=== PATIENT | female | born 1970 | race Caucasian/White ===

== ENCOUNTER 2023-09-01 09:56 | Outpatient (AMB) | payer OTHER, SELFPAY ==
--- NOTE | 2023-09-01 10:08 | MHC.PC.OV ---
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 She needs refills on Escitalopram 20 1 daily, and Famotidine 40 mg, for 90 day refills. Patient would like referrals to gynecology, colonoscopy, mammogram, neurology for MS dx. 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 ?? Prior PCP:?Terence BULLOCK at [facility] in [place], [place] Last office visit/CPE:?June 2022 Acute issue(s):? Concern for sleep apnea, ?? PMHx: MS diagnosed [address] Tolliver [place], [place]. , Anxiety,?GERD/Gastritis. SurgHx:? Cervical C6-7 discectomy 2010. Tubal Ligation FHx:? Mom: HyperParathyroid. Dad: Brain Aneurysm. GM: Osteoporosis. SocHx: Quit cigs 2007. EtOH: very seldom. No drugs PFSH Medical History (Updated 09/01/23 @ 11:09 by Soren Mast) Multiple sclerosis Surgical History (Updated 09/01/23 @ 11:01 by Soren Mast) H/O tubal ligation Hx of discectomy H/O spinal fusion Family History (Updated 09/01/23 @ 10:23 by Ida Garcia CMA) Daughter Mental health disorder Social History (Updated 09/01/23 @ 10:28 by Ida Garcia CMA) Household Members: None Both parents involved: No Caregiver staying overnight: No Housing: House Are you a primary medical care administrator to a significant other at home: No Do you presently have visiting nurse or other home services: No 75 years or older and lives alone: No Alcohol intake: current Alcohol intake frequency: holidays/special occasions only Alcohol type: wine Patient Tobacco Use Status: Former Tobacco user e-Cigarette/Vaping Use: Never Used service: Yes Current occupational status: employed 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 1. Little interest or pleasure in doing things: not at all 2. Feeling down, depressed, or hopeless: not at all 3. Trouble falling or staying asleep, or sleeping too much: not at all 4. Feeling tired or having little energy: not at all 5. Poor appetite or overeating: not at all 6. Feeling bad about yourself - or that you are a failure or have let yourself or your family down: not at all 7. Trouble concentrating on things, such as reading the newspaper or watching television: not at all 8. Moving or speaking so slowly that other people could have noticed. Or the opposite - being so fidgety or restless that you have been moving around a lot more than usual: not at all 9. Thoughts that you would be better off or of hurting yourself in some way: not at all Total score: 0 Depression Screening Interpretation: Negative Depression Screening Done: Yes Source: Developed by Drs. Kike Fontaine, Kerline Merlos, Marino Haines and colleagues, with an educational everardo from [employer]. Thrive Questionnaire Date Thrive assessed: 09/01/23 I am a: Patient What is your living situation today?: I have a steady place to live Within the past 12 months, did the food you bought not last and you didn't have the money to get more?: Never true Within the past 12 months, did you worry whether your food would run out before you got money to buy more?: Never true Do you have trouble paying for medicines?: No Do you have trouble getting transportation to medical appointments?: No Do you have trouble paying your heating and electricity bill?: No Do you have trouble taking care of your child, family member or friend?: No Do you have trouble with day-to-day activities such as bathing, preparing meals, shopping, managing finances, etc.?: No Are you currently unemployed and looking for a job?: No Are you interested in more education?: No THRIVE Score: 0 AUDIT C Alcohol Use Questionnaire (AUDIT-C) 1. How often do you have a drink containing alcohol?: Monthly or less 2. How many drinks containing alcohol do you have on a typical day when you are drinking?: 1 or 2 3. How often do you have six or more drinks on one occasion?: Never Total Score: 1 DOUG-7 AMB Questionnaire DOUG-7 Date DOUG - 7 assessed: 09/01/23 Feeling nervous, anxious, or on edge: 0 = Not at all Not being able to stop or control worryin = Not at all Worrying too much about different things: 0 = Not at all Trouble relaxin = Not at all Being so restless that it is hard to sit still: 0 = Not at all Becoming easily annoyed or irritable: 0 = Not at all Feeling afraid as if something awful might happen: 0 = Not at all Total DOUG-7 score (0-4 normal; 5-9 mild; 10-14 moderate; 15-21 severe): 0 Source: Developed by Drs. Kike Fontaine, Kerline Merlos, Marino Haines and colleagues, with an educational everardo from [employer]. DOUG-7 Assessment Billing DOUG-7 Assessment Tool: DOUG-7 Assessment 19032 Review of Systems Const Denies chills, Denies fatigue, Denies fever(s), Denies headache(s) and Denies weakness ENT Denies dizziness and Denies headache(s) Card Denies chest pain, Denies lightheadedness, Denies dyspnea and Denies other (Palpitations) Resp Denies cough, Denies dyspnea, Denies wheezing and Denies other ( shortness of breath) Musc Denies numbness and Denies tingling Neuro Denies dizziness, Denies headache(s), Denies numbness, Denies tingling, Denies paresthesias and Denies weakness Psych Denies anxiety and Denies depression Endo Denies fatigue Aller/Immun Denies wheezing Physical exam (Primary Care) Vital Signs: Last Vital Signs Pulse 69 09/01/23 10:09 BP 110/62 09/01/23 10:09 Pulse Ox 97 09/01/23 10:09 Oxygen Delivery Method Room Air 09/01/23 10:09 BMI result Body Mass Index 35.4 Tobacco/Smoking Status: Tobacco use Status Tobacco use date assessed 09/01/23 09/01/23 10:33 Patient Tobacco Use Status Former Tobacco user 09/01/23 10:33 e-Cigarette/Vaping Use Never Used 09/01/23 10:33 PHQ-9: PHQ-9 Score PHQ-9: Total score 0 09/01/23 10:38 Depression Screening Interpretation: Negative Thrive Assessment: Date of Thrive Assessment Date Thrive assessed 09/01/23 09/01/23 10:33 Const General: no acute distress and well developed Nutritional Appearance: well nourished Orientation/consciousness: patient oriented x3 HENMT Head: Yes normocephalic and Yes atraumatic Eyes General: appearance normal, both eyes and all related structures Pupils: Equal, round and reactive pupils present EOM: EOMs intact bilaterally Resp Effort & Inspection: normal respiratory effort Auscultation: clear to auscultation bilaterally Cardio Rate: regular rate Rhythm: regular rhythm Heart sounds: S1 normal heart sound present, S2 normal heart sound present, no gallops, no murmurs and no rubs Neuro General: patient oriented x3 and gait normal Cranial nerves: Yes Equal, round and reactive pupils present Psych Affect: normal affect Assessment and Plan Assessment & Plan (1) Multiple sclerosis: Code(s): G35 - Multiple sclerosis Plan: Patient?notes?diagnosis?of?multiple?sclerosis?and?will?have?her?neurologist's?notes?forwarded Referred?to?neurology?at?patient?request?as?she?has?moved?from?[place] (2) Depression with anxiety: Code(s): F41.8 - Other specified anxiety disorders Plan: Stable?on?escitalopram?but?patient?would?like?a?referral?to?a?therapist Refer?to?nurse?navigator?to?connect?her?with?a?therapist (3) Sleep apnea: Code(s): G47.30 - Sleep apnea, unspecified Plan: Witnessed?apneic?events?by??while?sleeping Referred?to?Sleep?Medicine (4) GERD (gastroesophageal reflux disease): Code(s): K21.9 - Gastro-esophageal reflux disease without esophagitis Plan: Continue?famotidine Referred?to?Gastroenterology (5) Screening for cervical cancer: Code(s): Z12.4 - Encounter for screening for malignant neoplasm of cervix Plan: 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?to?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?[facility] [place]?at?patient?request (6) Breast cancer screening by mammogram: Code(s): Z12.31 - Encounter for screening mammogram for malignant neoplasm of breast Plan: Mammogram?ordered (7) Screening for colon cancer: Code(s): Z12.11 - Encounter for screening for malignant neoplasm of colon Plan: As?above,?patient?is?referred?to?Gastroenterology (8) Hx of discectomy: Code(s): Z98.890 - Other specified postprocedural states Plan: Currently?stable?but?does?get?some?discomfort Encouraged?her?to?perform?exercises?learned?at?physical?therapy If?worsening?will?refer?her?to?physical?therapy?again (9) Obesity: Code(s): E66.9 - Obesity, unspecified Plan: Referred?to?nutrition?at?patient?request Orders: Orders Comprehensive [place]. Panel Fast Today Z00.00 - Encounter for general adult medical examination without abnormal findings Lipid Panel Today Z00.00 - Encounter for general adult medical examination without abnormal findings UA and rflx microscopic Today Z00.00 - Encounter for general adult medical examination without abnormal findings Vitamin D 25-OH Total Today E55.9 - Vitamin D deficiency, unspecified MM tomosynthesis screening BI Today Z12.31 - Encounter for screening mammogram for malignant neoplasm of breast Complete Blood Count Auto Diff Today Z00.00 - Encounter for general adult medical examination without abnormal findings Microalbumin, Random (w Creat) Today I10 - Essential (primary) hypertension TSH reflex Free T4 Today Z00.00 - Encounter for general adult medical examination without abnormal findings Vitamin B12 and Folate Today E53.8 - Deficiency of other specified B group vitamins Referrals Neurology Referral G35 - Multiple sclerosis Web Search Evaluator Nutrition Referral E66.9 - Obesity, unspecified SSIS ARCHITECT Referral Z12.4 - Encounter for screening for malignant neoplasm of cervix Sleep Medicine Referral G47.30 - Sleep apnea, unspecified Gastroenterology Referral K21.9 - Gastro-esophageal reflux disease without esophagitis, Z12.11 - Encounter for screening for malignant neoplasm of colon Nurse Navigator Referral F41.8 - Other specified anxiety disorders Medications: New escitalopram oxalate 20 mg PO DAILY 90 days 90 tabs 3RF famotidine 40 mg PO DAILY 90 days 90 tabs 3RF Coding Level of Care Code New Pt Level 3 (87689) Diagnoses Multiple sclerosis G35 Depression with anxiety F41.8 Sleep apnea G47.30 GERD (gastroesophageal reflux disease) K21.9 Screening for cervical cancer Z12.4 Breast cancer screening by mammogram Z12.31 Screening for colon cancer Z12.11 Hx of discectomy Z98.890 Obesity E66.9 Additional Codes DOUG-7 Assessment Billing - DOUG-7 Assessment Tool: DOUG-7 Assessment 37297 ([id number])
[2023-09-01 10:09] VITALS: BP 110/62; PULSE 69; O2SAT 97; BMI 35.4
== END 2023-09-01 11:07 | disposition home or self-care (01) ==
PROVIDERS: PCP Family Medicine; Visit Provider Family Medicine
DX: G35 Multiple sclerosis (principal); F41.8 Other specified anxiety disorders; G47.30 Sleep apnea, unspecified; Z68.35 Body mass index [BMI] 35.0-35.9, adult; E66.9 Obesity, unspecified; K21.9 Gastro-esophageal reflux disease without esophagitis; Z12.31 Encounter for screening mammogram for malignant neoplasm of breast; Z12.11 Encounter for screening for malignant neoplasm of colon; Z98.890 Other specified postprocedural states
CPT/HCPCS: 99203

== ENCOUNTER 2023-09-30 13:15 | Outpatient (AMB) | payer OTHER, SELFPAY ==
--- NOTE | 2023-09-30 13:17 | A.OFFVIS_ITS ---
VS Expanded 09/30/23 13:24 09/30/23 13:37 Height 5 ft 7 in 5 ft 7 in Weight 228 lb 6.382 oz 228 lb BMI 35.8 35.7 Intake Visit Reasons: OBESITY/LVM Allergies No Known Allergies Allergy (Verified 09/01/23 10:14) Nutrition Presentation Details: Pt presents for MNT for obesity. The Pt was referred by Dr. Chela Castaneda Pt reports having lack of meal planning BS Monitoring Most Recent Diabetes Results: No Data to Display SSJ-Gcfrpih-Zp.Jeor Equation Height: 5 ft 7 in Weight: 228 lb Resting Metabolic Rate: 1679.94 Calculated Activity Level: Mild Activity Calories Needed to Maintain Weight: 2309.92 Diagnosis Nutrition problem #1: food nutri know defi As related to (etiology) #1: diagnosis As evidenced by (sign/symptom) #1: knowledge deficit of diet PFSH Medical History (Updated 09/01/23 @ 11:09 by Soren Mast) Multiple sclerosis Surgical History (Updated 09/01/23 @ 11:01 by Soren Mast) H/O tubal ligation Hx of discectomy H/O spinal fusion Family History (Updated 09/01/23 @ 10:23 by Ida Garcia CMA) Daughter Mental health disorder Social History (Updated 09/01/23 @ 10:28 by Ida Garcia CMA) Household Members: None Both parents involved: No Caregiver staying overnight: No Housing: House Are you a primary health care consultant to a significant other at home: No Do you presently have visiting nurse or other home services: No 75 years or older and lives alone: No Alcohol intake: current Alcohol intake frequency: holidays/special occasions only Alcohol type: wine Patient Tobacco Use Status: Former Tobacco user e-Cigarette/Vaping Use: Never Used service: Yes Current occupational status: employed 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 [employer] Cognitive needs: No Hearing needs: Yes (wears hearing aids for tinnitis) Vision needs: Yes (Patient wears glasses.) Assessment & Plan Assessment & Plan (1) Obesity: Code(s): E66.9 - Obesity, unspecified Category: Medical Plan Wt: 108 Kg ( 09/28 ) Est kcal needs as per MSJ: 2300 (40% carb, 30% protein/fat) Est fluid needs as per 25-30 ml/d: 3200 Est prot per day as per 1 g/kg bw: 108 Recommend fiber intake : 8-10 g per day and gradually increase to 25-28 g per day for women and 35-38 g for men or as tolerated Recommend sodium intake per day : less than 2000 mg Educated patient on: ( R = reviewed V = verbalizes understanding N/R = needs review N/A = not applicable * Food sources of carbohydrate, adequate serving sizes and its role in various health conditions: R * Differences between complex carbohydrates a simple carbohydrates, role of fiber in diet: R * Lean protein sources of foods: R * Differences between types of fats and role in diet (mono on saturated fat fatty acids, saturated fatty acids, trans fats): R V N/R * Food sources of sodium in salt and healthy modifications for heart health in kidney health: R V R/V * Vitamins and minerals: R V N/R * Healthy plate method concept: R * Physical activity: Benefits a precaution: R V N/R Patient Instructions: Have 3 meals a day working on reducing carbs to< 75 g per meal HAve 2-3 snacks per day consisting of, 0-20 g of carbs HAve water with meals Coding Level of Care Code Nutr Indiv Intake (16961) Diagnoses Obesity E66.9 Time Spent (min) 30
[2023-09-30 13:24] VITALS: BMI 35.8
[2023-09-30 13:37] VITALS: BMI 35.7
== END 2023-09-30 14:01 | disposition home or self-care (01) ==
PROVIDERS: PCP Family Medicine; Visit Provider Dietitian, Registered
DX: E66.9 Obesity, unspecified (principal)

== ENCOUNTER → 2023-09-30 13:15 | Outpatient (BNVA) | payer OTHER, SELFPAY | PROVIDERS: PCP Family Medicine; Visit Provider Dietitian, Registered | DX: E66.9 Obesity, unspecified (principal); Z68.35 Body mass index [BMI] 35.0-35.9, adult; Z71.3 Dietary counseling and surveillance | CPT/HCPCS: 97802 ==

== ENCOUNTER 2023-12-14 15:41 | Outpatient (REF) | payer OTHER, SELFPAY ==
--- NOTE | ~2023-12-14 | MM_ITS ---
EXAMINATION: MM SCREENING DIGITAL BREAST TOMOSYNTHESIS, BILATERAL CLINICAL INFORMATION: Screening. Asymptomatic. COMPARISON: Mammography: Comparison is made with available priors TECHNIQUE: Digital breast mammography with tomosynthesis is performed in both the craniocaudal and mediolateral oblique views along with computer-aided detection (CAD). FINDINGS: There are scattered areas of fibroglandular density (ACR BI-RADS breast composition Category b). There are no significant masses, abnormal calcifications, or other abnormalities. MM/MM tomosynthesis screening BI IMPRESSION: No mammographic evidence of malignancy. ASSESSMENT: BI-RADS BI-RADS 1 - Negative RECOMMENDATION: Routine annual mammography screening. 1 year F/U This examination should not preclude the clinical evaluation of a suspicious palpable abnormality. This patient's information was entered into a reminder system with a target due date for their next mammogram. Electronically signed by: Pati Del Rio DO 12/28/2023 12:18 PM EDT
== END 2023-12-14 15:42 | disposition home or self-care (01) ==
LOC: HO.MAMMO 15:41
PROVIDERS: PCP Family Medicine; Visit Provider Family Medicine
DX: Z12.31 Encounter for screening mammogram for malignant neoplasm of breast (principal)
CPT/HCPCS: 77063; 77067

== ENCOUNTER → 2023-12-14 15:45 | Outpatient (BNV) | payer OTHER, SELFPAY | PROVIDERS: PCP Family Medicine; Visit Provider Internal Medicine | DX: Z12.31 Encounter for screening mammogram for malignant neoplasm of breast (principal) | CPT/HCPCS: 77063; 77067 ==

== ENCOUNTER 2023-12-28 08:25 | Outpatient (REF) | payer OTHER, SELFPAY ==
[2023-12-30 17:53] LABS: HPV mRNA E6/E7 Not Detected (Not Detected)
== END 2023-12-28 08:26 | disposition home or self-care (01) ==
LOC: HO.LNP 08:25
PROVIDERS: PCP Family Medicine; Visit Provider Advanced Practice Midwife
DX: Z01.419 Encounter for gynecological examination (general) (routine) without abnormal findings (principal); R23.2 Flushing; N95.2 Postmenopausal atrophic vaginitis
CPT/HCPCS: 87624; 88175

== ENCOUNTER 2023-12-28 08:25 | Outpatient (AMB) | payer OTHER, SELFPAY ==
[2023-12-28 08:32] VITALS: BP 120/76; BMI 35.5
--- NOTE | 2023-12-28 08:32 | A.OFFVIS_ITS ---
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 She is doing well with concerns: severe hot flashes, LMP age 52 >12months, and dysparenia. Attempting to eat a healthy diet with calcium and vitamin D and stays active with exercise-walking. STI testing offered; she declines. Last pap smear; approx. 5 years ago. Last mammogram; pending read. Colonoscopy consult appt. is booked. Denies any family history of breast or colon cancer. Paternal great aunt- ovarian cancer. [facility] Medical History (Updated 12/28/23 @ 08:54 by Brittni Stovall CNM) Depression with anxiety GERD (gastroesophageal reflux disease) Multiple sclerosis Surgical History H/O tubal ligation Hx of discectomy H/O spinal fusion Family History Daughter Mental health disorder Social History Household Members: None Both parents involved: No Caregiver staying overnight: No Housing: House Are you a primary career orientation teacher to a significant other at home: No Do you presently have visiting nurse or other home services: No 75 years or older and lives alone: No Alcohol intake: current Alcohol intake frequency: holidays/special occasions only Alcohol type: wine Patient Tobacco Use Status: Former Tobacco user e-Cigarette/Vaping Use: Never Used service: Yes Current occupational status: employed 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 [employer] Cognitive needs: No Hearing needs: Yes (wears hearing aids for tinnitis) Vision needs: Yes (Patient wears glasses.) Female Reproductive History Menstrual Menopause type: natural Total pregnancies: 2 Full term: 1 Number of Living Children: 1 Review of Systems Const All systems reviewed & are unremarkable except as noted in HPI and below Reports as per HPI Eyes Reports no additional complaints ENT Reports no additional complaints Card Reports no additional complaints Resp Reports no additional complaints GI Reports as per HPI and Reports no additional complaints Reports as per HPI Musc Reports no additional complaints Skin/Breast Reports as per HPI Neuro Reports no additional complaints Psych Reports no additional complaints Endo Reports no additional complaints Froylan/Lymph Reports no additional complaints Aller/Immun Reports no additional complaints Physical Exam Vital Signs: Last Vital Signs BP 120/76 12/28/23 08:32 BMI result Body Mass Index 35.5 Const General: cooperative, healthy appearing, no acute distress, well developed and alert Orientation/consciousness: patient oriented x3 HEENT Head: Yes normal to inspection Eyes General: appearance normal, both eyes and all related structures Neck Neck: Yes normal visual inspection Thyroid: Thyroid normal Chest Chest palpation & inspection: normal inspection of the chest and other (no puckering, dimpling, peau de orange, retraction, discharge, masses) Breast/axilla inspection: normal inspection of the breasts Breast/axilla palpation: normal palpation of the breasts Resp Effort & Inspection: normal respiratory effort GI Inspection: Yes normal to inspection Palpation (GI): Soft to palpation Rectal Exam - Female: deferred General: Yes bladder normal to palpation External Female Exam: normal external appearance and normal appearance of the urethra Speculum Exam - Vagina: normal appearance of the vagina, normal palpation, normal vaginal discharge and vagina atrophic Speculum Exam - Cervix: normal appearance of the cervix, normal palpation and Other cervical findings present (Bled slightly with Pap) Bimanual exam- vagina & uterus: normal bimanual exam, normal palpation, uterine size normal, bladder normal to palpation, normal palpation and non-tender Bimanual Exam- Adnexa, other: no masses Skin General skin exam: no rashes or lesions noted Rashes: no rashes Neuro General: patient oriented x3 Cognition (Neuro): normal cognition Extrem General: Yes normal to inspection Psych Attitude: cooperative Thought process: Normal thought process present Assessment & Plan Assessment & Plan (1) Encounter for well woman exam with routine gynecological exam: Code(s): Z01.419 - Encounter for gynecological examination (general) (routine) without abnormal findings Category: Medical (2) Hot flashes: Code(s): R23.2 - Flushing (3) Vaginal atrophy: Code(s): N95.2 - Postmenopausal atrophic vaginitis Plan Discussed: Current recommendations for pap smears per ASCCP guidelines. Breast awareness, periodic self breast exams and yearly mammogram. Maintain a healthy lifestyle, well balanced diet including Calcium 1,200 mg and Vitamin D 600 IU daily, and routine exercise. Mediterranean diet information and calcium handout provided. Menopause.org information, HRT benefits and risk. Including systemic topical use. Follow up after review of literature to decide which route she would like to explore. Replens, vaginal lubricants use reviewed. Contact the office with any postmenopausal bleeding. Patient verbalizes understanding and agrees to the plan of care. She was given opportunity to ask questions and all questions were answered to the best of my ability. 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 This note is constructed using voice recognition software. While every effort has been made to ensure accuracy, crab catcher errors may have been included. Orders: Orders PAP + HPV E6/E7 rfx 18/45 Today Z01.419 - Encounter for gynecological examination (general) (routine) without abnormal findings Coding Level of Care Code New Pt Prev Care 40-64y(37233) Diagnoses Encounter for well woman exam with routine gynecological exam Z01.419 Hot flashes R23.2 Vaginal atrophy N95.2
== END 2023-12-28 09:28 | disposition home or self-care (01) ==
PROVIDERS: PCP Family Medicine; Visit Provider Advanced Practice Midwife
DX: Z01.419 Encounter for gynecological examination (general) (routine) without abnormal findings (principal); R23.2 Flushing; N95.2 Postmenopausal atrophic vaginitis
CPT/HCPCS: 99386

== ENCOUNTER 2024-03-29 07:56 | Outpatient (AMB) | payer OTHER, SELFPAY ==
--- OUTSIDE RECORDS SUMMARY | 2024-03-29 07:59 | XMS_ITS | Continuity of Care Document ---
Author Name [facility] Organization 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 Unavailable Unavailable Problems Combined list of problems from Department of Defense and Veterans Affairs facilities. It does not include entries that were removed or entered in error. Problem Status Onset Date Problem Type Date of Resolution Comments Source Gastro-esophageal reflux disease without esophagitis Active 12/22/2017 Condition DoD Demyelinating disease of central nervous system, unspecified Active 12/18/2016 Condition DoD Adjustment disorder with mixed anxiety and depressed mood Active 12/18/2016 Condition DoD Low back pain Active Condition [facility] Strain of muscle, fascia and tendon of other parts of biceps, right arm Active Condition [facility] depression with anxiety Active Condition [facility] anxiety Active Condition DoD visit for: screening exam Inactive Condition DoD atypical chest pain Inactive Condition D oD Administrative Evaluation Services Inactive Condition DoD visit for: examination Inactive Condition [facility] visit for: administrative purpose Inactive Condition [facility] Patient Counseling: Inactive Condition D oD visit for: services physical Inactive Condition DoD Need For Vaccination Against Influenza Inactive Condition DoD Need For Vaccination Hepatitis A And Hepatitis B Inactive Condition DoD Need For Vaccination Yellow Fever Inactive Condition DoD Need For Vaccination Typhoid Inactive Condition DoD visit for: screening exam for malignant neoplasm cervix Inactive Condition DoD routine gynecological exam with cervical pap smear Inactive Condition DoD Medications Combined list of outpatient medications from Department of Defense and Veterans Affairs facilities.Medications provided include 1) outpatient medications from the last 15 months, and 2) patient-reported medications. Medication Details Route Status Patient Instructions Prescription Expires Prescription Number Last Dispense Date Ordering Provider Order Date Order Qty Source COMIRNATY [id number] (COVID vac 2022- (12 yr and up) XBB.1.5 (raxtozinam clement)/PF), 30 MCG/0.3, VIAL, INTRAMUSC, PFIZER US PHARM, .3 ml VIAL Active [id number] 2023 0.3 Pharmac y Data Transac tion Service Facilit y ESCITALOPRA M OXALATE (escitalopr am oxalate), 20 MG, TABLET, ORAL, [employer] 90 ea. BOTTLE Active [id number] 4 2023 90 Pharmac y Data Transac tion Service Facilit y ESCITALOPRA M OXALATE (escitalopr am oxalate), 20 MG, TABLET, ORAL, [employer] [facility], 100 ea. BOTTLE Active [id number] 4 2023 90 Pharmac y Data Transac tion Service Facilit y ESCITALOPRA M OXALATE (escitalopr am oxalate), 20 MG, TABLET, ORAL, [employer], 100 ea. BOTTLE Cancele d [id number] : 2023 0 Pharmac y Data Transac tion Service Facilit y FAMOTIDINE (FAMOTIDINE ), 40MG, TABLET, ORAL, [employer]AX PHARMACE[employer], 100 ea. BOTTLE Active [id number] 4 2023 90 Pharmac y Data Transac tion Service Facilit y FAMOTIDINE (FAMOTIDINE ), 40MG, TABLET, ORAL, [employer] PHARM[employer], 100 ea. BOTTLE Cancele d [id number] : 2023 0 Pharmac y Data Transac tion Service Facilit y OSELTAMIVIR PHOSPHATE (oseltamivi r phosphate), 75 MG, CAPSULE, ORAL, AMNEAL PHARMACE, 10 ea. BLIST PACK Active [id number] 3 2023 10 Pharmac y Data Transac tion Service Facilit y SHINGRIX (varicella- zoster virus glycoprotei n E,rec/AS01B adjuvant/PF ), 50 MCG/0.5, KIT, INTRAMUSC, GLAXOSMITHK LINE, 1 ea. KIT Active [id number] 4 2023 1 Pharmac y Data Transac tion Service Facilit y Allergies, Adverse Reactions, Alerts Combined list of allergies from Department of Defense and Veterans Affairs facilities. It does not include entries that were removed or entered in error. Substance Category Reaction Severity Reaction type Status Date Reported Comments Source No Known Allergies Drug allergy (disorder) active 3 [facility] Immunizations Combined list of available immunizations from the Department of Defense and Veterans Affairs facilities. Immunization Series Date Given Administered By Site Reaction Lot Number CVX Code Drug Leather Cleaner Status Comments Source zoster recombinant 2023 () Not Given zoster recombina nt DoD COVID-19, mRNA, LNP-S, PF, 30 mcg/0.3 mL dose 2020 NZEOGU, [employer] [facility] (PFR) Not Given COVID-19, mRNA, LNP-S, PF, 30 mcg/0.3 mL dose DoD influenza, injectable, quadrivalent, preservative free 2020 NZEOGU, () Not Given influenza , injectabl e, quadrival ent, preservat sadiq free DoD SARS-COV-2 (COVID-19) vaccine, mRNA, spike protein, LNP, preservative free, 30 mcg/0.3mL dose [address] HERNÁNDEZ [id number] [employer] (PFR) complet ed SARS-COV- 2 (COVID-19 ) vaccine, mRNA, spike protein, LNP, preservat sadiq free, 30 mcg/0.3mL dose DoD SARS-COV-2 (COVID-19) vaccine, mRNA, spike protein, LNP, preservative free, 30 mcg/0.3mL dose 1 2020 TAMARA SPARKS [id number] 208 [employer] (PFR) complet ed SARS-COV- 2 (COVID-19 ) vaccine, mRNA, spike protein, LNP, preservat sadiq free, 30 mcg/0.3mL dose DoD influenza, injectable, quadrivalent, preservative free 2019 NZEOGU, () Not Given influenza , injectabl e, quadrival ent, preservat sadiq free DoD measles, mumps, rubella, and varicella virus vaccine 1 2017 ROCIO HUITRON [id number] 94 Merck (MSD) complet ed measles, mumps, rubella, and varicella virus vaccine DoD tetanus toxoid, reduced diphtheria toxoid, and acellular pertu is vaccine, adsorbed 1 2017 ROCIO HUITRON [id number] [place], [place] [address] (SKB) complet ed tetanus toxoid, reduced diphtheri a toxoid, and acellular pertussis vaccine, adsorbed DoD pneumococcal conjugate vaccine, 13 valent 1 2017 ROCIO HUITRON [id number] Other (OTH) complet ed pneumococ rubina conjugate vaccine, 13 valent DoD Influenza, injectable, quadrivalent, preservative free 1 2017 ROCIO HUITRON N [id number] 150 SmithKline (SKB) complet ed Influenza , injectabl e, quadrival ent, preservat sadiq free DoD Influenza, seasonal, injectable, preservative free 7 2014 Unknown, Provider [id number] [employer]. (CS) complet ed Influenza , seasonal, injectabl e, preservat sadiq free DoD measles, mumps and rubella virus vaccine 1 2014 [id number] Merck (MSD) complet ed measles, mumps and rubella virus vaccine DoD typhoid Vi capsular polysaccharid e vaccine 1 2014 [id number] 101 Sanofi Pasteur (PMC) complet ed typhoid Vi capsular polysacch aride vaccine DoD Influenza, seasonal, injectable 1 2013 141 Transcribed (TRS) complet ed Influenza , seasonal, injectabl e DoD hepatitis B vaccine, adult dosage 3 2012 [id number] 43 [employer] (SKB) complet ed hepatitis B vaccine, adult dosage DoD Influenza, injectable, Madin [place] Canine Kidney, preservative free 1 2012 [id number] 153 Novartis DeYapa. (NOV) complet ed Influenza , injectabl e, Madin [place] Canine Kidney, preservat sadiq free DoD influenza virus vaccine, whole virus 1 2012 DANAY VARGHESE [id number] 16 Sanofi Pasteur (PMC) complet ed influenza virus vaccine, whole virus DoD yellow fever vaccine 1 2012 DANAY VARGHESE [id number] Sanofi Pasteur (PMC) complet ed yellow fever vaccine DoD typhoid vaccine, unspecified formulation 1 2012 91 Transcribed (TRS) complet ed typhoid vaccine, unspecifi ed formulati on DoD typhoid Vi capsular polysaccharid e vaccine 1 2012 DANAY VARGHESE [id number] 101 Sanofi Pasteur (PMC) complet ed typhoid Vi capsular polysacch aride vaccine DoD hepatitis A and hepatitis B vaccine 1 2012 DANAY VARGHESE [id number] 104 [employer] (SKB) complet ed hepatitis A and hepatitis B vaccine DoD seasonal influenza, intradermal, preservative free 0 2012 [id number] [id number] 144 Sanofi Pasteur ([facility]) complet ed seasonal influenza , intraderm al, preservat sadiq free DoD influenza nasal, unspecified formulation 1 2012 151 Transcribed (TRS) complet ed influenza nasal, unspecifi ed formulati on DoD influenza virus vaccine, split virus (incl. purified surface antigen)-reti red CODE 0 2009 [id number] 15 [employer]. ([facility]) complet ed influenza virus vaccine, split virus (incl. purified surface antigen)- retired CODE DoD hepatitis A and hepatitis B vaccine 1 2009 [id number] 104 [employer] (SKB) complet ed hepatitis A and hepatitis B vaccine DoD tuberculin skin test; purified protein derivative solution, intradermal 1 2006 Unknown, Provider [id number] 96 Sanofi Pasteur ([facility]) complet ed tuberculi n skin test; purified protein derivativ e solution, intraderm al DoD tetanus and diphtheria toxoids, adsorbed, preservative free, for adult use (2 Lf of tetanus toxoid and 2 Lf of diphtheria toxoid) 1 2006 [id number] 09 Sanofi Pasteur ([facility]) complet ed tetanus and diphtheri a toxoids, adsorbed, preservat sadiq free, for adult use (2 Lf of tetanus toxoid and 2 Lf of diphtheri a toxoid) DoD poliovirus vaccine, inactivated 1 2006 [id number] 10 Sanofi Pasteur ([facility]) complet ed polioviru s vaccine, inactivat ed DoD influenza virus vaccine, split virus (incl. purified surface antigen)-reti red CODE 1 2006 [id number] 15 [employer] ([facility]) complet ed influenza virus vaccine, split virus (incl. purified surface antigen)- retired CODE DoD tetanus toxoid, reduced diphtheria toxoid, and acellular pertu is vaccine, adsorbed 1 2006 115 Transcribed (TRS) complet ed tetanus toxoid, reduced diphtheri a toxoid, and acellular pertussis vaccine, adsorbed DoD measles, mumps and rubella virus vaccine 1 2006 03 Transcribed (TRS) complet ed measles, mumps and rubella virus vaccine DoD human immunodeficie ncy virus vaccine 0 1998 UNKNOWN 61 Unknown (UNK) comple t ed human immunodef iciency virus vaccine DoD influenza virus vaccine, split virus (incl. purified surface antigen)-reti red CODE 0 [id number] 15 Mariza (WAL) complet ed influenza virus vaccine, split virus (incl. purified surface antigen)- retired CODE DoD typhoid vaccine, parenteral, other than acetone-kille d, dried 0 1997 [id number] 41 Sanofi Pasteur (PMC) complet ed typhoid vaccine, parentera l, other than acetone-k illed, dried DoD hepatitis A vaccine, adult dosage 2 1997 [id number] 52 Other (OTH) complet ed hepatitis A vaccine, adult dosage DoD hepatitis A vaccine, adult dosage 1 1997 UNKNOWN 52 Unknown (UNK) comple t ed hepatitis A vaccine, adult dosage DoD tetanus and diphtheria toxoids, adsorbed, preservative free, for adult use (2 Lf of tetanus toxoid and 2 Lf of diphtheria toxoid) 0 1994 UNKNOWN 09 Unknown (UNK) comple t ed tetanus and diphtheri a toxoids, adsorbed, preservat sadiq free, for adult use (2 Lf of tetanus toxoid and 2 Lf of diphtheri a toxoid) DoD Encounters Combined list of: 1) Encounters from Department of Veterans Affairs facilities going back up to thelast 18 months. 2) Encounters from the Department of Defense facilities going back up to 280 months. Location Location Details Encounter Type Encounter Number Reason For Visit Attending Provider ADM Date DC Date Status Disposition Source [facility] [place] [facility]) OUTPATIENT [id number] ANNUAL PAP [id number] MABEL BECERRA 07/02 Released w/o Limitations [facility](M[facility] [place] T[facility]) [facility](Immuniz ation [place]) OUTPATIENT [id number] Notes Entered by: HECTOR SAM 05 Jul 2012 0710 ------- ------- ------- ------- -- DANAY Serrato 07/05 Released w/o Limitations [facility](Imm unizati on [place]) [facility](Immuniz ation [place]) OUTPATIENT [id number] Notes Entered by: TIRSO CASTELAN P 08 Jul 2012 1317 ------- ------- ------- ------- -- Review VIRGIE CASTELAN 07/08 Released w/o Limitations [facility](Imm unizati [facility] [place]) [facility] [place]) OUTPATIENT [id number] VALENTÍN Avila 07/15 Released w/o Limitations [facility](Dep loyment Health [place]) [facility] [place] [facility]) TELE CONSULT [id number] Notes Entered by: Adiel GARRIDO 17 Jul 2012 1737 ------- ------- ------- ------- -- T-CON - Lab Result STERLING STROUD 07/17 [facility]([place] [facility]) [facility] [place] [facility]) TELE CONSULT [id number] Notes Entered by: Farooq MC 25 Jul 2012 1118 ------- ------- ------- ------- -- Mail out/pap [facility]25 [facility] [place] [facility]) [facility] [place] [facility]) TELE CONSULT [id number] Notes Entered by: PATRICIA ANDERS 01 Jan 2013 1718 ------- ------- ------- ------- -- labs? PATRICIA POWERS 01/01 [facility] [place] [facility]) [facility] [place] [facility]) OUTPATIENT [id number] [facility] [place] [facility] MABEL Nunez 01/03 Released w/o Limitations [facility](MHP [place] T[facility]) [facility](Emergen cy Medicine [facility]) OUTPATIENT [id number] TAYLA ANGELA 05/02 Released w/o Limitations [facility](Julia rgency Medicin e [facility]) [facility](Cardiol ogy [facility]) TELE CONSULT [id number] Notes Entered by: ENRIQUE LEUNG 05 May 2013 0856 ------- ------- ------- ------- -- DARCY instruc VEL Bowman 05/05 [facility](Car diology [facility]) [facility](Cardiol ogy [facility]) OUTPATIENT [id number] ECHO STRESS ANDREA AGUILAR 05/08 Released w/o Limitations [facility](Car diology [facility]) [facility] [place] T[facility]) OUTPATIENT [id number] F/U CARDIOL OGY TEST MABEL BECERRA 06/02 Released w/o Limitations [facility](M[facility] [place] T[facility]) [facility] [place] [facility]) OUTPATIENT [id number] anxiety issues, possibl e medicat ion MABEL BECERRA 12/19 Released w/o Limitations [facility] [place] [facility]) [facility] [place] [facility]) OUTPATIENT [id number] follow up on anti anxiety med/ct ght loss MABEL BECERRA 03/22 Released w/o Limitations [facility] [place] T[facility]) [facility] [place] [facility]) TELE CONSULT [id number] Notes Entered by: Adiel GARRIDO 29 Mar 2014 1830 ------- ------- ------- ------- -- T-CON - Lab results STERLING STROUD 03/29 [facility] [place] T[facility]) [facility](Health Promotion [facility]CP) TELE CONSULT [id number] Notes Entered by: JESUS LE 17 May 2014 1247 ------- ------- ------- ------- -- Tel referra l assess EMIGDIO Amezcua 05/17 Other Not Elsewhere Classified [facility](Hea lth Promoti on [facility]CP) [facility] [place] [facility] [place] [facility]) TELE CONSULT [id number] JANA RCISTIANA Rebekah 05/17 [facility] [place] [place] [facility]) [facility] [place] [facility](Health Promotion [facility]) TELE CONSULT [id number] Notes Entered by: JESUS LE 22 May 2014 1201 ------- ------- ------- ------- -- Attempt ed to call for referra l follow up EIMGDIO SANABRIA 05/22 Other Not Elsewhere Classified [facility](Hea lth Promoti on NMCP) [facility] [place] [facility](Health Promotion [facility]) TELE CONSULT [id number] Notes Entered by: JESUS LE 23 May 2014 1332 ------- ------- ------- ------- -- Referra l follow up-requ ests EMIGDIO Panchal pe 05/23 Other Not Elsewhere Classified [facility]Hea [facility]th Promoti on [facility] [place] [facility] [place] [facility] OUTPATIENT [id number] F/U MABEL PHILLIPS 05/27 Released w/o Limitations [facility] [place] [place] [facility] [facility] [place] [facility] [place] [facility]) TELE CONSULT [id number] Notes Entered by: WILLIAM DELGADO 11 Jun 2014 0944 ------- ------- ------- ------- -- Message from WILLIAM Brooks 06/11 Referred for Appointment [facility] [place] [facility]) [facility] OUTPATIENT [id number] bilater al foot swellin adiel GIBSONHARRIETJAILYN S 06/18 Released with Work/Duty Limitations [facility]) OUTPATIENT [id number] f/u per Dr. Garcia from bilat foot DENIA aGtes 06/19 Released w/o Limitations [facility]) [facility] [place] [facility]) TELE CONSULT [id number] Notes Entered by: ED NICOLE 03 Jul 2014 1146 ------- ------- ------- ------- -- Pt of Mrs. Becerra, out of depress ion medicat ion FAITH MORENO 07/03 Referred for Appointment [facility] [place] [facility]) [facility] [place] [facility]) OUTPATIENT [id number] R FOOT INJURY X 2 DAYS CRISTIANA BATES 07/16 Released w/o Limitations [facility]([place] [facility]) [facility](Neurolo gy [facility]CP) OUTPATIENT [id number] spec MARLEY CRESPO 08/02 Released w/o Limitations [facility](Mariya rology NMCP) [facility] [place] [facility]) OUTPATIENT [id number] F/U FOR LEFT SIDE FACE PAIN CRISTIANA BATES 08/12 Released w/o Limitations [facility]([place] [facility]) [facility](Orthope dic [facility]CP) OUTPATIENT [id number] LIMB PAIN FOOT AND TOES TAYLOR AMBROCIO 08/28 Released w/o Limitations [facility](Ort hopedic [facility]) [facility](NM[facility] Referral [facility]) TELE CONSULT [id number] Notes Entered by: JENNY THOMAS 02 Oct 2014 1035 ------- ------- ------- ------- -- NETWORK RESULTS -ENT F/U-09/06- 77923 CRISTIANA BATES Rebekah 10/02 [facility] P Referra l Clinic) [facility] [place] [facility]) OUTPATIENT [id number] BONE GROWTH IN MOUTH X4MTHS MABEL BECERRA 10/03 Released w/o Limitations [facility] [place] T1) [facility](Neurolo gy [facility]) OUTPATIENT [id number] F/U MARLEY CRESPO 10/22 Released w/o Limitations [facility](Mariya rology NMCP) [facility] [place] [facility]) OUTPATIENT [id number] F/U ANXIETY MABEL BECERRA 11/21 Released w/o Limitations [facility] [place] T1) [facility] [place] T[facility]) OUTPATIENT [id number] PAP EXAM -1971 MABEL BECERRA 01/01 Released w/o Limitations [facility] [place] T1) [facility](Neurolo gy [facility]CP) TELE CONSULT [id number] Notes Entered by: IVET CHACKO 12 Mar 2015 1140 ------- ------- ------- ------- -- Pt states that she needs a consult for an mri ZAK, MARLEY 03/12 [facility](Mariya rology NMCP) [facility] [place] T1) TELE CONSULT [id number] Notes Entered by: PROMISE JESUS 22 May 2015 0823 ------- ------- ------- ------- -- Med refill MABEL BECERRA 05/21 [facility] [place] T[facility]) [facility](Neurolo gy [facility]) OUTPATIENT [id number] fol/up MARLEY CRESPO 06/17 Released w/o Limitations [facility](Mariya eisenberg NMCP) [place] [facility]) OUTPATIENT [id number] EST PCM- F/U Anxiety taking Wellbut rin EZEQUIEL HUTCHINSON 09/10 Released w/o Limitations [place] [facility]) [facility] [place] T[facility]) TELE CONSULT [id number] Notes Entered by: FAITH MORENO 15 Oct 2015 0945 ------- ------- ------- ------- -- Pop [facility] FAITH MORENO 10/14 Referred for Appointment [facility] [place] [facility] OUTPATIENT [id number] cough and congest ion x 8 days OTCs not working . bilater al ear ache EZEQUIEL HUTCHINSON 01/12 Released w/o Limitations [place] [facility] OUTPATIENT [id number] acid reflux symptom s EZEQUIEL HUTCHINSON 02/16 Released w/o Limitations [place] [facility] [facility] TELE CONSULT [id number] Notes Entered by: ANDREW KAHN 31 Mar 2016 1337 ------- ------- ------- ------- -- Refill bupropr ion JULITO KAHN 03/31 [place] [facility] OUTPATIENT [id number] med refill EZEQUIEL HUTCHINSON 04/16 Released with Work/Duty Limitations [place] [facility] TELE CONSULT [id number] Notes Entered by: EZEQUIEL HUTCHINSON 05 May 2016 1317 ------- ------- ------- ------- -- lab JASPER, EZEQUIEL E 05/05 [place] [facility] [facility] OUT[place] [id number] MED REFILL JASPER, EZEQUIEL E 06/05 Released w/o Limitations [place] [facility] [place] [facility] OUTPATIENT [id number] QUESTIO NS REGARDI NG MED JASPER, EZEQUIEL E 10/22 Released w/o Limitations [place] [facility] [facility] OUT[place] [id number] L Forearm pain x 3 weeks JASPER, EZEQUIEL E 12/17 Released w/o Limitations [place] [facility] [facility] [id number] Med refill JASPER, EZEQUIEL E 02/22 Released w/o Limitations [place] [facility] [facility] [id number] Notes Entered by: LAURYN NUNN ON N 05 Apr 2017 1042 ------- ------- ------- ------- -- MMRV, TD, PCV13, FLU SHOT BELLO CAPPS 04/05 Released w/o Limitations [place] [facility] [facility] OUT[place]IENT [id number] Med Refill JASPER, EZEQUIEL E 05/07 Released w/o Limitations [place] [facility] [facility] [id number] well woman exam JASPER, EZEQUIEL E 06/14 Released w/o Limitations [place] [facility] [facility]) TELE CONSULT [id number] Notes Entered by: Nestor MCALLISTER 27 Sep 2017 1230 ------- ------- ------- ------- -- CM follow up MIKE MCALLISTER 09/27 [place]) [place] [facility] OUTPATIENT [id number] medicat ion refill nexium EZEQUIEL HUTCHINSON 12/22 Released w/o Limitations [place] [facility] [place] OUT[place]IENT [id number] ERIKA ALCAZAR 12/29 Released w/o Limitations [place] [facility] TELE CONSULT [id number] Notes Entered by: EZEQUIEL HUTCHINSON 21 Jan 2018 1247 ------- ------- ------- ------- -- labs- elevate d TSH EZEQUIEL HUTCHINSON 01/21 [place] TELE CONSULT [id number] Notes Entered by: EZEQUIEL HUTCHINSON 26 Jan 2018 0912 ------- ------- ------- ------- -- pt in for thryoid check EZEQUIEL HUTCHINSON 01/26 [place] [facility] [facility] OUT[place] [id number] 2 referra l for neuro f/u EZEQUIEL HUTCHINSON 02/04 Released w/o Limitations [place] [facility] OUT[place] [id number] 3 bite by cat yesterd ay, cat not up to date on shots GAYLE, HY G 06/02 Released w/o Limitations [place] [facility] [facility] NMCP) TELE CONSULT [id number] Notes Entered by: CHARLENE LENTZ 10 Oct 2018 1534 ------- ------- ------- ------- -- Medicin e refill MIYA LENTZ 10/10 [facility]([employer] [facility] NMCP) [place] [facility] TELE CONSULT [id number] Notes Entered by: Farooq VALDERRAMA 30 Jan 2020 1311 ------- ------- ------- ------- -- med request patient from out of town BILLY VALDERRAMA 01/29 [place] [facility] [facility] NMCP) OUTPATIENT [id number] - Pain In Right Shoulde IVIS Berry 06/03 Released w/o Limitations [facility](Spo rts Ortho NMCP) [facility](Immuniz ation [place]) OUTPATIENT [id number] Notes Entered by: RAJAN KIM 12 Jun 2020 0928 ------- ------- ------- ------- -- 1ST DOSE COVID VACCINE . TAMARA SPARKS 06/12 Released w/o Limitations [facility](Imm unizati [facility] [place]) [facility] [facility] [place] OUTPATIENT [id number] 1 Notes Entered by: RAJAN KIM 04 Jul 2020 1257 ------- ------- ------- ------- -- 2ND DOSE COVID VACCINE CHRIS GLOVER 07/04 Released w/o Limitations [facility](Imm unizati on [place]) [facility] Outpatient Encounter [id number] Danika GOVEA 12/15 [facility] Outpatient Encounter [id number] 12/17 [facility] Outpatient Encounter [id number] 05/26 [facility] Outpatient Encounter [id number] 09/13 [facility] Outpatient Encounter [id number] 01/11 [facility] Procedures Combined list of: 1) Procedures from Department of [facility] Affairs facilities going back up to thelast 18 months, not all [place] non-surgical procedures are included; 2) All procedures from the Department of Defense facilities. Procedure Procedure Type Code Date Perfomer Comments Sour e Determination Of Refractive State Determination Of Refractive State 29676 ERIKA THOMASON Ophthalmological New Patient Start Comprehensive Care Ophthalmological New Patient Start Comprehensive Care 52652 ERIKA THOMASON Case Management, each 15 minutes MIKE MCALLISTER Coordinated care fee, maintenance rate MIKE MCALLISTER Influenza Split Virus Vaccine IM Preserv Free 0.5mL Dosage Quadrivalent Influenza Split Virus Vaccine IM Preserv Free 0.5mL Dosage Quadrivalent 27460 ROCIO HUITRON Influenza Seasonal, injectable quadrivalent - preservative free; Series #: 1; .5 mL; IM; Left Arm; Mfg: [employer]; Lot: [id number]; VIS given (Luis E: 10/12/2014). [facility] Immunization Administration By Injection, One Vaccine Immunization Administration By Injection, One Vaccine 81984 ROCIO HUITRON [facility] Immunization Administration By Injection, Each Additional Vaccine Immunization Administration By Injection, Each Additional Vaccine 86845 ROCIO HUITRON Tdap Vaccine Tdap Vaccine 94613 ROCIO HUITRON Tdap; Series #: 1; .5 mL; IM; Right Arm; Mfg: [employer]; Lot: [id number]; VIS given (Luis E: 05/01/14). [facility] Pneumococcal Conjugate Vaccine, 13-Valent, IM Use Pneumococcal Conjugate Vaccine, 13-Valent, IM Use 40761 018 ROCIO HUITRON Pneumococcal conjugate PCV 13; Series #: 1; .5 mL; IM; Right Arm; Mfg: Other; Lot: [id number]; VIS given (Luis E: 01/10/15). [facility] Vaccines Viral Measles, Mumps, Rubella, Varicella (Active) Vaccines Viral Measles, Mumps, Rubella, Varicella (Active) 33850 018 ROCIO HUITRON MMRV; Series #: 1; .5 mL; SC; Left Arm; Mfg: [employer]ck; Lot: [id number]; VIS given (Luis E: 07/26/09). [facility] Psychiatric Diagnostic Evaluation Initial Psychiatric Diagnostic Evaluation Initial [id number] MIKE MCALLISTER [facility] Non-Physician Phone Call To Patient/Provider Brief (5-10min) Non-Physician Phone Call To Patient/Provider Brief (5-10min) [id number] WILLIAM DELGADO [facility] Echocardiogram Transthoracic 2-D During Stre Test Echocardiogram Transthoracic 2-D During Stress Test 64095 014 TAYLOR JONES [facility] Influenza Split Virus Vaccine 0.5mL Dosage Intramuscular 013 DANAY VARGHESE [facility] Immunization Administration By Injection, One Vaccine Immunization Administration By Injection, One Vaccine 91974 013 DANAY VARGHESE [facility] Immunization Administration By Injection, Each Additional Vaccine Immunization Administration By Injection, Each Additional Vaccine 44930 013 DANAY VARGHESE [facility] Vaccines Viral Yellow Fever Vaccines Viral Yellow Fever 42596 013 DANAY VARGHESE Yellow Fever; Series #: 1; .5 mL; SC; Left Arm; Mfg: Sanof[employer] P[employer]; Lot: [id number]; VIS given (Luis E: 06/04/2010). [facility] Typhoid Vaccine Vi Capsular Polysaccharide, For Intramus Use Typhoid Vaccine Vi Capsular Polysaccharide, For Intramus Use 13524 013 DANAY VARGHESE Typhoid, ViCPs; Series #: 1; .5 mL; IM; Left Arm; Mfg: Sanofi Paste[employer]; Lot: [id number]; VIS given (Luis E: 08/04/11). [facility] Hepatitis A And Hepatitis B (Intramuscular Use) Adult Dosage Hepatitis A And Hepatitis B (Intramuscular Use) Adult Dosage 85269 013 DANAY VARGHESE Hep A - Hep B (Twinrix); Series #: 1; 1.0 mL; IM; Right Arm; Mfg: [employer]; Lot: [id number]; VIS given (Luis E: 12/30/10; 04/19/11). [facility] All pota ium hydroxide (patrick) preparations 013 MABEL BECERRA Screening papanicolaou smear; obtaining, preparing and conveyance of cervical or vaginal smear to laboratory 013 MABEL BECERRA Wet betito, including preparations of vaginal, cervical or skin specimens 013 MABEL BECERRA [facility] Physician Supervised Specimen Handling / Transfer: Office To Lab Physician Supervised Specimen Handling / Transfer: Office To Lab [id number] 013 MABEL BECERRA [facility] Vaccine SARS-CoV-2 mRNA-LNP Kiko Protein Preservative Free 30mcg/0.3mL Diluent Reconstituted IM Vaccine SARS-CoV-2 mRNA-LNP Kiko Protein Preservative Free 30mcg/0.3mL [place] [address] TAMARA SPARKS COVID-19 Wattbot; Series #: 1; 0.3 mL; IM; Left Arm; Mfg: [employer]; Lot: [id number]; VIS given (Luis E: 06/12/2020). [facility] Vacc SARS-CoV-2 mRNA-LNP Kiko Protein Preservative Free 30mcg/0.3mL Diluent Reconstituted IM First Dose Vacc SARS-CoV-2 mRNA-LNP Kiko Protein Preservative Free 30mcg/0.3mL Diluent Reconstituted IM First Dose 0001A TAMARA SPARKS [facility] Vaccine SARS-CoV-2 mRNA-LNP Kiko Protein Preservative Free 30mcg/0.3mL Diluent Reconstituted IM Vaccine SARS-CoV-2 mRNA-LNP Kiko Protein Preservative Free 30mcg/0.3mL [place] [address] [address] HERNÁNDEZ COVID-19 Wattbot; Series #: 2; 0.3 mL; IM; Left Arm; Mfg: [employer]; Lot: [id number]; VIS given (Luis E: 02/06/2020). [facility] Vacc SARS-CoV-2 mRNA-LNP Kiko Protein Preservative Free 30mcg/0.3mL Diluent Reconstituted IM Second Dose Vacc SARS-CoV-2 mRNA-LNP Kiko Protein Preservative Free 30mcg/0.3mL Diluent Reconstituted IM Second Dose 0002A RD HERNÁNDEZ [facility] OTHER BILATERAL ENDOSCOPIC DESTRUCTION OR OCCLUSION OF FALLOPIAN TUBES 995 [facility] LAPAROSCOPY 995 [facility] CULDOCENTESIS 995 [facility] DETERMINATION OF REFRACTIVE STATE [facility] CASE MANAGEMENT, EACH 15 MINUTES [facility] IMMUNIZATION ADMINISTRATION (INCLUDES PERCUTANEOUS, INTRADERMAL, SUBCUTANEOUS, OR INTRAMUSCULAR INJECTIONS); EACH ADDITIONAL VACCINE (SINGLE OR COMBINATION VACCINE/TOXOID) [facility] PSYCHIATRIC DIAGNOSTIC EVALUATION 017 [facility] IMMUNIZATION ADM,INTRAMUSCULAR INJ,SEVERE AC RESPIRATORY SYNDROME CORONAVIR 2 (SARSCOV-2) (CORONAVIR DIS [COVID-19]) VACC,MRNALNP,SPIKE PROT,PRESRV FREE,30 MCG/0.3ML DOS,DILUENT RECONSTITUT;2ND DOSE 021 [facility] IMMUNIZATION ADM,INTRAMUSCULAR INJ,SEVERE AC RESPIRATORY SYNDROME CORONAVIR 2 (SARSCOV-2) (CORONAVIR DIS [COVID-19]) VACC,MRNALNP,SPIKE PROT,PRESRV FREE,30 MCG/0.3ML DOS,DILUENT RECONSTITUT;1ST DOSE [facility] TELE ASSESS & MGT SRV PROV QUAL NONPHYS HLTH CARE PRO TO EST PAT,PARENT,GUARD NOT ORIG REL ASSESS & MGT SRV PROV W/IN PREV 7 DAYS NOR LEAD ASSESS & MGT SRV/PX W/IN NXT 24 HR/SOON APT;5-10 MIN MED DIS 015 [facility] ECG,TRANSTHOR,RT,IMG DOC (2D),INC M-MODE REC,WHEN PERFORM,DUR REST&CV STRES TEST USE TREADMILL,BICYCLE EXERC &/PHARMACOLOGICALLY IND STRES,INT&REP;INC PERF,CONT ECG MON,W SUPERVIS,A PHYS/OTH QUAL HCP [facility] ELECTROCARDIOGRAM, ROUTINE ECG WITH AT LEAST 12 LEADS; WITH INTERPRETATION AND REPORT [facility] HEPATITIS A AND HEPATITIS B VACCINE (HEPA-HEPB), ADULT DOSAGE, FOR INTRAMUSCULAR USE 013 [facility] ALL POTASSIUM HYDROXIDE (PATRICK) PREPARATIONS 013 [facility] Social History Combined list of available smoking, tobacco, and other social history from Department of Defense and Veterans Affairs facilities. Social History Type Response Date Comment [facility] e This section is an empty social history section. [facility]D
[2024-03-29 08:07] VITALS: BP 108/62; PULSE 68; O2SAT 95; BMI 34.6
--- NOTE | 2024-03-29 08:07 | A.OFFVIS_ITS ---
Vital Signs 03/29/24 08:07 Height 5 ft 7 in Weight 220 lb 14.451 oz BMI 34.6 BP 108/62 Blood Pressure Location Rt brachial Position Sitting Pulse 68 Pulse Source Pulse Oximeter Pulse Oximetry (%) 95 Oxygen Delivery Method Room Air Intake Visit Reasons: Colonoscopy Screening Intake Note: NEW PATIENT Reason; Symptomatic screening. Prior hx of colo/egd? N Concerns/Questions? RUQ pain. GERD. Pt still taking famotidine daily but finds themselves more dependent on it than previously. Allergies No Known Allergies Allergy (Verified 03/29/24 08:08) HPI HPI Colonoscopy Screening: Details: 54 year old? female here today for pre colonoscopy screening.? Patient was sent to us by her PCP.? This is her first colonoscopy screening.? Patient reports acid reflux, well controlled do it famotidine. Patient has been taking for over 2 years. Patient reports that if she forgets it she will have acid reflux.? Denies any personal or family history of gastrointestinal disease, colon polyps, or CRC.? Denies history of difficulty with sedation or anesthesia in the past.? Patient reports snoring during the night was told that she stops breathing and will be going for sleep study the next month.? Denies any history of cardiac, renal, pulmonary, or hepatic disease.?? No history of infectious? diseases like hepatitis A, B, C, HIV or tuberculosis.? Patient is not on any anticoagulation [facility] Medical History Depression with anxiety GERD (gastroesophageal reflux disease) Multiple sclerosis Surgical History H/O tubal ligation Hx of discectomy H/O spinal fusion Family History Daughter Mental health disorder Social History Household Members: None Housing: House Are you a primary health care coach to a significant other at home: No Do you presently have visiting nurse or other home services: No Alcohol intake: current Alcohol intake frequency: holidays/special occasions only Alcohol type: wine Patient Tobacco Use Status: Former Tobacco user e-Cigarette/Vaping Use: Never Used service: Yes Current occupational status: employed 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 [employer] Cognitive needs: No Hearing needs: Yes (wears hearing aids for tinnitis) Vision needs: Yes (Patient wears glasses.) Review of Systems Const Denies weight gain and Denies weight loss ENT Reports no additional complaints, Denies dysphagia and Denies odynophagia Card Reports no additional complaints Resp Reports no additional complaints GI Denies abdominal pain, Denies belching, Denies melena, Denies bloating, Denies change in bowel habits, Denies dysphagia, Denies excessive flatus, Denies dyspepsia, Reports heartburn (Occasional), Denies diarrhea, Denies loose stools, Denies nausea, Denies odynophagia and Denies vomiting Musc Reports no additional complaints Neuro Reports no additional complaints Psych Reports no additional complaints Endo Reports no additional complaints Physical Exam Vital Signs: Last Vital Signs Pulse 68 03/29/24 08:07 BP 108/62 03/29/24 08:07 Pulse Ox 95 03/29/24 08:07 Oxygen Delivery Method Room Air 03/29/24 08:07 BMI result Body Mass Index 34.6 Const General: healthy appearing and no acute distress Nutritional Appearance: obese Orientation/consciousness: patient oriented x3 Resp Effort & Inspection: normal respiratory effort, able to speak in complete sentences, no tracheal deviation and symmetric chest movement Auscultation: clear to auscultation bilaterally Cardio Rate: regular rate GI Inspection: Yes normal to inspection, No distended and Yes obesity Palpation (GI): Soft to palpation, not firm, nontender and No hepatosplenomegaly present Auscultation: normal bowel sounds General: Yes no CVA tenderness Back/Spine/Pelvis Back: no CVA tenderness Skin General skin exam: elasticity normal, turgor normal and dry skin Neuro General: patient oriented x3 Psych Appearance: grossly normal Mental Status: mental status grossly normal Assessment & Plan Assessment & Plan (1) Screening for colon cancer: Code(s): Z12.11 - Encounter for screening for malignant neoplasm of colon Category: Medical (2) GERD (gastroesophageal reflux disease): Code(s): K21.9 - Gastro-esophageal reflux disease without esophagitis Category: Medical Qualifiers: Esophagitis presence: esophagitis presence not specified Qualified Code(s): K21.9 - Gastro-esophageal reflux disease without esophagitis Plan Patient denies any cardiac or respiratory symptoms.? Denies any issues with anesthesia in the past.? Possible sleep apnea will be going for sleep study next month.? No history infectious diseases in the past or present.? Not on any anticoagulation therapy.? No family or personal history of colon cancer or polyps.? Patient denies melena, hematochezia, unintentional weight loss or ribbon like stools.? Patient reports acid reflux for over 2 years. Currently she is on famotidine 40 mg. Patient does experience occasional acid reflux even when she is taking the medication. Will send for upper endoscopy to rule out gastritis, esophagitis, Barretts, gastric or peptic ulcers, H pylori. Discussed at length the pre-procedure,? prep, diet & medications as well as what to expect prior, during and after the procedure.?? Stressed the importance of good bowel prep.? Recommended the use of Vaseline or Calmoseptine OTC & baby wipes with bowel movements to promote comfort.? ?Patient verbalizes understanding and agrees to plan of care.? She was given the opportunity to ask questions and all questions answered.? We will see her after the procedure.? Medications: New bisacodyl (Dulcolax (bisacodyl)) take 4 tabs at noon the day before your colonoscopy 20 mg (4 x 5 mg) PO ONCE 1 day 4 tabs 0RF Z12.11 - Encounter for screening for malignant neoplasm of colon polyethylene glycol 3350 (Miralax) As directed by gastroenterology department at [facility] 238 grams PO ONCE 238 grams 0RF Z12.11 - Encounter for screening for malignant neoplasm of colon Coding Level of Care Code New Pt Level 3 (17199) Diagnoses Screening for colon cancer Z12.11 Gastroesophageal reflux disease, unspecified whether esophagitis present K21.9 Esophagitis presence: esophagitis presence not specified Time Spent (min) 40 Comment 30 minutes spent with patient and additional 10 minutes spent reviewing her records
== END 2024-03-29 11:01 | disposition home or self-care (01) ==
PROVIDERS: PCP Family Medicine; Visit Provider Nurse Practitioner Family
DX: K21.9 Gastro-esophageal reflux disease without esophagitis (principal); Z12.11 Encounter for screening for malignant neoplasm of colon
CPT/HCPCS: 99203

== ENCOUNTER → 2024-03-29 07:56 | Outpatient (BNVA) | payer OTHER, SELFPAY | PROVIDERS: PCP Family Medicine; Visit Provider Nurse Practitioner Family | DX: Z01.818 Encounter for other preprocedural examination (principal); K21.9 Gastro-esophageal reflux disease without esophagitis | CPT/HCPCS: 99202 ==

== ENCOUNTER 2024-04-03 07:28 | Outpatient (REF) | payer OTHER, SELFPAY ==
--- OUTSIDE RECORDS SUMMARY | 2024-04-03 07:31 | XMS_ITS | Continuity of Care Document ---
Author Name [facility] Organization 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 Unavailable Unavailable Problems Combined list of problems [...] Condition DoD Low back pain Active Condition [facility] Strain of muscle, fascia and tendon of other parts of biceps, right arm Active Condition [facility] depression with anxiety Active Condition [facility] anxiety Active Condition DoD visit for: screening exam Inactive Condition DoD atypical chest pain Inactive Condition D oD Administrative Evaluation Services Inactive Condition DoD visit for: examination Inactive Condition [facility] visit for: administrative purpose Inactive Condition [facility] Patient Counseling: Inactive Condition D oD visit [...] Provider Order Date Order Qty Source COMIRNATY [id number] (COVID vac 2022- (12 yr and up) XBB.1.5 (raxtozinam clement)/PF), 30 MCG/0.3, VIAL, INTRAMUSC, PFIZER US PHARM, .3 ml VIAL Active [id number] 2023 0.3 Pharmac y Data Transac tion Service Facilit y ESCITALOPRA M OXALATE (escitalopr am oxalate), 20 MG, TABLET, ORAL, [employer] 90 ea. BOTTLE Active [id number] 4 2023 90 Pharmac y Data Transac tion Service Facilit y ESCITALOPRA M OXALATE (escitalopr am oxalate), 20 MG, TABLET, ORAL, [employer], 100 ea. BOTTLE Active [id number] 2023 90 Pharmac y Data Transac tion Service Facilit y ESCITALOPRA M OXALATE (escitalopr am oxalate), 20 MG, TABLET, ORAL, [employer], 100 ea. BOTTLE Cancele d [id number] : 2023 0 Pharmac y Data Transac tion Service Facilit y FAMOTIDINE (FAMOTIDINE ), 40MG, TABLET, ORAL, [employer], 100 ea. BOTTLE Active [id number] 2023 90 Pharmac y Data Transac tion Service Facilit y FAMOTIDINE (FAMOTIDINE ), 40MG, TABLET, ORAL, [employer]ARM[employer], 100 ea. BOTTLE Cancele d [id number] : 2023 0 Pharmac y Data Transac tion Service Facilit y OSELTAMIVIR PHOSPHATE (oseltamivi r phosphate), 75 MG, CAPSULE, ORAL, AMNEAL PHARMACE, 10 ea. BLIST PACK Active [id number] 3 2023 10 Pharmac y Data Transac tion Service Facilit y SHINGRIX (varicella- zoster virus glycoprotei n E,rec/AS01B adjuvant/PF ), 50 MCG/0.5, KIT, INTRAMUSC, GLAXOSMITHK LINE, 1 ea. KIT Active [id number] 2023 1 Pharmac y Data Transac tion Service Facilit y Allergies, Adverse Reactions, Alerts Combined list of allergies from Department of Defense and Veterans Affairs facilities. It does not include entries that were removed or entered in error. Substance Category Reaction Severity Reaction type Status Date Reported Comments Source No Known Allergies Drug allergy (disorder) active 3 [facility] Immunizations Combined list of available immunizations from the Department of Defense and Veterans Affairs facilities. Immunization Series Date Given Administered By Site Reaction Lot Number CVX Code Drug Reconstructive Dentist Status Comments Source zoster recombinant 2023 () Not Given zoster recombina nt DoD COVID-19, mRNA, LNP-S, PF, 30 mcg/0.3 mL dose 2020 NZEOGU, [facility] (PFR) Not Given COVID-19, mRNA, LNP-S, PF, 30 mcg/0.3 mL dose DoD influenza, injectable, quadrivalent, preservative free 2020 NZEOGU, () Not Given influenza , injectabl e, quadrival ent, preservat sadiq free DoD SARS-COV-2 (COVID-19) vaccine, mRNA, spike protein, LNP, preservative free, 30 mcg/0.3mL dose [address] HERNÁNDEZ [id number] [employer] (PFR) complet ed SARS-COV- 2 (COVID-19 ) vaccine, mRNA, spike protein, LNP, preservat sadiq free, 30 mcg/0.3mL dose DoD SARS-COV-2 (COVID-19) vaccine, mRNA, spike protein, LNP, preservative free, 30 mcg/0.3mL dose 1 2020 TAMARA SPARKS [id number] 208 [employer] (PFR) complet ed SARS-COV- 2 (COVID-19 ) vaccine, mRNA, spike protein, LNP, preservat sadiq free, 30 mcg/0.3mL dose DoD influenza, injectable, quadrivalent, preservative free 2019 NZEOGU, () Not Given influenza , injectabl e, quadrival ent, preservat sadiq free DoD measles, mumps, rubella, and varicella virus vaccine 1 2017 ROCIO HUITRON [id number] 94 Merck (MSD) complet ed measles, mumps, rubella, and varicella virus vaccine DoD tetanus toxoid, reduced diphtheria toxoid, and acellular pertu is vaccine, adsorbed 1 2017 ROCIO HUITRON [id number] [place], [place] [address] (SKB) complet ed tetanus toxoid, reduced diphtheri a toxoid, and acellular pertussis vaccine, adsorbed DoD pneumococcal conjugate vaccine, 13 valent 1 2017 ROCIO HUITRON [id number] 133 Other (OTH) complet ed pneumococ rubina conjugate vaccine, 13 valent DoD Influenza, injectable, quadrivalent, preservative free 1 2017 ROCIO HUITRON N [id number] 150 [employer] (SKB) complet ed Influenza , injectabl e, quadrival ent, preservat sadiq free DoD Influenza, seasonal, injectable, preservative free 7 2014 Unknown, Provider [id number] 140 [employer]. (CS) complet ed Influenza , seasonal, injectabl e, preservat sadiq free DoD measles, mumps and rubella virus vaccine 1 2014 [id number] 03 Merck (MSD) complet ed measles, mumps and rubella virus vaccine DoD typhoid Vi capsular polysaccharid e vaccine 1 2014 B9514-4 101 Sanofi Pasteur (PMC) complet ed typhoid Vi capsular polysacch aride vaccine DoD Influenza, seasonal, injectable 1 2013 141 Transcribed (TRS) complet ed Influenza , seasonal, injectabl e DoD hepatitis B vaccine, adult dosage 3 2012 [id number] 43 [employer] (SKB) complet ed hepatitis B vaccine, adult dosage DoD Influenza, injectable, Madin Kila Canine Kidney, preservative free 1 2012 [id number] 153 Novartis SP[employer]. (NOV) complet ed Influenza , injectabl e, Madin Kila Canine Kidney, preservat sadiq free DoD influenza virus vaccine, whole virus 1 2012 DANAY VARGHESE [id number] 16 Sanofi Pasteur (PMC) complet ed influenza virus vaccine, whole virus DoD yellow fever vaccine 1 2012 DANAY VARGHESE [id number] 37 Sanofi Pasteur (PMC) complet ed yellow fever vaccine DoD typhoid vaccine, unspecified formulation 1 2012 91 Transcribed (TRS) complet ed typhoid vaccine, unspecifi ed formulati on DoD typhoid Vi capsular polysaccharid e vaccine 1 2012 DANAY VARGHESE [id number] 101 Sanofi Pasteur (PMC) complet ed typhoid Vi capsular polysacch aride vaccine DoD hepatitis A and hepatitis B vaccine 1 2012 DANAY VARGHESE [id number] 104 [employer] (SKB) complet ed hepatitis A and hepatitis B vaccine DoD seasonal influenza, intradermal, preservative free 0 2012 [id number] 1A 144 Sanofi Pasteur ([facility]) complet ed seasonal influenza , intraderm al, preservat sadiq free DoD influenza nasal, unspecified formulation 1 2012 151 Transcribed (TRS) complet ed influenza nasal, unspecifi ed formulati on DoD influenza virus vaccine, split virus (incl. purified surface antigen)-reti red CODE 0 2009 [id number] 15 [facility] ([facility]) complet ed influenza virus vaccine, split virus (incl. purified surface antigen)- retired CODE DoD hepatitis A and hepatitis B vaccine 1 2009 [id number] 104 [facility] (SKB) complet ed hepatitis A and hepatitis B vaccine DoD tuberculin skin test; purified protein derivative solution, intradermal 1 2006 Unknown, Provider [id number] 96 Sanofi Pasteur ([facility]) complet ed tuberculi n skin test; purified protein derivativ e solution, intraderm al DoD tetanus and diphtheria toxoids, adsorbed, preservative free, for adult use (2 Lf of tetanus toxoid and 2 Lf of diphtheria toxoid) 1 2006 [id number] 09 Sanofi Pasteur ([facility]) [...] red CODE 1 2006 [id number] 15 [facility] ([facility]) complet ed influenza virus vaccine, split [...] (incl. purified surface antigen)-reti red CODE 0 [id number] 15 Mariza (WAL) complet ed influenza virus [...] ADM Date DC Date Status Disposition Source [facility](P [place] T[facility]) OUTPATIENT [id number] ANNUAL PAP [id number] MABEL BECERRA 07/02 Released w/o Limitations [facility](MHP [place] T1) [facility](Immuniz ation [place]) OUTPATIENT [id number] Notes Entered by: HECTOR SMA 05 Jul 2012 0710 ------- ------- ------- ------- -- DANAY Serrato 07/05 Released w/o Limitations [facility](Imm unizati on [place]) [facility](Immuniz ation [place]) OUTPATIENT [id number] Notes Entered by: TIRSO CASTELAN P 08 Jul 2012 1317 ------- ------- ------- ------- -- Review VIRGIE CASTELAN 07/08 Released w/o Limitations [facility](Imm unizati on [place]) [facility] [place]) OUTPATIENT [id number] VALENTÍN Avila 07/15 Released w/o Limitations [facility](Dep loyment Health [place]) [facility](P [place] T1) TELE CONSULT [id number] Notes Entered by: Adiel GARRIDO 17 Jul 2012 1737 ------- ------- ------- ------- -- T-CON - Lab Result STERLING STROUD 07/17 [facility] [place] T1) [facility] [place] T1) TELE CONSULT [id number] Notes Entered by: Farooq MC 25 Jul 2012 1118 ------- ------- ------- ------- -- Mail [facility] [place] T[facility]) [facility] [place] T[facility]) TELE CONSULT [id number] Notes Entered by: PATRICIA ANDERS 01 Jan 2013 1718 ------- ------- ------- ------- -- labs? PATRICIA POWERS 01/01 [facility] [place] T1) [facility] [place] T[facility]) OUTPATIENT [id number] [place] MABEL Nunez 01/03 Released w/o Limitations [facility](MHP [place] T1) [facility](Emergen cy Medicine [facility]) OUTPATIENT [id number] TAYLA ANGELA 05/02 Released w/o Limitations [facility](Julia rgency Medicin e [place]) [facility](Cardiol ogy [place]) TELE CONSULT [id number] Notes Entered by: ENRIQUE LEUNG 05 May 2013 0856 ------- ------- ------- ------- -- DARCY instruc VEL Bowman 05/05 [facility](Car diology [place]) [facility](Cardiol ogy [place]) OUTPATIENT [id number] ECHO STRESS ANDREA AGUILAR 05/08 Released w/o Limitations [facility](Car diology [place]) [facility](M[facility] [place] T1) OUTPATIENT [id number] F/U CARDIOL OGY TEST MABEL BECERRA 06/02 Released w/o Limitations [facility](M[facility] [place] T1) [facility] [place] T[facility]) OUTPATIENT [id number] anxiety issues, possibl e medicat ion MABEL BECERRA 12/19 Released w/o Limitations [facility](MHP [place] T1) [facility] [place] T[facility]) OUTPATIENT [id number] follow up on anti anxiety med/ct ght loss MABEL BECERRA 03/22 Released w/o Limitations [facility](M[facility] [place] T1) [facility] [place] T1) TELE CONSULT [id number] Notes Entered by: Adiel GARRIDO 29 Mar 2014 1830 ------- ------- ------- ------- -- T-CON - Lab results STERLING STROUD 03/29 [facility](MHP [place] T1) [facility](Health Promotion [facility]) TELE CONSULT [id number] Notes Entered by: JESUS LE 17 May 2014 1247 ------- ------- ------- ------- -- Tel referra l assess EMIGDIO Amezcua 05/17 Other Not Elsewhere Classified [facility] [place] [facility](Hea lth Promoti on [facility]CP) [facility] [place] [facility] [place] T[facility]) TELE CONSULT [id number] JANA CRISTIANA Rebekah 05/17 [facility] [place] [place] [facility]) [facility] [place] [facility](Health Promotion NM[facility]) TELE CONSULT [id number] Notes Entered by: JESUS LE 22 May 2014 1201 ------- ------- ------- ------- -- Attempt ed to call for referra l follow up EMIGDIO SANABRIA 05/22 Other Not Elsewhere Classified [facility](Hea lth Promoti on NMCP) [facility] [place] [facility](Health Promotion NM[facility]) TELE CONSULT [id number] Notes Entered by: JESUS LE 23 May 2014 1332 ------- ------- ------- ------- -- Referra l follow up-requ ests EMIGDIO Panchal pe 05/23 Other Not Elsewhere Classified [facility] [place] [facility] [place] [facility] [place] [facility] OUTPATIENT [id number] F/U MABEL PHILLIPS 05/27 Released w/o Limitations [facility] [place] [place] [facility]) [facility] [place] [facility] [place] [facility]) TELE CONSULT [id number] Notes Entered by: WILLIAM DELGADO 11 Jun 2014 0944 ------- ------- ------- ------- -- Message from WILLIAM Brooks 06/11 Referred for Appointment [facility] [facility]) [facility] OUTPATIENT [id number] bilater al foot swellin adiel GIBSONHARRIETJAILYN S 06/18 Released with Work/Duty Limitations [facility] OUTPATIENT [id number] f/u per Dr. Garcia from bilat foot DENIA Gates 06/19 Released w/o Limitations [facility] [place] T1) TELE CONSULT [id number] Notes Entered by: ED NICOLE 03 Jul 2014 1146 ------- ------- ------- ------- -- Pt of Mrs. Becerra, out of depress ion medicat ion FAITH MORENO 07/03 Referred for Appointment [facility] [place] T1) [facility] [facility]) OUTPATIENT [id number] R FOOT INJURY X 2 DAYS CRISTIANA BATES 07/16 Released w/o Limitations [facility] [place] T1) [facility](Neurolo gy [place]) OUTPATIENT [id number] spec MARLEY CRESPO 08/02 Released w/o Limitations [facility](Mariya rology NMCP) [facility] [place] T1) OUTPATIENT [id number] F/U FOR LEFT SIDE FACE PAIN CRISTIANA BATES 08/12 Released w/o Limitations [facility] [place] T1) [facility](Orthope dic [place]) OUTPATIENT [id number] LIMB PAIN FOOT AND TOES TAYLOR AMBROCIO 08/28 Released w/o Limitations [facility](Ort hopedic [place]) [facility]) TELE CONSULT [id number] Notes Entered by: JENNY THOMAS 02 Oct 2014 1035 ------- ------- ------- ------- -- NETWORK RESULTS -ENT F/U-09/06- 01876 CRISTIANA BATES Rebekah 10/02 [facility] [place] P Referra l Clinic) [facility] h(M[facility] [place] T1) OUTPATIENT [id number] BONE GROWTH IN MOUTH X4MTHS MABEL BECERRA 10/03 Released w/o Limitations [facility](MHP [place] T1) [facility](Neurolo gy [place]) OUTPATIENT [id number] F/U MARLEY CRESPO 10/22 Released w/o Limitations [facility](Mariya rology NMCP) [facility] h(M[facility] [place] T1) OUTPATIENT [id number] F/U ANXIETY MABEL BECERRA 11/21 Released w/o Limitations [facility](MHP [place] T1) [facility](M[facility] [place] T1) OUTPATIENT [id number] PAP EXAM -1971 MABEL BECERRA 01/01 Released w/o Limitations [facility](M[facility] [place] T1) [facility](Neurolo gy [place]) TELE CONSULT [id number] Notes Entered by: IVET CHACKO 12 Mar 2015 1140 ------- ------- ------- ------- -- Pt states that she needs a consult for an mri ZAK, MARLEY 03/12 [facility](Mariya rology NMCP) [facility] [place] T1) TELE CONSULT [id number] Notes Entered by: PROMISE JESUS 22 May 2015 0823 ------- ------- ------- ------- -- Med refill MABEL BECERRA 05/21 [facility](M[facility] [place] T1) [facility](Neurolo gy [facility]) OUTPATIENT [id number] fol/up MARLEY CRESPO 06/17 Released w/o Limitations [facility](Mariya eisenberg [place]) [place] OUTPATIENT [id number] EST PCM- F/U Anxiety taking Wellbut rin EZEQUIEL HUTCHINSON 09/10 Released w/o Limitations [place] [facility] T[facility]) TELE CONSULT [id number] Notes Entered by: FAITH MORENO 15 Oct 2015 0945 ------- ------- ------- ------- -- Pop [facility] FAITH MORENO 10/14 Referred for Appointment [facility] [place] [facility] OUTPAT[place] [id number] cough and congest ion x 8 days OTCs not working . bilater al ear ache EZEQUIEL HUTCHINSON 01/12 Released w/o Limitations [place] [place] OUTPATIENT [id number] acid reflux symptom s EZEQUIEL HUTCHINSON 02/16 Released w/o Limitations [place] TELE CONSULT [id number] Notes Entered by: ANDREW KAHN 31 Mar 2016 1337 ------- ------- ------- ------- -- Refill bupropr ion JULITO KAHN 03/31 [place] [place] OUT[place] [id number] med refill EZEQUIEL HUTCHINSON 04/16 Released with Work/Duty Limitations [place] TELE CONSULT [id number] Notes Entered by: EZEQUIEL HUTCHINSON 05 May 2016 1317 ------- ------- ------- ------- -- lab JASPER, EZEQUIEL E 05/05 [place] [facility] [place] [facility] [place] [id number] MED REFILL JASPER, EZEQUIEL E 06/05 Released w/o Limitations [place] [facility] [place] [facility] [place] OUTPATIENT [id number] [facility] REGARDI NG MED JASPER, EZEQUIEL E 10/22 Released w/o Limitations [place] [facility] [place] OUT[place] [id number] L Forearm pain x 3 weeks JASPER, EZEQUIEL E 12/17 Released w/o Limitations [place] [facility] [place] [facility] [place] [id number] Med refill JASPER, EZEQUIEL E 02/22 Released w/o Limitations [place] [id number] Notes Entered by: LAURYN NUNN ON N 05 Apr 2017 1042 ------- ------- ------- ------- -- MMRV, TD, PCV13, FLU SHOT BELLO CAPPS 04/05 Released w/o Limitations [place] [facility] [place] [id number] Med Refill JASPER, EZEQUIEL E 05/07 Released w/o Limitations [place] [facility] [place] [facility] [place] [id number] well woman exam JASPER, EZEQUIEL E 06/14 Released w/o Limitations [place] [facility] [place] Case Managefr[place] TELE CONSULT [id number] Notes Entered by: Nestor MCALLISTER 27 Sep 2017 1230 ------- ------- ------- ------- -- CM follow up MIKE MCALLISTER 09/27 [place]) [place] [id number] medicat ion refill nexium EZEQUIEL HUTCHINSON 12/22 Released w/o Limitations [place] [place] OUT[place] [id number] ERIKA ALCAZAR 12/29 Released w/o Limitations [place] TELE CONSULT [id number] Notes Entered by: EZEQUIEL HUTCHINSON 21 Jan 2018 1247 ------- ------- ------- ------- -- labs- elevate d TSH EZEQUIEL HUTCHINSON 01/21 [place] [place] TELE CONSULT [id number] Notes Entered by: EZEQUIEL HUTCHINSON 26 Jan 2018 0912 ------- ------- ------- ------- -- pt in for thryoid check EZEQUIEL HUTCHINSON 01/26 [place] [id number] 2 referra l for neuro f/u EZEQUIEL HUTHCINSON 02/04 Released w/o Limitations [place] OUT[place] [id number] 3 bite by cat yesterd ay, cat not up to date on shots GAYLE, HY G 06/02 Released w/o Limitations [place] [facility] NM[facility]) TELE CONSULT [id number] Notes Entered by: CHARLENE LENTZ 10 Oct 2018 1534 ------- ------- ------- ------- -- Medicin e refill MIYA LENTZ 10/10 [facility]([employer] General NMCP) [place] TELE CONSULT [id number] Notes Entered by: Farooq VALDERRAMA 30 Jan 2020 1311 ------- ------- ------- ------- -- med request patient from out of town BILLY VALDERRAMA 01/29 [place] [facility] NMCP) OUTPATIENT [id number] - Pain In Right Shoulde IVIS Berry 06/03 Released w/o Limitations [facility](Spo rts Ortho NMCP) [facility](Immuniz ation [place]) OUTPATIENT [id number] Notes Entered by: RAJAN KIM 12 Jun 2020 0928 ------- ------- ------- ------- -- 1ST DOSE COVID VACCINE . TAMARA SPARKS 06/12 Released w/o Limitations [facility](Imm unizati on [place]) [facility](Immuniz ation [place]) OUTPATIENT [id number] 1 Notes Entered by: RAJAN KIM 04 Jul 2020 1257 ------- ------- ------- ------- -- 2ND DOSE COVID VACCINE CHRIS GLOVER 07/04 Released w/o Limitations [facility](Imm unizati on [place]) [facility] Outpatient Encounter [id number] Danika GOVEA 12/15 [facility] Outpatient Encounter [id number] 12/17 [facility] Outpatient Encounter [id number] 05/26 [facility] Outpatient Encounter [id number] 09/13 [facility] Outpatient Encounter [id number] 01/11 [facility] Procedures Combined list of: 1) Procedures from Department of Veterans Affairs facilities going back up to thelast 18 months, not all [place] non-surgical procedures are included; 2) All procedures from the Department of Defense facilities. Procedure Procedure Type Code Date Perfomer Comments Sourc e OTHER BILATERAL ENDOSCOPIC DESTRUCTION OR OCCLUSION OF FALLOPIAN TUBES 995 [facility] LAPAROSCOPY 995 [facility] CULDOCENTESIS 995 [facility] DETERMINATION OF REFRACTIVE STATE [facility] CASE MANAGEMENT, EACH 15 MINUTES 018 [facility] IMMUNIZATION ADMINISTRATION (INCLUDES PERCUTANEOUS, INTRADERMAL, SUBCUTANEOUS, OR INTRAMUSCULAR INJECTIONS); EACH ADDITIONAL VACCINE (SINGLE OR COMBINATION VACCINE/TOXOID) 018 [facility] PSYCHIATRIC DIAGNOSTIC EVALUATION 017 DoD IMMUNIZATION ADM,INTRAMUSCULAR INJ,SEVERE AC RESPIRATORY SYNDROME CORONAVIR 2 (SARSCOV-2) (CORONAVIR DIS [COVID-19]) VACC,MRNALNP,SPIKE PROT,PRESRV FREE,30 MCG/0.3ML DOS,DILUENT RECONSTITUT;2ND DOSE DoD IMMUNIZATION ADM,INTRAMUSCULAR INJ,SEVERE AC RESPIRATORY SYNDROME CORONAVIR 2 (SARSCOV-2) (CORONAVIR DIS [COVID-19]) VACC,MRNALNP,SPIKE PROT,PRESRV FREE,30 MCG/0.3ML DOS,DILUENT RECONSTITUT;1ST DOSE DoD TELE ASSESS & MGT SRV PROV QUAL NONPHYS HLTH CARE PRO TO EST PAT,PARENT,GUARD NOT ORIG REL ASSESS & MGT SRV PROV W/IN PREV 7 DAYS NOR LEAD ASSESS & MGT SRV/PX W/IN NXT 24 HR/SOON APT;5-10 MIN MED DIS 015 [facility] ECG,TRANSTHOR,RT,IMG DOC (2D),INC M-MODE REC,WHEN PERFORM,DUR REST&CV STRES TEST USE TREADMILL,BICYCLE EXERC &/PHARMACOLOGICALLY IND STRES,INT&REP;INC PERF,CONT ECG MON,W SUPERVIS,A PHYS/OTH QUAL HCP [facility] ELECTROCARDIOGRAM, ROUTINE ECG WITH AT LEAST 12 LEADS; WITH INTERPRETATION AND REPORT [facility] HEPATITIS A AND HEPATITIS B VACCINE (HEPA-HEPB), ADULT DOSAGE, FOR INTRAMUSCULAR USE [facility] ALL POTASSIUM HYDROXIDE (PATRICK) PREPARATIONS [facility] Determination Of Refractive State Determination Of Refractive State [address] ERIKA THOMASON Ophthalmological New Patient Start Comprehensive Care Ophthalmological New Patient Start Comprehensive Care 50659 ERIKA THOMASON Case Management, each 15 minutes MIKE MCALLISTER Coordinated care fee, maintenance rate MIKE MCALLISTER Influenza Split Virus Vaccine IM Preserv Free 0.5mL Dosage Quadrivalent Influenza Split Virus Vaccine IM Preserv Free 0.5mL Dosage Quadrivalent 90812 ROCIO HUITRON Influenza Seasonal, injectable quadrivalent - preservative free; Series #: 1; .5 mL; IM; Left Arm; g: [employer]; Lot: [id number]; VIS given (Luis E: 10/12/2014). [facility] Immunization Administration By Injection, One Vaccine Immunization Administration By Injection, One Vaccine 87341 ROCIO HUITRON [facility] Immunization Administration By Injection, Each Additional Vaccine Immunization Administration By Injection, Each Additional Vaccine 26423 ROCIO HUITRON [facility] Tdap Vaccine Tdap Vaccine 08638 ROCIO HUITRON Tdap; Series #: 1; .5 mL; IM; Right Arm; g: [employer]; Lot: [id number]; VIS given (Luis E: 05/01/14). [facility] Pneumococcal Conjugate Vaccine, 13-Valent, IM Use Pneumococcal Conjugate Vaccine, 13-Valent, IM Use 92598 ROCIO HUITRON Pneumococcal conjugate PCV 13; Series #: 1; .5 mL; IM; Right Arm; Mfg: Other; Lot: [id number]; VIS given (Luis E: 01/10/15). [facility] Vaccines Viral Measles, Mumps, Rubella, Varicella (Active) Vaccines Viral Measles, Mumps, Rubella, Varicella (Active) 24462 018 ROCIO HUITRON Zachery MMRV; Series #: 1; .5 mL; SC; Left Arm; Mfg: [employer]; Lot: [id number]; VIS given (Luis E: 07/26/09). [facility] Psychiatric Diagnostic Evaluation Initial Psychiatric Diagnostic Evaluation Initial [id number] MIKE MCALLISTER [facility] Non-Physician Phone Call To Patient/Provider Brief (5-10min) Non-Physician Phone Call To Patient/Provider Brief (5-10min) [id number] WILLIAM DELGADO [facility] Echocardiogram Transthoracic 2-D During Stre Test Echocardiogram Transthoracic 2-D During Stress Test [id number] TAYLOR JONES [facility] Influenza Split Virus Vaccine 0.5mL Dosage Intramuscular 013 DANAY VARGHESE [facility] Immunization Administration By Injection, One Vaccine Immunization Administration By Injection, One Vaccine 52077 013 DANAY VARGHESE [facility] Immunization Administration By Injection, Each Additional Vaccine Immunization Administration By Injection, Each Additional Vaccine 80647 013 DANAY VARGHESE [facility] Vaccines Viral Yellow Fever Vaccines Viral Yellow Fever 95499 013 DANAY VARGHESE Yellow Fever; Series #: 1; .5 mL; SC; Left Arm; Mfg: [employer]; Lot: [id number]; VIS given (Luis E: 06/04/2010). [facility] Typhoid Vaccine Vi Capsular Polysaccharide, For Intramus Use Typhoid Vaccine Vi Capsular Polysaccharide, For Intramus Use 19527 013 DANAY VARGHESE Typhoid, ViCPs; Series #: 1; .5 mL; IM; Left Arm; Mfg: [employer]; Lot: [id number]; VIS given (Luis E: 08/04/11). [facility] Hepatitis A And Hepatitis B (Intramuscular Use) Adult Dosage Hepatitis A And Hepatitis B (Intramuscular Use) Adult Dosage 71077 013 DANAY VARGHESE Hep A - Hep B (Twinrix); Series #: 1; 1.0 mL; IM; Right Arm; Mfg: [employer]; Lot: [id number]; VIS given (Luis E: 12/30/10; 04/19/11). [facility] All pota ium hydroxide (patrick) preparations MABEL BECERRA Screening papanicolaou smear; obtaining, preparing and conveyance of cervical or vaginal smear to laboratory MABEL BECERRA Wet betito, including preparations of vaginal, cervical or skin specimens MABEL BECERRA [facility] Physician Supervised Specimen Handling / Transfer: Office To Lab Physician Supervised Specimen Handling / Transfer: Office To Lab [id number] MABEL BECERRA [facility] Vaccine SARS-CoV-2 mRNA-LNP Kiko Protein Preservative Free 30mcg/0.3mL Diluent Reconstituted IM Vaccine SARS-CoV-2 mRNA-LNP Kiko Protein Preservative Free 30mcg/0.3[place] [address] TAMARA SPARKS COVID-19 [employer]; Series #: 1; 0.3 mL; IM; Left Arm; Mfg: [employer]; Lot: [id number]; VIS given (Luis E: 06/12/2020). [facility] Vacc SARS-CoV-2 mRNA-LNP Kiko Protein Preservative Free 30mcg/0.3mL Diluent Reconstituted IM First Dose Vacc SARS-CoV-2 mRNA-LNP Kiko Protein Preservative Free 30mcg/0.3mL Diluent Reconstituted IM First Dose 0001A TAMARA SPARKS [facility] Vaccine SARS-CoV-2 mRNA-LNP K[employer] Protein Preservative Free 30mcg/0.3mL Diluent Reconstituted IM Vaccine SARS-CoV-2 mRNA-LNP Kiko Protein Preservative Free 30mcg/0.3[place] [address] [address] HERNÁNDEZ COVID-19 [employer]; Series #: 2; 0.3 mL; IM; Left Arm; Mfg: [employer]; Lot: [id number]; VIS given (Luis E: 02/06/2020). 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 Social History Type Response Date Comment [facility] e This section is an empty social history section. DoD
--- OUTSIDE RECORDS SUMMARY | 2024-04-03 07:32 | XMS_ITS | Patient Health Record ---
Author Organization [facility] GABRIEL Wallace Address [address] [place] [phone] Support Name Relationship Address Phone ABHIJEET CHET Guarantor Unknown [phone] Allergies No Known Allergies Reason For Referral No Information Medications Medication SIG (Take, Route, Frequency, Duration) Notes Start Date End Date Status Albuterol Sulfate HFA 108 (90 Base) MCG/ACT 2 puffs every 4 hours as needed Inhalation every 4 hrs for 30 days 03/14/2022 Active Famotidine Active Citalopram Hydrobromide Active Problems Problem Type SNOMED Code ICD Code Onset Dates Problem Status W/U Status Risk Notes Problem Chronic rhinitis (02866962) Rhinitis, 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
[2024-04-03 10:01] LABS: Appearance Urine Clear; Color Urine Dark Yellow; Glucose Urine UA Negative (Negative); Leukocyte Esterase Urine Trace (Negative); Nitrite Urine Negative (Negative); UMIC TRIGGER UA YES; Urine Blood Negative (Negative); Urine Ketones Negative (Negative); Urine Protein Negative (Neg-Trace)
[2024-04-03 10:04] LABS: Bacteria Urine None Seen (None Seen); Hyaline Casts Urine 0-2 /LPF (0-2); RBC Urine 0-2 /HPF (0-2); Squamous Epithelial Cell Urine 0-2 /HPF (0-2); WBC Urine 0-5 /HPF (0-5)
[2024-04-03 10:08] LABS: MANUAL DIFF FLAG NO
[2024-04-03 10:16] LABS: Basophils Absolute Auto 0.1 X10*3/uL (0.0-0.2); Basophils Percent Auto 0.8 % (0-2); Eosinophils Absolute Auto 0.1 X10*3/uL (0.0-0.4); Eosinophils Percent Auto 1.4 % (0-4); Hematocrit 38.5 % (37.0-47.0); Hemoglobin 12.8 g/dl (12.0-16.0); Imm Gran Abs Auto 0.02 X10*3/uL (0.00-0.03); Imm Gran Pct Auto 0.3 % (0.0-0.4); Lymphocytes Absolute Auto 1.7 X10*3/uL (1.2-4.9); Lymphocytes Percent Auto 27.7 % (20-40); Mean Corpuscular HGB Conc 33.2 g/dl (31.0-35.0); Mean Corpuscular Hemoglobin 29.2 pg (27.0-33.0); Mean Corpuscular Volume 87.7 fL (80.0-98.0); Mean Platelet Volume 10.8 fL (9.4-12.3); Monocytes Absolute Auto 0.5 X10*3/uL (0.1-1.2); Monocytes Percent Auto 8.2 % (2-11); Neutrophils Absolute Auto 3.9 x10*3/uL (2.0-8.3); Neutrophils Percent Auto 61.6 % (45-73); Platelet Count 364 X10*3/uL (160-400); Red Blood Count 4.39 X10*6/uL (4.20-5.50); White Blood Count 6.3 X10*3/uL (4.8-10.8)
[2024-04-03 10:44] LABS: Creatinine Urine 43.98 mg/dL; Microalbumin Urine < 5.0 mg/L
[2024-04-03 11:11] LABS: Alanine Aminotransferase 20 U/L (0-31); Albumin Level 4.5 g/dL (3.5-5.0); Alkaline Phosphatase 60 U/L (39-117); Anion Gap 12 (12-20); Aspartate Amino Transferase 20 U/L (5-31); Bilirubin Total 0.4 mg/dL (0.0-1.0); Blood Urea Nitrogen 13 mg/dL (9-16); Calcium 9.8 mg/dL (8.4-10.2); Carbon Dioxide 24 mmol/L (22-29); Chloride 105 mmol/L (96-108); Cholesterol 190 mg/dL (<200); Estimated Glomerular Filt Rate > 60; Glucose Fasting 100 mg/dL (60-99); HDL Cholesterol 69 mg/dL (>40); LDL Cholesterol Calculated 105 mg/dL (<100); Potassium 4.4 mmol/L (3.3-5.1); Sodium 137 mmol/L (135-145); Total Protein 7.9 g/dL (6.5-8.0); Triglycerides 80 mg/dL (<150)
[2024-04-03 11:26] LABS: TSH reflex Free T4 3.16 uIU/mL (0.32-4.0); Vitamin D 25-OH Total 42.4 ng/mL (>30)
[2024-04-03 11:28] LABS: Folate 10.7 ng/mL (> or = 4.0); Vitamin B12 374 pg/mL (200-900)
== END 2024-04-03 07:29 | disposition home or self-care (01) ==
LOC: HO.HMGCLDS 07:28
PROVIDERS: PCP Family Medicine; Visit Provider Family Medicine
DX: Z00.00 Encounter for general adult medical examination without abnormal findings (principal); E53.8 Deficiency of other specified B group vitamins; E55.9 Vitamin D deficiency, unspecified; I10 Essential (primary) hypertension
CPT/HCPCS: 36415; 80053; 80061; 81001; 81003; 82043; 82306; 82570; 82607; 82746; 84443; 85025

== ENCOUNTER 2024-04-11 15:47 | Outpatient (AMB) | payer OTHER, SELFPAY ==
--- OUTSIDE RECORDS SUMMARY | 2024-04-11 15:51 | XMS_ITS | Continuity of Care Document ---
Author Name [facility] Organization [facility] Care Team Providers Care Nurse Gynecology Name Role Phone [facility] Unavailable Unavailable Problems Combined list of problems [...] Condition DoD Low back pain Active Condition [facility] Strain of muscle, fascia and tendon of other parts of biceps, right arm Active Condition [facility] depression with anxiety Active Condition [facility] anxiety Active Condition DoD visit for: screening exam Inactive Condition DoD atypical chest pain Inactive Condition D oD Administrative Evaluation Services Inactive Condition DoD visit for: examination Inactive Condition [facility] visit for: administrative purpose Inactive Condition [facility] Patient Counseling: Inactive Condition D oD visit for: services physical Inactive Condition DoD Need For Vaccination Against Influenza Inactive Condition DoD Need For Vaccination Hepatitis A And Hepatitis B Inactive Condition DoD Need For Vaccination Yellow Fever Inactive Condition DoD Need For Vaccination Typhoid Inactive Condition [facility] visit for: screening exam for malignant neoplasm cervix Inactive Condition [facility] routine gynecological exam with cervical pap smear Inactive Condition [facility] Medications Combined list of outpatient medications from Department of Defense and Veterans Affairs facilities.Medications provided include 1) outpatient medications from the last 15 months, and 2) patient-reported medications. Medication Details Route Status Patient Instructions Prescription Expires Prescription Number Last Dispense Date Ordering Provider Order Date Order Qty Source COMIRNATY [id number] (COVID vac 2022- (12 yr and up) XBB.1.5 (raxtozinam clement)/PF), 30 MCG/0.3, VIAL, INTRAMUSC, PFIZER US PHARM, .3 ml VIAL Active [id number] 2023 0.3 Pharmac y Data Transac tion Service Facilit y ESCITALOPRA M OXALATE (escitalopr am oxalate), 20 MG, TABLET, ORAL, [employer] 90 ea. BOTTLE Active [id number] 4 2023 90 Pharmac y Data Transac tion Service Facilit y ESCITALOPRA M OXALATE (escitalopr am oxalate), 20 MG, TABLET, ORAL, [employer], 100 ea. BOTTLE Active [id number] 4 2023 90 Pharmac y Data Transac tion Service Facilit y ESCITALOPRA M OXALATE (escitalopr am oxalate), 20 MG, TABLET, ORAL, [employer], 100 ea. BOTTLE Cancele d [id number] : 2023 0 Pharmac y Data Transac tion Service Facilit y FAMOTIDINE (FAMOTIDINE ), 40MG, TABLET, ORAL, [employer], 100 ea. BOTTLE Active [id number] 4 2023 90 Pharmac y Data Transac tion Service Facilit y FAMOTIDINE (FAMOTIDINE ), 40MG, TABLET, ORAL, [employer], 100 ea. BOTTLE Cancele d [id number] : 2023 0 Pharmac y Data Transac tion Service Facilit y OSELTAMIVIR PHOSPHATE (oseltamivi r phosphate), 75 MG, CAPSULE, ORAL, AMNEAL PHARMACE, 10 ea. BLIST PACK Active [id number] 3 2023 10 Pharmac y Data Transac tion Service Facilit y SHINGRIX (varicella- zoster virus glycoprotei n E,rec/AS01B adjuvant/PF ), 50 MCG/0.5, KIT, INTRAMUSC, GLAXOSMITHK LINE, 1 ea. KIT Active [id number] 4 2023 1 Pharmac y Data Transac tion Service Facilit y Allergies, Adverse Reactions, Alerts Combined list of allergies from Department of Defense and Veterans Affairs facilities. It does not include entries that were removed or entered in error. Substance Category Reaction Severity Reaction type Status Date Reported Comments Source No Known Allergies Drug allergy (disorder) active 3 [facility] Immunizations Combined list of available immunizations from the Department of Defense and Veterans Affairs facilities. Immunization Series Date Given Administered By Site Reaction Lot Number CVX Code Drug Division Order Technician Status Comments Source zoster recombinant 2023 () Not Given zoster recombina nt DoD COVID-19, mRNA, LNP-S, PF, 30 mcg/0.3 mL dose 2020 NZEOGU, [employer] OPS [facility] (PFR) Not Given COVID-19, mRNA, LNP-S, PF, 30 mcg/0.3 mL dose DoD influenza, injectable, quadrivalent, preservative free 2020 NZEOGU, () Not Given influenza , injectabl e, quadrival ent, preservat sadiq free DoD SARS-COV-2 (COVID-19) vaccine, mRNA, spike protein, LNP, preservative free, 30 mcg/0.3mL dose [address] HERNÁNDEZ [id number] [employer] (PFR) complet ed SARS-COV- 2 (COVID-19 ) vaccine, mRNA, spike protein, LNP, preservat sadiq free, 30 mcg/0.3mL dose DoD SARS-COV-2 (COVID-19) vaccine, mRNA, spike protein, LNP, preservative free, 30 mcg/0.3mL dose 1 2020 TAMARA SPARKS [id number] 208 [employer] (PFR) complet ed SARS-COV- 2 (COVID-19 ) vaccine, mRNA, spike protein, LNP, preservat sadiq free, 30 mcg/0.3mL dose DoD influenza, injectable, quadrivalent, preservative free 2019 NZEOGU, () Not Given influenza , injectabl e, quadrival ent, preservat sadiq free DoD measles, mumps, rubella, and varicella virus vaccine 1 2017 ROCIO HUITRON [id number] 94 Merck (MSD) complet ed measles, mumps, rubella, and varicella virus vaccine DoD tetanus toxoid, reduced diphtheria toxoid, and acellular pertu is vaccine, adsorbed 1 2017 ROCIO HUITRON [id number] [place] [address] (SKB) complet ed tetanus toxoid, reduced diphtheri a toxoid, and acellular pertussis vaccine, adsorbed DoD pneumococcal conjugate vaccine, 13 valent 1 2017 ROCIO HUITRON N [id number] Other (OTH) complet ed pneumococ rubina conjugate vaccine, 13 valent DoD Influenza, injectable, quadrivalent, preservative free 1 2017 ROCIO HUITRON N [id number] 150 [employer]line (SKB) complet ed Influenza , injectabl e, quadrival ent, preservat sadiq free DoD Influenza, seasonal, injectable, preservative free 7 2014 Unknown, Provider [id number] 140 [place], LIFEMODELER. (CSL) complet ed Influenza , seasonal, injectabl e, preservat sadiq free DoD measles, mumps and rubella virus vaccine 1 2014 [id number] 03 Merck (MSD) complet ed measles, mumps and rubella virus vaccine DoD typhoid Vi capsular polysaccharid e vaccine 1 2014 [id number] 101 Sanofi Pasteur (PMC) complet ed typhoid Vi capsular polysacch aride vaccine DoD Influenza, seasonal, injectable 1 2013 141 Transcribed (TRS) complet ed Influenza , seasonal, injectabl e DoD hepatitis B vaccine, adult dosage 3 2012 [id number] 43 [employer] (SKB) complet ed hepatitis B vaccine, adult dosage DoD Influenza, injectable, Madin Tori Canine Kidney, preservative free 1 2012 [id number] [employer]. (NOV) complet ed Influenza , injectabl e, Madin Tori Canine Kidney, preservat sadiq free DoD influenza virus vaccine, whole virus 1 2012 DANAY VARGHESE [id number] 1A 16 Sanofi Pasteur (PMC) complet ed influenza virus vaccine, whole virus DoD yellow fever vaccine 1 2012 DANAY VARGHESE [id number] Sanofi Pasteur (PMC) complet ed yellow fever vaccine DoD typhoid vaccine, unspecified formulation 1 2012 91 Transcribed (TRS) complet ed typhoid vaccine, unspecifi ed formulati on DoD typhoid Vi capsular polysaccharid e vaccine 1 2012 DANAY VARGHESE B8977-3 101 Sanofi Pasteur (PMC) complet ed typhoid Vi capsular polysacch aride vaccine DoD hepatitis A and hepatitis B vaccine 1 2012 DANAY VARGHESE [id number] 104 Smithine (SKB) complet ed hepatitis A and hepatitis B vaccine DoD seasonal influenza, intradermal, preservative free 0 2012 [id number] 1A 144 Sanofi Pasteur ([facility]) complet ed seasonal influenza , intraderm al, preservat sadiq free DoD influenza nasal, unspecified formulation 1 2012 151 Transcribed (TRS) complet ed influenza nasal, unspecifi ed formulati on DoD influenza virus vaccine, split virus (incl. purified surface antigen)-reti red CODE 0 2009 [id number] 15 [place]. ([facility]) complet ed influenza virus vaccine, split virus (incl. purified surface antigen)- retired CODE DoD hepatitis A and hepatitis B vaccine 1 2009 [id number] 104 [facility] ([facility]) complet ed hepatitis A and hepatitis B vaccine DoD tuberculin skin test; purified protein derivative solution, intradermal 1 2006 Unknown, Provider [id number] 96 Sanofi Pasteur ([facility]) complet ed tuberculi n skin test; purified protein derivativ e solution, intraderm al DoD tetanus and diphtheria toxoids, adsorbed, preservative free, for adult use (2 Lf of tetanus toxoid and 2 Lf of diphtheria toxoid) 1 2006 [id number] 09 Sanofi Pasteur ([facility]) complet ed tetanus and diphtheri a toxoids, adsorbed, preservat sadiq free, for adult use (2 Lf of tetanus toxoid and 2 Lf of diphtheri a toxoid) DoD poliovirus vaccine, inactivated 1 2006 [id number] 10 Sanofi Pasteur ([facility]) complet ed polioviru s vaccine, inactivat ed DoD influenza virus vaccine, split virus (incl. purified surface antigen)-reti red CODE 1 2006 [id number] 15 [facility] ([facility]) complet ed influenza virus vaccine, split virus [...] DoD human immunodeficie ncy virus vaccine 0 03/05/ 1999 UNKNOWN 61 Unknown (UNK) comple t ed human immunodef iciency virus vaccine DoD influenza virus vaccine, split virus (incl. purified surface antigen)-reti red CODE 0 [id number] 15 Mariza (WAL) complet ed influenza virus [...] ADM Date DC Date Status Disposition Source [facility] [place] T1) OUTPATIENT [id number] ANNUAL PAP [id number] MABEL BECERRA 07/02 Released w/o Limitations [facility](MHP [place] T1) [facility](Immuniz ation [place]) OUTPATIENT [id number] Notes Entered by: HECTOR SAM 05 Jul 2012 0710 ------- ------- ------- ------- -- DANAY Serrato 07/05 Released w/o Limitations [facility](Imm unizati on [place]) [facility](Immuniz ation [place]) OUTPATIENT [id number] Notes Entered by: TIRSO CASTELAN P 08 Jul 2012 1317 ------- ------- ------- ------- -- Review VIRGIE CASTELAN 07/08 Released w/o Limitations [facility](Imm unizati on [place]) [facility] ent Health [place]) OUTPATIENT [id number] VALENTÍN Avila 07/15 Released w/o Limitations [facility](Dep loyment Health [place]) [facility] [place] T1) TELE CONSULT [id number] Notes Entered by: Adiel GARRIDO 17 Jul 2012 1737 ------- ------- ------- ------- -- T-CON - Lab Result STERLING STROUD 07/17 [facility] [place] T1) [facility] [place] T1) TELE CONSULT [id number] Notes Entered by: Farooq MC 25 Jul 2012 1118 ------- ------- ------- ------- -- [facility] [place] T[facility]) [facility] [place] T1) TELE CONSULT [id number] Notes Entered by: PATRICIA ANDERS 01 Jan 2013 1718 ------- ------- ------- ------- -- labs? PATRICIA POWERS 01/01 [facility] [place] T1) [facility] [place] T1) OUTPATIENT [id number] [facility] [place] [facility] MABLE Nunez 01/03 Released w/o Limitations [facility](MHP [place] T1) [facility](Emergen cy Medicine [facility]) OUTPATIENT [id number] TAYLA ANGELA 05/02 Released w/o Limitations [facility](Julia rgency Medicin e [facility]) [facility](Cardiol ogy [facility]) TELE CONSULT [id number] Notes Entered by: ENRIQUE LEUNG 05 May 2013 0856 ------- ------- ------- ------- -- DARCY instruc tiVEL Wolf 05/05 [facility](Car diology [facility]) [facility](Cardiol ogy [facility]) OUTPATIENT [id number] ECHO STRESS ANDREA AGUILAR 05/08 Released w/o Limitations [facility](Car diology [facility]) [facility](MHP [place] T1) OUTPATIENT [id number] F/U CARDIOL OGY TEST MABEL BECERRA 06/02 Released w/o Limitations [facility](MHP [place] T1) [facility](MHP [place] T1) OUTPATIENT [id number] anxiety issues, possibl e medicat ion MABEL BECERRA 12/19 Released w/o Limitations [facility](MHP [place] T1) [facility](MHP [place] T1) OUTPATIENT [id number] follow up on anti anxiety med/ct ght loss MABEL BECERRA 03/22 Released w/o Limitations [facility](MHP [place] T1) [facility](MHP [place] T1) TELE CONSULT [id number] Notes Entered by: Adiel GARRIDO 29 Mar 2014 1830 ------- ------- ------- ------- -- T-CON - Lab results STERLING STROUD 03/29 [facility](MHP [place] T1) [facility] [place] [facility](Health Promotion NMCP) TELE CONSULT [id number] Notes Entered by: JESUS LE 17 May 2014 1247 ------- ------- ------- ------- -- Tel referra l assessm ent EMIGDIO SANABRIA 05/17 Other Not Elsewhere Classified [facility] [place]Hea [facility]th Promoti [facility] [place]) [facility] [place]([facility] [place] [facility]) TELE CONSULT [id number] JANACRISTIANA IVERSON Rebekah 05/17 [facility] [place]([facility] [place] [facility]) [facility] [place] [facility](Health Promotion NMCP) TELE CONSULT [id number] Notes Entered by: JESUS LE 22 May 2014 1201 ------- ------- ------- ------- -- Attempt ed to call for referra l follow up EMIGDIO SANABRIA 05/22 Other Not Elsewhere Classified [facility] [place]Hea [place]th Promoti on [place]) [facility] [place](Health Promotion [facility]) TELE CONSULT [id number] Notes Entered by: JESUS LE 23 May 2014 1332 ------- ------- ------- ------- -- Referra l follow up-requ ests EMIGDIO Panchal pe 05/23 Other Not Elsewhere Classified [facility] [place]Hea [facility]th Promoti on [place]) [facility] [place]([facility] [place] [facility] OUTPATIENT [id number] F/U MABEL PHILLIPS 05/27 Released w/o Limitations [facility] [place] [place] [facility] [facility] [place] [facility] [place] [facility]) TELE CONSULT [id number] Notes Entered by: WILLIAM DELGADO 11 Jun 2014 0944 ------- ------- ------- ------- -- Message from WILLIAM Brooks 06/11 Referred for Appointment [facility] T1) [facility]) OUTPATIENT [id number] bilater al foot swellin adiel JULIANJAILYN ZHU Zara 06/18 Released with Work/Duty Limitations [facility]) OUTPATIENT [id number] f/u per Dr. Garcia from bilat foot DENIA Gates 06/19 Released w/o Limitations [facility]) [facility] [place] T1) TELE CONSULT [id number] Notes Entered by: ED NICOLE 03 Jul 2014 1146 ------- ------- ------- ------- -- Pt of Mrs. Becerra, out of depress ion medicat ion FAITH MORENO 07/03 Referred for Appointment [facility] [place] T1) [facility] T1) OUTPATIENT [id number] R FOOT INJURY X 2 DAYS CRISTIANA BATES 07/16 Released w/o Limitations [facility] [place] T1) [facility](Neurolo gy [facility]CP) OUTPATIENT [id number] spec MARLEY CRESPO 08/02 Released w/o Limitations [facility](Mariya rology NMCP) [facility] [place] T1) OUTPATIENT [id number] F/U FOR LEFT SIDE FACE PAIN CRISTIANA BATES 08/12 Released w/o Limitations [facility] [place] T1) [facility](Orthope dic NMCP) OUTPATIENT [id number] LIMB PAIN FOOT AND TOES TAYLOR AMBROCIO 08/28 Released w/o Limitations [facility](Ort hopedic [facility]) [facility]) TELE CONSULT [id number] Notes Entered by: JENNY THOMAS 02 Oct 2014 1035 ------- ------- ------- ------- -- NETWORK RESULTS -ENT F/U-09/06- 43597 CRISTIANA BATES Rebekah 10/02 [facility] P Referra l Clinic) [facility] [place]([facility] [place] [facility]) OUTPATIENT [id number] BONE GROWTH IN MOUTH [id number] MABEL BECERRA 10/03 Released w/o Limitations [facility] [place] T1) [facility]Neurolo [facility] OUTPATIENT [id number] F/U MARLEY CRESPO 10/22 Released w/o Limitations [facility](Mariya rology NMCP) [facility] h(MHP [place] T1) OUTPATIENT [id number] F/U ANXIETY MABEL BECERRA 11/21 Released w/o Limitations [facility](M[facility] [place] T1) [facility] h(MHP [place] T1) OUTPATIENT [id number] PAP EXAM -1971 MABEL BEECRRA 01/01 Released w/o Limitations [facility](M[facility] [place] T1) [facility](Neurolo gy [facility]CP) TELE CONSULT [id number] Notes Entered by: IVET CHACKO 12 Mar 2015 1140 ------- ------- ------- ------- -- Pt states that she needs a consult for an mri ZAK, MARLEY 03/12 [facility](Mariya rology NMCP) [facility] [place] T1) TELE CONSULT [id number] Notes Entered by: PROMISE JESUS 22 May 2015 0823 ------- ------- ------- ------- -- Med refill MABEL BECERRA 05/21 [facility](M[facility] [place] T1) [facility](Neurolo gy [facility]CP) OUTPATIENT [id number] fol/yousif CARTYZAK, MARLEY 06/17 Released w/o Limitations [facility](Mariya hardeepy NMCP) [place] OUTPATIENT [id number] EST PCM- F/U Anxiety taking Wellbut rin EZEQUIEL HUTCHINSON 09/10 Released w/o Limitations [place] Med [facility]) [facility] [place] T1) TELE CONSULT [id number] Notes Entered by: FAITH MORENO 15 Oct 2015 0945 ------- ------- ------- ------- -- Pop [facility] FAITH MORENO 10/14 Referred for Appointment [facility] T1) [place] OUTPATIENT [id number] cough and congest ion x 8 days OTCs not working . bilater al ear ache EZEQUIEL HUTCHINSON 01/12 Released w/o Limitations [place] [facility] OUTPATIENT [id number] acid reflux symptom s EZEQUIEL HUTCHINSON 02/16 Released w/o Limitations [place] [facility] [place] TELE CONSULT [id number] Notes Entered by: ANDREW KAHN 31 Mar 2016 1337 ------- ------- ------- ------- -- Refill bupropr ion JULITO KAHN 03/31 [place] [facility] [place] [facility]) [place] [id number] med refill EZEQUIEL HUTCHINSON 04/16 Released with Work/Duty Limitations [place] [facility] [facility] [place] TELE CONSULT [id number] Notes Entered by: EZEQUIEL HUTCHINSON 05 May 2016 1317 ------- ------- ------- ------- -- lab EZEQUIEL HUTCHINSON 05/05 [place] OUT[place]IENT [id number] MED REFILL EZEQUIEL HUTCHINSON E 06/05 Released w/o Limitations [place] OUT[place]IENT [id number] [facility] EZEQUIEL HUTCHINSON 10/22 Released w/o Limitations [place] OUT[place]IENT [id number] L Forearm pain x 3 weeks EZEQUIEL HUTCHINSON 12/17 Released w/o Limitations [place] [employer] [facility] [place] OUTPATIENT [id number] Med refill JASPER EZEQUIEL E 02/22 Released w/o Limitations [place] [id number] Notes Entered by: LAURYN NUNN ON N 05 Apr 2017 1042 ------- ------- ------- ------- -- MMRV, TD, PCV13, FLU SHOT BELLO CAPPS 04/05 Released w/o Limitations [place] [facility] [place] OUTPATIENT [id number] Med Refill EZEQUIEL HUTCHINSON 05/07 Released w/o Limitations [place] [facility] [place] OUTPATIENT [id number] well woman exam EZEQUIEL HUTCHINSON 06/14 Released w/o Limitations [place] Case Manag[place] TELE CONSULT [id number] Notes Entered by: Nestor MCALLISTER 27 Sep 2017 1230 ------- ------- ------- ------- -- CM follow up MIKE MCALLISTER 09/27 [place] [place] [facility] [place] OUTPATIENT [id number] medicat ion refill nexium EZEQUIEL HUTCHINSON 12/22 Released w/o Limitations [place] [facility] [place] [place] OUTPATIENT [id number] ERIKA ALCAZAR 12/29 Released w/o Limitations [place] [facility] TELE CONSULT [id number] 7 Notes Entered by: EZEQUIEL HUTCHINSON 21 Jan 2018 1247 ------- ------- ------- ------- -- labs- elevate d TSH EZEQUIEL HUTCHINSON 01/21 [place] TELE CONSULT [id number] Notes Entered by: EZEQUIEL HUTCHINSON 26 Jan 2018 0912 ------- ------- ------- ------- -- pt in for thryoid check EZEQUIEL HUTCHINSON 01/26 [place] [id number] 2 referra l for neuro f/u EZEQUIEL HUTCHINSON 02/04 Released w/o Limitations [place] OUTPAT[place] [id number] 3 bite by cat yesterd ay, cat not up to date on shots GAYLE, HY G 06/02 Released w/o Limitations [place] [facility]) [facility](Human Resources Talent Manager General NMCP) TELE CONSULT [id number] 4 Notes Entered by: CHARLENE LENTZ 10 Oct 2018 1534 ------- ------- ------- ------- -- Medicin e valencia LENTZ MIYA LING 10/10 [facility](Human Resources Talent Manager General NMCP) [place] [facility] TELE CONSULT [id number] 7 Notes Entered by: Farooq VALDERRAMA 30 Jan 2020 1311 ------- ------- ------- ------- -- med request patient from out of town BILLY VALDERRAMA 01/29 [place] [facility] [facility]([employer] NMCP) OUTPATIENT [id number] - Pain In Right Shoulde IVIS Berry 06/03 Released w/o Limitations [facility](Spo rts Ortho NMCP) [facility](Immuniz ation [place]) OUTPATIENT [id number] 1 Notes Entered by: RAJAN KIM 12 Jun 2020 0928 ------- ------- ------- ------- -- 1ST DOSE COVID VACCINE . TAMARA SPARKS 06/12 Released w/o Limitations [facility](Imm unizati on [place]) [facility](Immuniz ation [place]) OUTPATIENT [id number] 1 Notes Entered by: RAJAN KIM 04 Jul 2020 1257 ------- ------- ------- ------- -- 2ND DOSE COVID VACCINE CHRIS GLOVER 07/04 Released w/o Limitations [facility](Imm unizati on [place]) [facility] Outpatient Encounter [id number] Danika GOVEA 12/15 [facility] Outpatient Encounter [id number] 12/17 [facility] Outpatient Encounter [id number] 05/26 [facility] Outpatient Encounter [id number] 09/13 [facility] Outpatient Encounter [id number] 01/11 [facility] Outpatient Encounter [id number] 04/11 [facility] Procedures Combined list of: 1) Procedures from Department of Veterans Affairs facilities going back up to thelast 18 months, not all [place] non-surgical procedures are included; 2) All procedures from the Department of Defense facilities. Procedure Procedure Type Code Date Perfomer Comments Sour e Determination Of Refractive State Determination Of Refractive State 16670 ERIKA THOMASON [facility] Ophthalmological New Patient Start Comprehensive Care Ophthalmological New Patient Start Comprehensive [facility] [id number] [facility] Case Management, each 15 minutes MIKE MCALLISTER Coordinated care fee, maintenance rate MIKE MCALLISTER Influenza Split Virus Vaccine IM Preserv Free 0.5mL Dosage Quadrivalent Influenza Split Virus Vaccine IM Preserv Free 0.5mL Dosage Quadrivalent 76714 ROCIO HUITRON Influenza Seasonal, injectable quadrivalent - preservative free; Series #: 1; .5 mL; IM; Left Arm; g: Mevio; Lot: [id number]; VIS given (Luis E: 10/12/2014). [facility] Immunization Administration By Injection, One Vaccine Immunization Administration By Injection, One Vaccine 28031 ROCIO HUITRON [facility] Immunization Administration By Injection, Each Additional Vaccine Immunization Administration By Injection, Each Additional Vaccine 87564 ROCIO HUITRON [facility] Tdap Vaccine Tdap Vaccine 34773 ROCIO HUITRON Tdap; Series #: 1; .5 mL; IM; Right Arm; Mfg: Mevio; Lot: [id number]; VIS given (Luis E: 05/01/14). [facility] Pneumococcal Conjugate Vaccine, 13-Valent, IM Use Pneumococcal Conjugate Vaccine, 13-Valent, IM Use [id number] 018 ROCIO HUITRON Pneumococcal conjugate PCV 13; Series #: 1; .5 mL; IM; Right Arm; Mfg: Other; Lot: [id number]; VIS given (Luis E: 01/10/15). [facility] Vaccines Viral Measles, Mumps, Rubella, Varicella (Active) Vaccines Viral Measles, Mumps, Rubella, Varicella (Active) 43513 018 ROCIO HUITRON MMRV; Series #: 1; .5 mL; SC; Left Arm; Mfg: [employer]; Lot: [id number]; VIS given (Luis E: 07/26/09). [facility] Psychiatric Diagnostic Evaluation Initial Psychiatric Diagnostic Evaluation Initial [id number] MIKE MCALLISTER [facility] Non-Physician Phone Call To Patient/Provider Brief (5-10min) Non-Physician Phone Call To Patient/Provider Brief (5-10min) [id number] WILLIAM DELGADO [facility] Echocardiogram Transthoracic 2-D During Stre Test Echocardiogram Transthoracic 2-D During Stress Test 12394 014 TAYLOR JONES [facility] Influenza Split Virus Vaccine 0.5mL Dosage Intramuscular 013 DANAY VARGHESE [facility] Immunization Administration By Injection, One Vaccine Immunization Administration By Injection, One Vaccine 07648 013 DANAY VARGHESE [facility] Immunization Administration By Injection, Each Additional Vaccine Immunization Administration By Injection, Each Additional Vaccine 68339 013 DANAY VARGHESE [facility] Vaccines Viral Yellow Fever Vaccines Viral Yellow Fever 93645 DANAY JENSEN Yellow Fever; Series #: 1; .5 mL; SC; Left Arm; Mfg: Sanofi Pasteur; Lot: [id number]; VIS given (Luis E: 06/04/2010). [facility] Typhoid Vaccine Vi Capsular Polysaccharide, For Intramus Use Typhoid Vaccine Vi Capsular Polysaccharide, For Intramus Use 71388 DANAY JENSEN J Typhoid, ViCPs; Series #: 1; .5 mL; IM; Left Arm; Mfg: Sanofi Pasteur; Lot: [id number]; VIS given (Luis E: 08/04/11). [facility] Hepatitis A And Hepatitis B (Intramuscular Use) Adult Dosage Hepatitis A And Hepatitis B (Intramuscular Use) Adult Dosage 17257 013 DANAY VARGHESE Hep A - Hep B (Twinrix); Series #: 1; 1.0 mL; IM; Right Arm; Mfg: Mevio; Lot: [id number]; VIS given (Luis E: 12/30/10; 04/19/11). [facility] All pota ium hydroxide (patrick) preparations MABEL BECERRA Screening papanicolaou smear; obtaining, preparing and conveyance of cervical or vaginal smear to laboratory MABEL BECERRA Wet betito, including preparations of vaginal, cervical or skin specimens MABEL BECERRA [facility] Physician Supervised Specimen Handling / Transfer: Office To Lab Physician Supervised Specimen Handling / Transfer: Office To Lab [id number] MABEL BECERRA [facility] Vaccine SARS-CoV-2 mRNA-LNP Kiko Protein Preservative Free 30mcg/0.3mL Diluent Reconstituted IM Vaccine SARS-CoV-2 mRNA-LNP Kiko Protein Preservative Free 30mcg/0.3mL [place] [address] TAMARA SPARKS COVID-19 Pfizer; Series #: 1; 0.3 mL; IM; Left Arm; Mfg: [employer]; Lot: [id number]; VIS given (Luis E: 06/12/2020). [facility] Vacc SARS-CoV-2 mRNA-LNP Kiko Protein Preservative Free 30mcg/0.3mL Diluent Reconstituted IM First Dose Vacc SARS-CoV-2 mRNA-LNP Kiko Protein Preservative Free 30mcg/0.3mL Diluent Reconstituted IM First Dose 0001A TAMARA SPARKS [facility] Vaccine SARS-CoV-2 mRNA-LNP Kiko Protein Preservative Free 30mcg/0.3mL Diluent Reconstituted IM Vaccine SARS-CoV-2 mRNA-LNP Kiko Protein Preservative Free 30mcg/0.3mL [place] [address] [address] HERNÁNDEZ COVID-19 Pfizer; Series #: 2; 0.3 mL; IM; Left Arm; Mfg: [employer]; Lot: [id number]; VIS given (Luis E: 02/06/2020). [facility] Vacc SARS-CoV-2 mRNA-LNP Kiko Protein Preservative Free 30mcg/0.3mL Diluent Reconstituted IM Second Dose Vacc SARS-CoV-2 mRNA-LNP Kiko Protein Preservative Free 30mcg/0.3mL Diluent Reconstituted IM Second Dose 0002A RD HERNÁNDEZ [facility] DETERMINATION OF REFRACTIVE STATE 018 [facility] CASE MANAGEMENT, EACH 15 MINUTES 018 [facility] IMMUNIZATION ADMINISTRATION (INCLUDES PERCUTANEOUS, INTRADERMAL, SUBCUTANEOUS, OR INTRAMUSCULAR INJECTIONS); EACH ADDITIONAL VACCINE (SINGLE OR COMBINATION VACCINE/TOXOID) 018 [facility] PSYCHIATRIC DIAGNOSTIC EVALUATION 017 [facility] OTHER BILATERAL ENDOSCOPIC DESTRUCTION OR OCCLUSION OF FALLOPIAN TUBES 995 [facility] LAPAROSCOPY 995 [facility] CULDOCENTESIS 995 [facility] IMMUNIZATION ADM,INTRAMUSCULAR INJ,SEVERE AC RESPIRATORY SYNDROME CORONAVIR 2 (SARSCOV-2) (CORONAVIR DIS [COVID-19]) VACC,MRNALNP,SPIKE PROT,PRESRV FREE,30 MCG/0.3ML DOS,DILUENT RECONSTITUT;2ND DOSE 021 [facility] IMMUNIZATION ADM,INTRAMUSCULAR INJ,SEVERE AC RESPIRATORY SYNDROME CORONAVIR 2 (SARSCOV-2) (CORONAVIR DIS [COVID-19]) VACC,MRNALNP,SPIKE PROT,PRESRV FREE,30 MCG/0.3ML DOS,DILUENT RECONSTITUT;1ST DOSE 021 [facility] TELE ASSESS & MGT SRV PROV QUAL NONPHYS HLTH CARE PRO TO EST PAT,PARENT,GUARD NOT ORIG REL ASSESS & MGT SRV PROV W/IN PREV 7 DAYS NOR LEAD ASSESS & MGT SRV/PX W/IN NXT 24 HR/SOON APT;5-10 MIN MED DIS 015 [facility] ECG,TRANSTHOR,RT,IMG DOC (2D),INC M-MODE REC,WHEN PERFORM,DUR REST&CV STRES TEST USE TREADMILL,BICYCLE EXERC &/PHARMACOLOGICALLY IND STRES,INT&REP;INC PERF,CONT ECG MON,W SUPERVIS,A PHYS/OTH QUAL HCP [facility] ELECTROCARDIOGRAM, ROUTINE ECG WITH AT LEAST 12 LEADS; WITH INTERPRETATION AND REPORT [facility] HEPATITIS A AND HEPATITIS B VACCINE (HEPA-HEPB), ADULT DOSAGE, FOR INTRAMUSCULAR USE [facility] ALL POTASSIUM HYDROXIDE (PATRICK) PREPARATIONS [facility] Social History Combined list of available smoking, tobacco, and other social history from [facility] of Defense and [facility] Affairs facilities. Social History Type Response Date Comment Sourc e This section is an empty social history section. [facility]
--- OUTSIDE RECORDS SUMMARY | 2024-04-11 15:52 | XMS_ITS ---
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 Date/Time Encounter Type Encounter Description Reason Pro vider Source Apr 11, 2024 09:16 AM Outpatient Encounter ADMIN PAT ACTIVTIES (MASNONCT) IHE Encounter Template Text not used by [place] Encounter Notes: All associated encounter notes This section contains the clinical notes associated to the Encounter. Date/Time Encounter Note(s) Provider Source Apr 11, 2024 09:16 AM ADMINISTRATIVE NOT E: LOCAL TITLE: CCC: SCHEDULING ADMINISTRATION STANDARD TITLE: ADMINISTRATIVE NOTE DATE OF NOTE: APR 11, 2024@09:16:57 ENTRY DATE: APR 11, 2024@09:16:57 AUTHOR: ELIO CARLOS COSIGNER: URGENCY: STATUS: COMPLETED CCC: SCHEDULING ADMINISTRATION Has ADDENDA Patient Demographics Patient Name: CHET COOPER Patient Primary Phone: [phone] Patient Primary Address: [address] [place] [id number] Patient : 1970 Patient Age: 54 Caller/Recipient Relation to Patient: Self Caller Name: CHET COOPER Administrative Administrative Note Reason: Other Administrative Note Comments: Patient called and requested to be seen by a priamry care out of [place]. Please assist IMPORTANT: This note was created by [facility] Contact [facility] staff. Please do not alert the staff member by adding them as a signer for future communications. Alerts are not monitored by this user. /aimee/ ELIO BULLARD [facility] Signed: 04/11/2024 09:16 Receipt Acknowledged By: 04/11/2024 10:33 /es/ DEBORAH WHITE MSA IRRIGATION TAX ASSESSOR COLLECTOR, [facility] 04/11/2024 13:14 /es/ EMILY MEANS IRRIGATION TAX ASSESSOR COLLECTOR AMSA 04/11/2024 10:02 /es/ FRITZ RODRIGUEZ IRRIGATION TAX ASSESSOR COLLECTOR FRAME CLEANER 04/11/2024 ADDENDUM STATUS: COMPLETED Please call to establish care in [place]. /es/ EMILY MEANS IRRIGATION TAX ASSESSOR COLLECTOR AMSCarmen Signed: 04/11/2024 13:16 Receipt Acknowledged By: * AWAITING SIGNATURE * HÉCTOR MIRAMONTES JESSICA [place] [facility]
--- NOTE | 2024-04-11 15:57 | MHC.PC.OV ---
Vital Signs 04/11/24 16:07 Height 5 ft 7 in Weight 220 lb 6 oz BMI 34.5 BP 113/58 L Blood Pressure Location Rt brachial Position Sitting Respiration 16 Pulse 66 Pulse Source Pulse Oximeter Temp 98.2 F Temp Source Oral Pulse Oximetry (%) 96 Oxygen Delivery Method Room Air Intake Visit Reasons: CPE with f/u labs and health maint. 30 min Intake Note: patient here for CPE with f/u labs and health maint Holistic Health Practitioner Required: No Is last menstrual period known: No Post menopausal: No Patient : No Allergies No Known Allergies Allergy (Verified 04/11/24 16:01) Tobacco use date assessed: 09/01/23 Dental Screening Dental Screen Date: 04/11/24 Did you have a dental visit in the last 12 months?: Yes Did you have a dental problem in the last 6 months where you did not have access to dental care?: No Was dental information given to patient?: Patient has dentist HPI CPE with f/u labs and health maint. 30 min HPI Details 54 y/o female presents for a CPE with f/u labs and health maintenance. Labs drawn 04/03/24. Reviewed labs with pt. Elevated fasting glucose of 100. Triglycerides 80. TC 190. LDL 105. HDL 69. PFSH Medical History Depression with anxiety GERD (gastroesophageal reflux disease) Multiple sclerosis Surgical History H/O tubal ligation Hx of discectomy H/O spinal fusion Family History Daughter Mental health disorder Social History Household Members: None Both parents involved: No Caregiver staying overnight: No Housing: House Are you a primary housekeeper child care to a significant other at home: No Do you presently have visiting nurse or other home services: No 75 years or older and lives alone: No Alcohol intake: current Alcohol intake frequency: holidays/special occasions only Alcohol type: wine Patient Tobacco Use Status: Former Tobacco user e-Cigarette/Vaping Use: Never Used Patient : No service: Yes Current occupational status: employed 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 1. Little interest or pleasure in doing things: not at all 2. Feeling down, depressed, or hopeless: not at all 3. Trouble falling or staying asleep, or sleeping too much: not at all 4. Feeling tired or having little energy: not at all 5. Poor appetite or overeating: several days 6. Feeling bad about yourself - or that you are a failure or have let yourself or your family down: not at all 7. Trouble concentrating on things, such as reading the newspaper or watching television: not at all 8. Moving or speaking so slowly that other people could have noticed. Or the opposite - being so fidgety or restless that you have been moving around a lot more than usual: not at all 9. Thoughts that you would be better off or of hurting yourself in some way: not at all Total score: 1 Depression Screening Interpretation: Negative Depression Screening Done: Yes 06153 - PHQ-9 Billing: Yes Source: Developed by Drs. Kike Fontaine, Kerline Merlos, Marino Haines and colleagues, with an educational everardo from [employer]. Thrive Questionnaire Date Thrive assessed: 04/11/24 I am a: Patient What is your living situation today?: I have a steady place to live Within the past 12 months, did the food you bought not last and you didn't have the money to get more?: Never true Within the past 12 months, did you worry whether your food would run out before you got money to buy more?: Never true Do you have trouble paying for medicines?: No Do you have trouble getting transportation to medical appointments?: No Do you have trouble paying your heating and electricity bill?: No Do you have trouble taking care of your child, family member or friend?: No Do you have trouble with day-to-day activities such as bathing, preparing meals, shopping, managing finances, etc.?: No Are you currently unemployed and looking for a job?: No Are you interested in more education?: Yes Please select the resources that you would like help with: None Currently or been in a relationship where the following occur: No concerns reported THRIVE Score: 0 AUDIT C Alcohol Use Questionnaire (AUDIT-C) 1. How often do you have a drink containing alcohol?: Never 2. How many drinks containing alcohol do you have on a typical day when you are drinking?: 1 or 2 3. How often do you have six or more drinks on one occasion?: Never Total Score: 0 DOUG-7 AMB Questionnaire DOUG-7 Date DOUG - 7 assessed: 04/11/24 Feeling nervous, anxious, or on edge: 1 = Several days Not being able to stop or control worryin = Not at all Worrying too much about different things: 1 = Several days Trouble relaxin = Not at all Being so restless that it is hard to sit still: 0 = Not at all Becoming easily annoyed or irritable: 0 = Not at all Feeling afraid as if something awful might happen: 0 = Not at all Total DOUG-7 score (0-4 normal; 5-9 mild; 10-14 moderate; 15-21 severe): 2 Source: Developed by Drs. Kike Fontaine, Kerline Merlos, Marino Haines and colleagues, with an educational everardo from [employer]. DOUG-7 Assessment Billing DOUG-7 Assessment Tool: DOUG-7 Assessment 74329 Review of Systems Const Denies chills, Denies fatigue, Denies fever(s), Denies headache(s) and Denies weakness Eyes Denies change in vision ENT Denies dizziness, Denies headache(s), Denies hearing loss, Denies nasal congestion, Denies sinus pain, Denies sinus pressure and Denies sore throat Card Denies chest pain, Denies lightheadedness, Denies dyspnea and Denies other (palpitations) Resp Denies cough, Denies dyspnea and Denies wheezing GI Denies abdominal pain, Denies melena, Denies hematochezia, Denies change in bowel habits, Denies dyspepsia and Denies nausea Denies hematuria and Denies dysuria Musc Denies abnormal gait, Denies myalgias, Denies arthralgias, Denies numbness and Denies tingling Skin/Breast Denies rash, Denies unusual bruising and Denies wounds Neuro Denies abnormal gait, Denies dizziness, Denies headache(s), Denies memory loss, Denies numbness, Denies Sensory deficit (Neuro), Denies tingling and Denies weakness Psych Denies anxiety, Denies depression and Denies memory loss Endo Denies cold intolerance, Denies fatigue, Denies heat intolerance, Denies polydipsia and Denies polyuria Froylan/Lymph Denies easy bleeding and Denies easy bruising Aller/Immun Denies wheezing Physical exam (Primary Care) Vital Signs: Last Vital Signs Temp 98.2 F 04/11/24 16:07 Pulse 66 04/11/24 16:07 Resp 16 04/11/24 16:07 BP 113/58 L 04/11/24 16:07 Pulse Ox 96 04/11/24 16:07 Oxygen Delivery Method Room Air 04/11/24 16:07 BMI result Body Mass Index 34.5 Tobacco/Smoking Status: Tobacco use Status Tobacco use date assessed 09/01/23 04/11/24 16:09 Patient Tobacco Use Status Former Tobacco user 04/11/24 16:09 e-Cigarette/Vaping Use Never Used 04/11/24 16:09 PHQ-9: PHQ-9 Score PHQ-9: Total score 1 04/11/24 16:19 Depression Screening Interpretation: Negative Thrive Assessment: Date of Thrive Assessment Date Thrive assessed 04/11/24 04/11/24 16:09 Currently or been in a relationship where the following occur: No concerns reported Const General: no acute distress, well developed, alert and awake Nutritional Appearance: well nourished Orientation/consciousness: patient oriented x3 HENMT Head: Yes normocephalic and Yes atraumatic Ears: hearing grossly normal bilaterally and TM's normal bilaterally General nose exam: Normal external nose present and Normal nares present Mouth: Normal oral and palatal mucosa present and moist mucous membranes Teeth and gingiva: dentition normal Throat: Yes posterior oropharynx normal Eyes General: appearance normal, both eyes and all related structures Pupils: Equal, round and reactive pupils present and Pupil accommodation reflex normal EOM: EOMs intact bilaterally Neck Neck: Yes normal visual inspection, Yes no lymphadenopathy and Yes trachea midline Thyroid: Thyroid normal Carotids: no bruits Lymphatic: no lymphadenopathy noted Chest Chest palpation & inspection: normal inspection of the chest Resp Effort & Inspection: normal respiratory effort Auscultation: clear to auscultation bilaterally Cardio Rate: regular rate Rhythm: regular rhythm Heart sounds: S1 normal heart sound present, S2 normal heart sound present, no gallops, no murmurs and no rubs Bruits: no abdominal aortic bruits and no carotid bruits GI Palpation (GI): No Abdominal aortic bruit present, Soft to palpation, nontender, No hepatosplenomegaly present and No Rebound tenderness present Auscultation: normal bowel sounds General: Yes no CVA tenderness Back/Spine/Pelvis Back: no CVA tenderness Cervical Spine: cervical ROM normal and No Cervical spine tenderness Thoracic/Lumbar Spine: thoraco-lumbar ROM normal, No pain with thoraco-lumbar ROM, No thoracic spinal tenderness and No lumbar spinal tenderness Skin Lesions: no lesions Rashes: no rashes Trauma: no lacerations or abrasions Wounds: no wounds Nails: normal Neuro General: patient oriented x3 Cranial nerves: Yes Equal, round and reactive pupils present Cognition (Neuro): normal cognition Gait exam (Neuro): Normal gait present Motor exam (neuro): 5/5 motor strength present throughout Sensory Exam: No Sensory deficit (Neuro) Deep tendon reflexes (DTR's): Right patellar reflex intensity grade: 2+ and Left patellar reflex intensity grade: 2+ Extrem General: Yes normal to inspection and No edema Psych Appearance: grossly normal Affect: normal affect Attitude: cooperative Thought process: Normal thought process present Coding Level of Care Code Est Pt Level 3 (48349) Est Pt Prev Care 40-64y(06615) Diagnoses Adult general medical exam Z00.00 Multiple sclerosis G35 Elevated fasting glucose R73.01 Elevated LDL cholesterol level E78.00 Breast cancer screening by mammogram Z12.31 Screening for cervical cancer Z12.4 Screening for colon cancer Z12.11 Screening for skin cancer Z12.83 Cystic acne L70.0 Additional Codes DOUG-7 Assessment Billing - DOUG-7 Assessment Tool: DOUG-7 Assessment 54780 ([id number]) PHQ-9 - 18284 - PHQ-9 Billing: Yes ([id number]) Assessment & Plan Assessment & Plan (1) Adult general medical exam: Code(s): Z00.00 - Encounter for general adult medical examination without abnormal findings Category: Medical Plan: 54-year-old?female?presents?for?complete?physical?exam Encouraged?healthy?diet?with?active?lifestyle?and?plenty?of?exercise (2) Multiple sclerosis: Code(s): G35 - Multiple sclerosis Category: Medical Plan: Patient?has?an?upcoming?appointment?with?Neurology.??I?asked?her?to?have?her?specialist?forward?their?note (3) Elevated fasting glucose: Code(s): R73.01 - Impaired fasting glucose Category: Medical Plan: Mildly?elevated?fasting?blood?sugar. Encouraged?a?diet?lower?in?sugars?and?starches Encouraged?exercise?and?weight?loss We?can?recheck?blood?sugar?at?next?visit (4) Elevated LDL cholesterol level: Code(s): E78.00 - Pure hypercholesterolemia, unspecified Category: Medical Plan: Mildly?elevated?LDL?cholesterol?but?her?HDL?ratios?are?good Encouraged?a?diet?lower?in?saturated?fats?and?cholesterol Encouraged?exercise?and?weight?loss (5) Breast cancer screening by mammogram: Code(s): Z12.31 - Encounter for screening mammogram for malignant neoplasm of breast Category: Medical Plan: Mammogram?showed?no?evidence?of?malignancy?and?recommended?annual?screening Continue?annual?screening (6) Screening for cervical cancer: Code(s): Z12.4 - Encounter for screening for malignant neoplasm of cervix Category: Medical Plan: Patient?had?Pap?smear?with?[facility]?OBGYN Up-to-date (7) Screening for colon cancer: Code(s): Z12.11 - Encounter for screening for malignant neoplasm of colon Category: Medical Plan: Followed?by?[facility]?gastroenterology Follow-up?as?recommended (8) Screening for skin cancer: Code(s): Z12.83 - Encounter for screening for malignant neoplasm of skin Category: Medical Plan: Patient?would?like?referral?for?cystic?acne?and?skin?survey Referred (9) Cystic acne: Code(s): L70.0 - Acne vulgaris Category: Medical Plan: As?above,?patient?is?referred?to?Dermatology Plan Also,?I?had?referred?patient?to?Sleep?Medicine?and?she?has?an?appointment. Orders: Orders Basic Metabolic Panel Fasting Today R73.01 - Impaired fasting glucose Hemoglobin A1c Today R73.01 - Impaired fasting glucose Referrals Dermatology Referral L70.0 - Acne vulgaris, Z12.83 - Encounter for screening for malignant neoplasm of skin
[2024-04-11 16:07] VITALS: BP 113/58; PULSE 66; RESP 16; TEMP 36.8; O2SAT 96; BMI 34.5
== END 2024-04-11 16:51 | disposition home or self-care (01) ==
PROVIDERS: PCP Family Medicine; Visit Provider Family Medicine
DX: Z00.00 Encounter for general adult medical examination without abnormal findings (principal); G35 Multiple sclerosis; R73.01 Impaired fasting glucose; E78.00 Pure hypercholesterolemia, unspecified; Z12.31 Encounter for screening mammogram for malignant neoplasm of breast; Z12.11 Encounter for screening for malignant neoplasm of colon; Z12.83 Encounter for screening for malignant neoplasm of skin; L70.0 Acne vulgaris

== ENCOUNTER → 2024-04-11 15:47 | Outpatient (BNVA) | payer OTHER, SELFPAY | PROVIDERS: PCP Family Medicine; Visit Provider Family Medicine | DX: Z00.01 Encounter for general adult medical examination with abnormal findings (principal); G35 Multiple sclerosis; R73.01 Impaired fasting glucose; E78.00 Pure hypercholesterolemia, unspecified; L70.0 Acne vulgaris | CPT/HCPCS: 96127; 99212 ==

== ENCOUNTER 2024-04-19 08:04 | Outpatient (AMB) | payer OTHER, SELFPAY ==
--- OUTSIDE RECORDS SUMMARY | 2024-04-19 08:08 | XMS_ITS | Continuity of Care Document ---
Author Name [facility] Organization [facility] Care Team Providers Care Photography Coordinator Name Role Phone [facility] Unavailable Unavailable Problems Combined list of problems [...] Condition DoD Low back pain Active Condition [facility] Strain of muscle, fascia and tendon [...] DoD Need For Vaccination Typhoid Inactive Condition [facility] visit for: screening exam for malignant neoplasm cervix Inactive Condition [facility] routine gynecological exam with cervical pap smear Inactive Condition [facility] Medications Combined list of outpatient medications from Department of Defense and Veterans Affairs facilities.Medications provided include 1) outpatient medications from the last 15 months, and 2) patient-reported medications. Medication Details Route Status Patient Instructions Prescription Expires Prescription Number Last Dispense Date Ordering Provider Order Date Order Qty Source COMIRNATY [id number] (COVID vac 2022- (12 yr and up) XBB.1.5 (raxtozinam clement)/PF), 30 MCG/0.3, VIAL, INTRAMUSC, PFIZER US PHARM, .3 ml VIAL Active [id number] 2023 0.3 Pharmac y Data Transac tion Service Facilit y ESCITALOPRA M OXALATE (escitalopr am oxalate), 20 MG, TABLET, ORAL, [employer] 90 ea. BOTTLE Active [id number] 4 2023 90 Pharmac y Data Transac tion Service Facilit y ESCITALOPRA M OXALATE (escitalopr am oxalate), 20 MG, TABLET, ORAL, [employer], 100 ea. BOTTLE Active [id number] 2023 90 Pharmac y Data Transac tion Service Facilit y ESCITALOPRA M OXALATE (escitalopr am oxalate), 20 MG, TABLET, ORAL, [employer], 100 ea. BOTTLE Cancele d [id number] : 2023 0 Pharmac y Data Transac tion Service Facilit y FAMOTIDINE (FAMOTIDINE ), 40MG, TABLET, ORAL, [employer], 100 ea. BOTTLE Active [id number] 4 2023 90 Pharmac y Data Transac tion Service Facilit y FAMOTIDINE (FAMOTIDINE ), 40MG, TABLET, ORAL, [employer], 100 ea. BOTTLE Cancele d [id number] : 2023 0 Pharmac y Data Transac tion Service Facilit y OSELTAMIVIR PHOSPHATE (oseltamivi r phosphate), 75 MG, CAPSULE, ORAL, AMNEAL PHARMACE, 10 ea. BLIST PACK Active [id number] 3 2023 10 Pharmac y Data Transac tion Service Facilit y SHINGRIX (varicella- zoster virus glycoprotei n E,rec/AS01B adjuvant/PF ), 50 MCG/0.5, KIT, INTRAMUSC, GLAXOSMITHK LINE, 1 ea. KIT Active [id number] 4 2023 1 Pharmac y Data Transac tion Service Facilit y Allergies, Adverse Reactions, Alerts Combined list of allergies from Department of Defense and Veterans Affairs facilities. It does not include entries that were removed or entered in error. Substance Category Reaction Severity Reaction type Status Date Reported Comments Source No Known Allergies Drug allergy (disorder) active 3 [facility] Immunizations Combined list of available immunizations from the Department of Defense and Veterans Affairs facilities. 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 Status Comments Source zoster recombinant 2023 () Not Given zoster recombina nt DoD COVID-19, mRNA, LNP-S, PF, 30 mcg/0.3 mL dose 2020 NZEOGU, [facility] (PFR) Not Given COVID-19, mRNA, LNP-S, PF, 30 mcg/0.3 mL dose DoD influenza, injectable, quadrivalent, preservative free 2020 NZEOGU, () Not Given influenza , injectabl e, quadrival ent, preservat sadiq free DoD SARS-COV-2 (COVID-19) vaccine, mRNA, spike protein, LNP, preservative free, 30 mcg/0.3mL dose [address] HERNÁNDEZ [id number] [employer] (PFR) complet ed SARS-COV- 2 (COVID-19 ) vaccine, mRNA, spike protein, LNP, preservat sadiq free, 30 mcg/0.3mL dose DoD SARS-COV-2 (COVID-19) vaccine, mRNA, spike protein, LNP, preservative free, 30 mcg/0.3mL dose 1 2020 TAMARA SPARKS [id number] [employer] (PFR) complet ed SARS-COV- 2 (COVID-19 ) vaccine, mRNA, spike protein, LNP, preservat sadiq free, 30 mcg/0.3mL dose DoD influenza, injectable, quadrivalent, preservative free 2019 NZEOGU, () Not Given influenza , injectabl e, quadrival ent, preservat sadiq free DoD measles, mumps, rubella, and varicella virus vaccine 1 2017 ROCIO HUITRON [id number] Merck (MSD) complet ed measles, mumps, rubella, and varicella virus vaccine DoD tetanus toxoid, reduced diphtheria toxoid, and acellular pertu is vaccine, adsorbed 1 2017 ROCIO HUITRON [id number] [place] [address] (SKB) complet ed tetanus toxoid, reduced diphtheri a toxoid, and acellular pertussis vaccine, adsorbed DoD pneumococcal conjugate vaccine, 13 valent 1 2017 ROCIO HUITRON N [id number] Other (OTH) complet ed pneumococ rubina conjugate vaccine, 13 valent DoD Influenza, injectable, quadrivalent, preservative free 1 2017 ROCIO HUITRON N [id number] 150 [employer]line (SKB) complet ed Influenza , injectabl e, quadrival ent, preservat sadiq free DoD Influenza, seasonal, injectable, preservative free 7 2014 Unknown, Provider [id number] 140 Genophen, [employer]. (CSL) complet ed Influenza , seasonal, injectabl e, preservat sadiq free DoD measles, mumps and rubella virus vaccine 1 2014 [id number] 03 Merck (MSD) complet ed measles, mumps and rubella virus vaccine DoD typhoid Vi capsular polysaccharid e vaccine 1 2014 [id number] 101 Sanofi Pasteur (PMC) complet ed typhoid Vi capsular polysacch aride vaccine DoD Influenza, seasonal, injectable 1 2013 141 Transcribed (TRS) complet ed Influenza , seasonal, injectabl e DoD hepatitis B vaccine, adult dosage 3 2012 [id number] 43 [employer] (SKB) complet ed hepatitis B vaccine, adult dosage DoD Influenza, injectable, Madin [place] Canine Kidney, preservative free 1 2012 [id number] 153 [employer]. (NOV) complet ed Influenza , injectabl e, Madin Tori Canine Kidney, preservat sadiq free DoD influenza virus vaccine, whole virus 1 2012 DANAY VARGHESE [id number] 16 Sanofi Pasteur (PMC) complet ed influenza virus vaccine, whole virus DoD yellow fever vaccine 1 2012 DANAY VARGHESE [id number] Sanofi Pasteur (PMC) complet ed yellow fever vaccine DoD typhoid vaccine, unspecified formulation 1 2012 91 Transcribed (TRS) complet ed typhoid vaccine, unspecifi ed formulati on DoD typhoid Vi capsular polysaccharid e vaccine 1 2012 DANAY VARGHESE [id number] 101 Sanofi Pasteur (PMC) complet ed typhoid Vi capsular polysacch aride vaccine DoD hepatitis A and hepatitis B vaccine 1 2012 DANAY VARGHESE [id number] 104 Smithine (SKB) complet ed hepatitis A and hepatitis B vaccine DoD seasonal influenza, intradermal, preservative free 0 2012 [id number] 1A 144 Sanofi Pasteur ([facility]) complet ed seasonal influenza , intraderm al, preservat sadiq free DoD influenza nasal, unspecified formulation 1 2012 151 Transcribed (TRS) complet ed influenza nasal, unspecifi ed formulati on DoD influenza virus vaccine, split virus (incl. purified surface antigen)-reti red CODE 0 2009 [id number] 15 [employer]. ([facility]) complet ed influenza virus vaccine, split virus (incl. purified surface antigen)- retired CODE DoD hepatitis A and hepatitis B vaccine 1 2009 [id number] 104 [facility] ([facility]) complet ed hepatitis A and hepatitis B vaccine DoD tuberculin skin test; purified protein derivative solution, intradermal 1 2006 Unknown, Provider [id number] 96 Sanofi Pasteur ([facility]) complet ed tuberculi n skin test; purified protein derivativ e solution, intraderm al DoD tetanus and diphtheria toxoids, adsorbed, preservative free, for adult use (2 Lf of tetanus toxoid and 2 Lf of diphtheria toxoid) 1 2006 [id number] 09 Sanofi Pasteur ([facility]) complet ed tetanus and diphtheri a toxoids, adsorbed, preservat sadiq free, for adult use (2 Lf of tetanus toxoid and 2 Lf of diphtheri a toxoid) DoD poliovirus vaccine, inactivated 1 2006 [id number] 10 Sanofi Pasteur ([facility]) complet ed polioviru s vaccine, inactivat ed DoD influenza virus vaccine, split virus (incl. purified surface antigen)-reti red CODE 1 2006 [id number] 15 [facility] ([facility]) complet ed influenza virus vaccine, split [...] (incl. purified surface antigen)-reti red CODE 0 [id number] 15 Mariza (WAL) complet ed influenza virus [...] from Department of Veterans Affairs facilities going backup to the last 18 months, not all VA inpatient encounters are included; 2) Encounters from the Department of Defense facilities going backup to 280 months. Location Location Details Encounter Type Encounter Number Reason For Visit Attending Provider ADM Date DC Date Status Disposition Source [facility](P [place] T[facility]) OUTPATIENT [id number] ANNUAL PAP [id number] MABEL BECERRA 07/02 Released w/o Limitations [facility](MHP [place] T1) [facility](Immuniz ation [place]) OUTPATIENT [id number] Notes Entered by: HECTOR SAM 05 Jul 2012 0710 ------- ------- ------- ------- -- DANAY Serrato 07/05 Released w/o Limitations [facility](Imm unizati on [place]) [facility](Immuniz ation [place]) OUTPATIENT [id number] Notes Entered by: TIRSO CASTELAN P 08 Jul 2012 1317 ------- ------- ------- ------- -- Review VIRGIE CASTELAN 07/08 Released w/o Limitations [facility](Imm unizati on [place]) [facility] [place]) OUTPATIENT [id number] VALENTÍN Avila 07/15 Released w/o Limitations [facility](Dep loyment Health [place]) [facility] [place] T1) TELE CONSULT [id number] Notes Entered by: Aidel GARRIDO 17 Jul 2012 1737 ------- ------- ------- ------- -- T-CON - Lab Result STERLING STROUD 07/17 [facility] [place] T[facility]) [facility] [place] T[facility]) TELE CONSULT [id number] Notes Entered by: Farooq MC 25 Jul 2012 1118 ------- ------- ------- ------- -- Mail out/pap JUWAN MC JULYKAILYN 07/25 [facility] [place] T1) [facility] [place] T[facility]) TELE CONSULT [id number] Notes Entered by: PATRICIA ANDERS 01 Jan 2013 1718 ------- ------- ------- ------- -- labs? PATRICIA POWERS 01/01 [facility](P [place] T1) [facility] [place] [facility]) OUTPATIENT [id number] [place] MABEL Nunez 01/03 Released w/o Limitations [facility](MHP [place] T1) [facility](Emergen cy Medicine [place]CP) OUTPATIENT [id number] LAURA ANGELASailaja 05/02 Released w/o Limitations [facility](Julia rgency Medicin e [place]) [facility](Cardiol ogy [place]) TELE CONSULT [id number] Notes Entered by: ENRIQUE LEUNG 05 May 2013 0856 ------- ------- ------- ------- -- DARCY instruc VEL Bowman 05/05 [facility](Car diology [place]) [facility](Cardiol ogy [facility]) OUTPATIENT [id number] ECHO STRESS ANDREA AGUILAR 05/08 Released w/o Limitations [facility](Car diology [place]) [facility](MHP [place] T[facility]) OUTPATIENT [id number] F/U CARDIOL OGY TEST MABEL BECERRA 06/02 Released w/o Limitations [facility](MHP [place] T1) [facility]([place] T[place]) OUTPATIENT [id number] anxiety issues, possibl e medicat ion MABEL BECERRA 12/19 Released w/o Limitations [facility](MHP [place] T1) [facility] [place] [facility]) OUTPATIENT [id number] follow up on anti anxiety med/ct ght loss MABEL BECERRA 03/22 Released w/o Limitations [facility](MHP [place] T1) [facility] [place] T[facility]) TELE CONSULT [id number] Notes Entered by: Adiel GARRIDO 29 Mar 2014 1830 ------- ------- ------- ------- -- T-CON - Lab results STERLING STROUD 03/29 [facility](MHP [place] T1) [facility] [place](Health Promotion [place]) TELE CONSULT [id number] Notes Entered by: JESUS LE 17 May 2014 1247 ------- ------- ------- ------- -- Tel referra l assess ent EMIGDIO SANABRIA 05/17 Other Not Elsewhere Classified [facility] [place] [facility](M[facility] [place] T[facility]) TELE CONSULT [id number] JANA CRISTIANA M 05/17 [facility] [facility] [place]([employer] NMCP) TELE CONSULT [id number] Notes Entered by: JESUS LE 22 May 2014 1201 ------- ------- ------- ------- -- Attempt ed to call for referra l follow up EMIGDIO SANABRIA 05/22 Other Not Elsewhere Classified [facility](Hea lth Promoti on NMCP) [facility] [place]([facility] NMCP) TELE CONSULT [id number] Notes Entered by: JESUS LE 23 May 2014 1332 ------- ------- ------- ------- -- Referra l follow up-requ ests EMIGDIO Panchal pe 05/23 Other Not Elsewhere Classified [facility](Hea lth Promoti on NMCP) [facility] [place] [facility] [place] [facility]) OUTPATIENT [id number] F/U MABEL PHILLIPS 05/27 Released w/o Limitations [facility] [place] [facility] [place] [facility](M[facility] [place] T[facility]) TELE CONSULT [id number] Notes Entered by: WILLIAM DELGADO 11 Jun 2014 0944 ------- ------- ------- ------- -- Message from WILLIAM Brooks 06/11 Referred for Appointment [facility] [place] [facility]) [facility]) OUTPATIENT [id number] bilater al foot swellin adiel PAIGE JAILYN S 06/18 Released with Work/Duty Limitations [facility]) [facility]) OUTPATIENT [id number] f/u per Dr. Garcia from bilat foot swephillipin DENIA Fitch 06/19 Released w/o Limitations [facility]) [facility] [place] T[facility]) TELE CONSULT [id number] Notes Entered by: ED NICOLE 03 Jul 2014 1146 ------- ------- ------- ------- -- Pt of Mrs. Becerra, out of depress ion medicat ion FAITH MORENO 07/03 Referred for Appointment [facility] [place] T1) [facility] [place] [facility]) OUTPATIENT [id number] R FOOT INJURY X 2 DAYS CRISTIANA BATES 07/16 Released w/o Limitations [facility](P [place] T1) [facility](Neurolo gy NMCP) OUTPATIENT [id number] spec MARLEY CRESPO 08/02 Released w/o Limitations [facility](Mariya rology NMCP) [facility] [place] T[facility]) OUTPATIENT [id number] F/U FOR LEFT SIDE FACE PAIN CRISTIANA BATES 08/12 Released w/o Limitations [facility](P [place] T1) [facility](Orthope dic NMCP) OUTPATIENT [id number] LIMB PAIN FOOT AND TOES TAYLOR AMBROCIO 08/28 Released w/o Limitations [facility](Ort hopedic [place]CP) [facility](NMCP Referral Clinic) TELE CONSULT [id number] Notes Entered by: JENNY THOMAS 02 Oct 2014 1035 ------- ------- ------- ------- -- NETWORK RESULTS -ENT F/U-09/06- 56230 CRISTIANA BATES Rebekah 10/02 [facility] P Referra l [facility]) [facility] [place] [facility](M[facility] [place] T[place]) OUTPATIENT [id number] BONE GROWTH IN MOUTH X4MTHS MABEL BECERRA 10/03 Released w/o Limitations [facility](MHP [place] T1) [facility] [place](Neurolo gy NMCP) OUTPATIENT [id number] F/U MARLEY CRESPO 10/22 Released w/o Limitations [facility](Mariya rology NMCP) [facility](MHP [place] T1) OUTPATIENT [id number] F/U ANXIETY MABEL BECERRA 11/21 Released w/o Limitations [facility](MHP [place] T1) [facility] [place] [facility]PAT[facility] [id number] PAP EXAM -1971 MABEL BECERRA 01/01 Released w/o Limitations [facility](MHP [place] T1) [facility](Neurolo gy NMCP) TELE CONSULT [id number] Notes Entered by: IVET CHACKO 12 Mar 2015 1140 ------- ------- ------- ------- -- Pt states that she needs a consult for an mri ZAK, MARLEY 03/12 [facility](Mariya rology NMCP) [facility](MHP [place] T1) TELE CONSULT [id number] Notes Entered by: PROMISE JESUS 22 May 2015 0823 ------- ------- ------- ------- -- Med refill MABEL BECERRA 05/21 [facility] [place] T[facility]) [facility](Neurolo gy [place]CP) OUTPATIENT [id number] fol/up NICOLE CRESPOINE 06/17 Released w/o Limitations [facility](Mariya rology NMCP) [place]) OUTPATIENT [id number] EST PCM- F/U Anxiety taking Wellbut rin EZEQUIEL HUTCHINSON 09/10 Released w/o Limitations [place] [facility]) [facility] [place] T[facility]) TELE CONSULT [id number] Notes Entered by: FAITH MORENO 15 Oct 2015 0945 ------- ------- ------- ------- -- [facility] FAITH MORENO 10/14 Referred for Appointment [facility] [place] T[facility] OUTPATIENT [id number] cough and congest ion x 8 days OTCs not working . bilater al ear ache EZEQUIEL HUTCHINSON 01/12 Released w/o Limitations [place] [place]) [place] [place] OUTPATIENT [id number] acid reflux symptom s EZEQUIEL HUTCHINSON 02/16 Released w/o Limitations [place] [place] [place] TELE CONSULT [id number] Notes Entered by: ANDREW KAHN 31 Mar 2016 1337 ------- ------- ------- ------- -- Refill bupropr ion JULITO KAHN 03/31 [place] [facility] [place] [facility] [place] [id number] med refill EZEQUIEL HUTCHINSON 04/16 Released with Work/Duty Limitations [place] [place]) [place] [place] TELE CONSULT [id number] Notes Entered by: EZEQUIEL HUTCHINSON 05 May 2016 1317 ------- ------- ------- ------- -- lab EZEQUIEL HUTCHINSON 05/05 [place] [employer] [facility]) [place] [employer]) OUTPATIENT [id number] MED REFILL EZEQUIEL HUTCHINSON 06/05 Released w/o Limitations [place]) [place] [employer] OUTPATIENT [id number] [facility] REGARDI NG MED EZEQUIEL HUTCHINSON 10/22 Released w/o Limitations [place] [employer] [facility] [employer] [facility]) OUTPATIENT [id number] L Forearm pain x 3 weeks EZEQUIEL HUTCHINSON 12/17 Released w/o Limitations [place] Family [place] [facility]) [place] [employer] OUTPATIENT [id number] Med refill EZEQUIEL HUTCHINSON 02/22 Released w/o Limitations [place] Family [place] [facility]) [place] Immun[facility] [facility] OUT[place]IENT [id number] Notes Entered by: LAURYN NUNN ON N 05 Apr 2017 1042 ------- ------- ------- ------- -- MMRV, TD, PCV13, FLU SHOT BELLO CAPPS 04/05 Released w/o Limitations [place] Immun[place] Family [place] [facility]) OUTPATIENT [id number] Med Refill EZEQUIEL HUTCHINSON 05/07 Released w/o Limitations [place] [facility] [place] [facility] [facility] OUTPATIENT [id number] well woman exam EZEQUIEL HUTCHINSON 06/14 Released w/o Limitations [place] [facility] [place] Case [employer] [place]) TELE CONSULT [id number] Notes Entered by: Nestor MCALLISTER 27 Sep 2017 1230 ------- ------- ------- ------- -- CM follow up MIKE MCALLISTER 09/27 [place] [facility]) [place] [facility] OUTPATIENT [id number] medicat ion refill nexium EZEQUIEL HUTCHINSON 12/22 Released w/o Limitations [place] [facility] [place] OUTPATIENT [id number] ERIKA ALCAZAR 12/29 Released w/o Limitations [place] [facility] [facility] TELE CONSULT [id number] Notes Entered by: EZEQUIEL HUTCHINSON 21 Jan 2018 1247 ------- ------- ------- ------- -- labs- elevate d TSH EZEQUIEL HUTCHINSON 01/21 [place] [facility] [facility] TELE CONSULT [id number] Notes Entered by: EZEQUIEL HUTCHINSON 26 Jan 2018 0912 ------- ------- ------- ------- -- pt in for thryoid check EZEQUIEL HUTCHINSON 01/26 [place] [facility] [facility] OUTPATIENT [id number] 2 referra l for neuro f/u EZEQUIEL HUTCHINSON 02/04 Released w/o Limitations [place] [facility] [facility] OUTPATIENT [id number] 3 bite by cat yesterd ay, cat not up to date on shots GAYLE, HY G 06/02 Released w/o Limitations [place] [facility]) [facility](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 [employer]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 NMCP) TELE CONSULT [id number] Notes Entered by: MARY CARMENCHARLENE LING 10 Oct 2018 1534 ------- ------- ------- ------- -- Medicin e refill MIYA LENTZ ANURADHA 10/10 [facility](Senior [employer]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 [place]CP) [place] Family [facility]) TELE CONSULT [id number] Notes Entered by: Farooq VALDERRAMA 30 Jan 2020 1311 ------- ------- ------- ------- -- med request patient from out of town BILLY VALDERRAMA 01/29 [place] Family [place]) [facility](Sports Ortho NMCP) OUTPATIENT [id number] - Pain In Right Shoulde IVIS Berry 06/03 Released w/o Limitations [facility](Spo rts Ortho NMCP) [facility](Immuniz ation [place]) OUTPATIENT [id number] Notes Entered by: RAJAN KIM 12 Jun 2020 0928 ------- ------- ------- ------- -- 1ST DOSE COVID VACCINE . TAMARA SPARKS 06/12 Released w/o Limitations [facility](Imm unizati on [place]) [facility](Immuniz ation [place]) OUTPATIENT [id number] Notes Entered by: RAJAN KIM 04 Jul 2020 1257 ------- ------- ------- ------- -- 2ND DOSE COVID VACCINE CHRIS GLOVER 07/04 Released w/o Limitations [facility](Imm unizati on [place]) [facility] Outpatient Encounter [id number] Danika GOVEA 12/15 [facility] Outpatient Encounter [id number] 12/17 [facility] Outpatient Encounter [id number] 05/26 [facility] Outpatient Encounter [id number] 09/13 [facility] Outpatient Encounter [id number] 01/11 [facility] [place] [facility] Outpatient Encounter [id number] 04/11 [place] [facility] [place] [facility] Procedures Combined list of: 1) Procedures from Department of Veterans Affairs facilities going back up to thelast 18 months, not all [place] non-surgical procedures are included; 2) All procedures from the Department of Defense facilities. Procedure Procedure Type Code Date Perfomer Comments Sourc e DETERMINATION OF REFRACTIVE STATE 018 [facility] CASE MANAGEMENT, EACH 15 MINUTES 018 [facility] IMMUNIZATION ADMINISTRATION (INCLUDES PERCUTANEOUS, INTRADERMAL, SUBCUTANEOUS, OR INTRAMUSCULAR INJECTIONS); EACH ADDITIONAL VACCINE (SINGLE OR COMBINATION VACCINE/TOXOID) 018 [facility] PSYCHIATRIC DIAGNOSTIC EVALUATION 017 [facility] OTHER BILATERAL ENDOSCOPIC DESTRUCTION OR OCCLUSION OF FALLOPIAN TUBES 995 [facility] LAPAROSCOPY 995 DoD CULDOCENTESIS 995 DoD IMMUNIZATION ADM,INTRAMUSCULAR INJ,SEVERE AC RESPIRATORY SYNDROME CORONAVIR 2 (SARSCOV-2) (CORONAVIR DIS [COVID-19]) VACC,MRNALNP,SPIKE PROT,PRESRV FREE,30 MCG/0.3ML DOS,DILUENT RECONSTITUT;2ND DOSE 021 DoD IMMUNIZATION ADM,INTRAMUSCULAR INJ,SEVERE AC RESPIRATORY SYNDROME CORONAVIR 2 (SARSCOV-2) (CORONAVIR DIS [COVID-19]) VACC,MRNALNP,SPIKE PROT,PRESRV FREE,30 MCG/0.3ML DOS,DILUENT RECONSTITUT;1ST DOSE 021 DoD TELE ASSESS & MGT SRV PROV QUAL NONPHYS TH CARE PRO TO EST PAT,PARENT,GUARD NOT ORIG REL ASSESS & MGT SRV PROV W/IN PREV 7 DAYS NOR LEAD ASSESS & MGT SRV/PX W/IN NXT 24 HR/SOON APT;5-10 MIN MED DIS 015 [facility] ECG,TRANSTHOR,RT,IMG DOC (2D),INC M-MODE REC,WHEN PERFORM,DUR REST&CV STRES TEST USE TREADMILL,BICYCLE EXERC &/PHARMACOLOGICALLY IND STRES,INT&REP;INC PERF,CONT ECG MON,W SUPERVIS,A PHYS/OTH QUAL HCP 014 [facility] ELECTROCARDIOGRAM, ROUTINE ECG WITH AT LEAST 12 LEADS; WITH INTERPRETATION AND REPORT [facility] HEPATITIS A AND HEPATITIS B VACCINE (HEPA-HEPB), ADULT DOSAGE, FOR INTRAMUSCULAR USE [facility] ALL POTASSIUM HYDROXIDE (ERNIE) PREPARATIONS 013 [facility] Determination Of Refractive State Determination Of Refractive State [id number] ERIKA THOMASON Ophthalmological New Patient Start Comprehensive Care Ophthalmological New Patient Start Comprehensive Care [id number] ERIKA THOMASON Case Management, each 15 minutes MIKE MCALLISTER [facility] Coordinated care fee, maintenance rate MIKE MCALLISTER Influenza Split Virus Vaccine IM Preserv Free 0.5mL Dosage Quadrivalent Influenza Split Virus Vaccine IM Preserv Free 0.5mL Dosage Quadrivalent 65033 ROCIO HUITRON Influenza Seasonal, injectable quadrivalent - preservative free; Series #: 1; .5 mL; IM; Left Arm; [employer]: [employer]; Lot: [id number]; VIS given (Luis E: 10/12/2014). [facility] Immunization Administration By Injection, One Vaccine Immunization Administration By Injection, One Vaccine 83361 ROCIO HUITRON [facility] Immunization Administration By Injection, Each Additional Vaccine Immunization Administration By Injection, Each Additional Vaccine 04192 ROCIO HUITRON [facility] Tdap Vaccine Tdap Vaccine 63208 ROCIO HUITRON Tdap; Series #: 1; .5 mL; IM; Right Arm; Mfg: [employer]; Lot: [id number]; VIS given (Luis E: 05/01/14). [facility] Pneumococcal Conjugate Vaccine, 13-Valent, IM Use Pneumococcal Conjugate Vaccine, 13-Valent, IM Use 31683 018 ROCIO HUITRON Pneumococcal conjugate PCV 13; Series #: 1; .5 mL; IM; Right Arm; Mfg: Other; Lot: [id number]; VIS given (Luis E: 01/10/15). [facility] Vaccines Viral Measles, Mumps, Rubella, Varicella (Active) Vaccines Viral Measles, Mumps, Rubella, Varicella (Active) 09298 018 ROCIO HUITRON MMRV; Series #: 1; .5 mL; SC; Left Arm; Mfg: Merck; Lot: [id number]; VIS given (Luis E: 07/26/09). [facility] Psychiatric Diagnostic Evaluation Initial Psychiatric Diagnostic Evaluation Initial [id number] MIKE MCALLISTER [facility] Non-Physician Phone Call To Patient/Provider Brief (5-10min) Non-Physician Phone Call To Patient/Provider Brief (5-10min) [id number] WILLIAM DELGADO [facility] Echocardiogram Transthoracic 2-D During Stre Test Echocardiogram Transthoracic 2-D During Stress Test 80920 014 TAYLOR JONES [facility] Influenza Split Virus Vaccine 0.5mL Dosage Intramuscular 013 DANAY VARGHESE [facility] Immunization Administration By Injection, One Vaccine Immunization Administration By Injection, One Vaccine 20548 013 DANAY VARGHESE Immunization Administration By Injection, Each Additional Vaccine Immunization Administration By Injection, Each Additional Vaccine 64254 013 DANAY VARGHESE [facility] Vaccines Viral Yellow Fever Vaccines Viral Yellow Fever 94877 013 DANAY VARGHESE Yellow Fever; Series #: 1; .5 mL; SC; Left Arm; Mfg: Sanofi Paste[employer]; Lot: [id number]; VIS given (Luis E: 06/04/2010). [facility] Typhoid Vaccine Vi Capsular Polysaccharide, For Intramus Use Typhoid Vaccine Vi Capsular Polysaccharide, For Intramus Use 61704 DANAY JENSEN Typhoid, ViCPs; Series #: 1; .5 mL; IM; Left Arm; Mfg: Sanofi Paste[employer]; Lot: [id number]; VIS given (Luis E: 08/04/11). [facility] Hepatitis A And Hepatitis B (Intramuscular Use) Adult Dosage Hepatitis A And Hepatitis B (Intramuscular Use) Adult Dosage 40677 013 DANAY VARGHESE Hep A - Hep B (Twinrix); Series #: 1; 1.0 mL; IM; Right Arm; Mfg: [employer]; Lot: [id number]; VIS given (Luis E: 12/30/10; 04/19/11). [facility] All pota ium hydroxide (ernie) preparations 013 MABEL BECERRA Screening papanicolaou smear; obtaining, preparing and conveyance of cervical or vaginal smear to laboratory 013 MABEL BECERRA Wet betito, including preparations of vaginal, cervical or skin specimens 013 MABEL BECERRA [facility] Physician Supervised Specimen Handling / Transfer: Office To Lab Physician Supervised Specimen Handling / Transfer: Office To Lab [id number] 013 MABEL BECERRA [facility] Vaccine SARS-CoV-2 mRNA-LNP Kiko Protein Preservative Free 30mcg/0.3mL Diluent Reconstituted IM Vaccine SARS-CoV-2 mRNA-LNP Kiko Protein Preservative Free 30mcg/0.3mL [place] [address] [address]KS COVID-19 Talkbits; Series #: 1; 0.3 mL; IM; Left Arm; Mfg: [employer]; Lot: [id number]; VIS given (Luis E: 06/12/2020). [facility] Protein Preservative Free 30mcg/0.3[place] [address] [address] HERN[address]NDEZ COVID-19 Pfizer; Series #: 2; 0.3 mL; IM; Left Arm; Mfg: Pfizer, Inc; Lot: [id number]; VIS given (Luis E: 02/06/2020). DoD Vacc SARS-CoV-2 mRNA-LNP Kiko Protein Preservative Free 30mcg/0.3mL Diluent Reconstituted IM Second Dose Vacc SARS-CoV-2 mRNA-LNP Kiko Protein Preservative Free 30mcg/0.3mL Diluent Reconstituted IM Second Dose [address] RD [place]ERN[place] DoD Social History Combined list of available smoking, tobacco, and other social history from Department of Defense and Veterans Affairs facilities. Social History Type Response Date Comment Sour e This section is an empty social history section. DoD
--- OUTSIDE RECORDS SUMMARY | 2024-04-19 08:09 | XMS_ITS | Patient Health Record ---
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
[2024-04-19 09:10] VITALS: BP 110/76; PULSE 81; RESP 18; TEMP 37.2; O2SAT 97; BMI 33.8
--- NOTE | 2024-04-19 09:10 | MHC.OFFWIV ---
Intake Vital Signs 04/19/24 09:10 Height 5 ft 7 in Weight 216 lb BMI 33.8 BP 110/76 Blood Pressure Location Lt brachial Position Sitting Respiration 18 Pulse 81 Pulse Source Pulse Oximeter Temp 99.0 F Temp Source Oral Pulse Oximetry (%) 97 Oxygen Delivery Method Room Air Intake Visit Reasons: EP-pain rt side stomach, nauseous Intake Note: Pt is here today for a walk in visit. Pt c/o R side abdominal pain and nausea. Pt states that Wednesday she was vomiting. Patient Tobacco Use Status: Former Tobacco user Allergies No Known Allergies Allergy (Verified 04/19/24 09:14) Do you need a note to return to daycare/school/sports/work: Yes HPI HPI Comments History of Present Illness Details History of Present Illness - The patient is a 54-year-old female presenting with acute nausea, vomiting and fatigue. - Onset was sudden, beginning with fatigue last Wednesday (5 days ago), and progressed to severe and continuous vomiting by Wednesday. - Vomiting persisted violently until early Wednesday morning, with no other gastrointestinal symptoms reported except for abdominal muscle strain. - No fever or diarrhea accompanying the emesis was stated, and COVID test results were negative. - The patient retained small portions of bland foods with difficulty, experiencing intervals of relief between vomiting episodes. - Implemented hydration efforts were met with challenges. - Concern for virus transmission to others within the household and workplace was noted, with queries on appropriate hygiene practices. Physical Exam General: Cooperative, healthy appearing, comfortable, no acute distress and well developed Orientation: Patient oriented x3 Limitations: No limitations Head: Normal to inspection Ears: Hearing grossly normal bilaterally Nose: Normal external nose present Face and sinus: Normal facial exam Eyes: Appearance normal, both eyes and all related structures Neck: Normal visual inspection and Yes full ROM Respiratory: Normal respiratory effort and able to speak in complete sentences. Clear to auscultation bilaterally Cardiovascular: Regular rate and rhythm. Normal S1 and S2 GI: normoactive bowel sounds, soft, non TTP Skin: No rashes or lesions noted Neuro: Patient oriented x3 Extremities: Normal to inspection [facility] Medical History Depression with anxiety GERD (gastroesophageal reflux disease) Multiple sclerosis Surgical History H/O tubal ligation Hx of discectomy H/O spinal fusion Family History Daughter Mental health disorder Social History Household Members: None Both parents involved: No Caregiver staying overnight: No Housing: House Are you a primary resident care director to a significant other at home: No Do you presently have visiting nurse or other home services: No 75 years or older and lives alone: No Alcohol intake: current Alcohol intake frequency: holidays/special occasions only Alcohol type: wine Patient Tobacco Use Status: Former Tobacco user e-Cigarette/Vaping Use: Never Used service: Yes Current occupational status: employed Current occupation: [employer] Cognitive needs: No Hearing needs: Yes (wears hearing aids for tinnitis) Vision needs: Yes (Patient wears glasses.) Review of Systems Const All systems reviewed & are unremarkable except as noted in HPI and below Physical Exam Vital Signs: Last Vital Signs Temp 99.0 F 04/19/24 09:10 Pulse 81 04/19/24 09:10 Resp 18 04/19/24 09:10 BP 110/76 04/19/24 09:10 Pulse Ox 97 04/19/24 09:10 Oxygen Delivery Method Room Air 04/19/24 09:10 BMI result Body Mass Index 33.8 Assessment & Plan Assessment & Plan (1) Viral gastroenteritis: Code(s): A08.4 - Viral intestinal infection, unspecified Plan: VSS, pt well appearing, PE unremarkable. The patient has been diagnosed with acute gastroenteritis, likely due to a viral etiology, such as norovirus. Supportive management includes ensuring adequate hydration with electrolytes and water, consideration of antiemetics if necessary, and avoiding NSAIDs to prevent stomach irritation. Muscle strain related to the frequent emetic events should be managed with rest and suitable analgesics. Hygienic measures to limit the spread of the suspected viral infection were discussed, emphasizing the use of bleach disinfectants and thorough hand washing with soap. A medical leave note was issued to prevent workplace transmission, especially among vulnerable coworkers and family members. Patient was informed and verbally consented to the use of an ambient scribe for clinic note documentation during this visit. Coding Level of Care Code Est Pt Level 3 (09268) Diagnoses Viral gastroenteritis A08.4
== END 2024-04-19 09:34 | disposition home or self-care (01) ==
PROVIDERS: PCP Family Medicine; Visit Provider Physician Assistant
DX: A08.4 Viral intestinal infection, unspecified (principal)

== ENCOUNTER → 2024-04-19 08:04 | Outpatient (BNVA) | payer OTHER, SELFPAY | PROVIDERS: PCP Family Medicine | DX: A08.4 Viral intestinal infection, unspecified (principal) | CPT/HCPCS: 99212 ==

== ENCOUNTER 2024-05-03 08:02 | Outpatient (AMB) | payer OTHER, SELFPAY ==
[2024-05-03 08:03] VITALS: BP 118/68; PULSE 74; O2SAT 95; BMI 33.0
--- NOTE | 2024-05-03 08:03 | MHC.OFFVIS ---
Vital Signs 05/03/24 08:03 Height 5 ft 7 in Weight 210 lb 8 oz BMI 33.0 BP 118/68 Blood Pressure Location Lt brachial Position Sitting Pulse 74 Pulse Source Pulse Oximeter Pulse Oximetry (%) 95 Oxygen Delivery Method Room Air Intake Visit Reasons: 09/01 LVM+Let INP-WEN/Multiple Sclerosis Intake Note: patient referred by Dr. Castaneda for MS Allergies No Known Allergies Allergy (Verified 05/03/24 08:09) HPI Comments Details: 54y/o female with Multiple Sclerosis comes for sleep evaluation. she was diagnosed with MS 5-6 years ago in [place] - she had heat intolerance and had falls. MRI showed some MS changes which did not change . she is not any medications now . Her repeat MRI 2 years ago did not show any changes . LP was normal but had post LP headache. she was trialed on Avonex but did not tolerate. Main complaints-snoring, witnessed apneas, gasping arousals, sleep paralysis ? ( usually during stress , she also feels like someone is in the room) Sleep questionnaire- Difficulty falling asleep-no Difficulty staying asleep-yes Number of arousals-2 Snoring-yes Witnessed apneas-yes Gasping arousals-yes Nocturia-no GERD-yes Vivid dreams-yes Acting out dreams -no Abnormal behavior in sleep-/no ABnormal movements in sleep-yes Morning headaches-yes Excessive daytime sleepiness-yes Daytime naps- yes restless legs- no Hallucinations- no sleep paralysis- no Drop attacks- no Sleep study-yno Sleep Hygiene- Sleep time- 9pm Wake time - 4.30 am coffee/stimulant use- 1 cup Phone Electronics use-checks the news Exercise- yes Bedroom comfort-yes [facility] Medical History (Updated 05/03/24 @ 08:28 by Marion Harvey MD) Multiple sclerosis Nocturnal leg movements Witnessed episode of apnea Snoring Depression with anxiety GERD (gastroesophageal reflux disease) Multiple sclerosis Surgical History H/O tubal ligation Hx of discectomy H/O spinal fusion Family History Daughter Mental health disorder Social History Household Members: None Both parents involved: No Caregiver staying overnight: No Housing: House Are you a primary animal care attendant to a significant other at home: No Do you presently have visiting nurse or other home services: No 75 years or older and lives alone: No Alcohol intake: current Alcohol intake frequency: holidays/special occasions only Alcohol type: wine Patient Tobacco Use Status: Former Tobacco user e-Cigarette/Vaping Use: Never Used service: Yes Current occupational status: employed 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 [employer] Cognitive needs: No Hearing needs: Yes (wears hearing aids for tinnitis) Vision needs: Yes (Patient wears glasses.) Physical Exam Vital Signs: Last Vital Signs Pulse 74 05/03/24 08:03 BP 118/68 05/03/24 08:03 Pulse Ox 95 05/03/24 08:03 Oxygen Delivery Method Room Air 05/03/24 08:03 BMI result Body Mass Index 33.0 Const General: cooperative, healthy appearing and comfortable Nutritional Appearance: overweight Orientation/consciousness: patient oriented x3 Eyes Pupils: Equal, round and reactive pupils present Neuro Other: Mallampatti grade 4 Neck- decreased range of motion General: patient oriented x3, gait normal, tone normal, moves all extremities and no focal motor deficits Cranial nerves: Yes Facial sensation intact/muscles of mastication intact, Yes Equal, round and reactive pupils present, Yes Bilaterally intact EOM present, Yes Nystagmus not present, Yes Normal facial strength present, Yes Midline tongue present and Yes Symmetric palate elevation present Cognition (Neuro): normal cognition Gait exam (Neuro): Normal gait present Motor exam (neuro): 5/5 motor strength present throughout and Normal motor muscle tone present throughout Deep tendon reflexes (DTR's): Right triceps reflex intensity grade: 2+, Left triceps reflex intensity grade: 2+, Rt Biceps (C5, C6): 2+, Left biceps reflex intensity grade: 2+, Right brachioradialis reflex intensity grade: 2+, Left brachioradialis reflex intensity grade: 2+, Right patellar reflex intensity grade: 2+ and Left patellar reflex intensity grade: 2+ Coordination: [id number] test normal Assessment & Plan Assessment & Plan (1) Snoring: Code(s): R06.83 - Snoring Category: Medical (2) Witnessed episode of apnea: Code(s): R06.81 - Apnea, not elsewhere classified Category: Medical (3) Nocturnal leg movements: Code(s): R25.8 - Other abnormal involuntary movements Category: Medical (4) Multiple sclerosis: Code(s): G35 - Multiple sclerosis Category: Medical Plan I will evaluate her with an in lab sleep study to r/o sleep apnea, sleep related movement disorders, parasomnias MRI brain to evaluate MS Refer to [facility] center for further management of MS Orders: Orders RT PSG in-lab sleep study 05/03/24 R06.81 - Apnea, not elsewhere classified, R06.83 - Snoring, R25.8 - Other abnormal involuntary movements MR head/brain wo/w con 05/03/24 G35 - Multiple sclerosis Referrals Neurology Referral G35 - Multiple sclerosis Coding Level of Care Code New Pt Level 4 (99109) Diagnoses Snoring R06.83 Witnessed episode of apnea R06.81 Nocturnal leg movements R25.8 Multiple sclerosis G35 [place] Sleepiness Scale Questions Sitting and reading: slight chance of dozing Watching TV: slight chance of dozing Sitting inactive in a theater, movie etc.: moderate chance of dozing As a passenger in a car for an hour without break: moderate chance of dozing Lying down in the afternoon when circumstances permit: high chance of dozing Sitting and talking to someone: slight chance of dozing Sitting quietly after lunch without alcohol: high chance of dozing In a car, while stopped for a few minutes in the traffic: would never doze ESS < 10: normal, ESS > 12: pathologic: 13
--- OUTSIDE RECORDS SUMMARY | 2024-05-03 08:12 | XMS_ITS | Patient Health Record ---
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
--- OUTSIDE RECORDS SUMMARY | 2024-05-03 08:13 | XMS_ITS | Continuity of Care Document ---
Author Name [facility] Organization [facility] Care Team Providers Care Strategic Partnership Specialist Name Role Phone [facility] Unavailable Unavailable Problems Combined list of problems [...] Condition DoD Low back pain Active Condition [facility] Strain of muscle, fascia and tendon of other parts of biceps, right arm Active Condition [facility] depression with anxiety Active Condition [facility] anxiety Active Condition DoD visit for: screening exam Inactive Condition DoD atypical chest pain Inactive Condition D oD Administrative Evaluation Services Inactive Condition DoD visit for: examination Inactive Condition [facility] visit for: administrative purpose Inactive Condition [facility] Patient Counseling: Inactive Condition D oD visit for: services physical Inactive Condition DoD Need For Vaccination Against Influenza Inactive Condition DoD Need For Vaccination Hepatitis A And Hepatitis B Inactive Condition DoD Need For Vaccination Yellow Fever Inactive Condition DoD Need For Vaccination Typhoid Inactive Condition [facility] visit for: screening exam for malignant neoplasm cervix Inactive Condition [facility] routine gynecological exam with cervical pap smear Inactive Condition [facility] Medications Combined list of outpatient medications from Department of Defense and Veterans Affairs facilities.Medications provided include 1) outpatient medications from the last 15 months, and 2) patient-reported medications. Medication Details Route Status Patient Instructions Prescription Expires Prescription Number Last Dispense Date Ordering Provider Order Date Order Qty Source COMIRNATY [id number] (COVID vac 2022- (12 yr and up) XBB.1.5 (raxtozinam clement)/PF), 30 MCG/0.3, VIAL, INTRAMUSC, PFIZER US PHARM, .3 ml VIAL Active [id number] 2023 0.3 Pharmac y Data Transac tion Service Facilit y ESCITALOPRA M OXALATE (escitalopr am oxalate), 20 MG, TABLET, ORAL, [employer] 90 ea. BOTTLE Active [id number] 4 2023 90 Pharmac y Data Transac tion Service Facilit y ESCITALOPRA M OXALATE (escitalopr am oxalate), 20 MG, TABLET, ORAL, [employer], 100 ea. BOTTLE Active [id number] 4 2023 90 Pharmac y Data Transac tion Service Facilit y ESCITALOPRA M OXALATE (escitalopr am oxalate), 20 MG, TABLET, ORAL, [employer], 100 ea. BOTTLE Cancele d [id number] : 2023 0 Pharmac y Data Transac tion Service Facilit y FAMOTIDINE (FAMOTIDINE ), 40MG, TABLET, ORAL, [employer], 100 ea. BOTTLE Active [id number] 2023 90 Pharmac y Data Transac tion Service Facilit y FAMOTIDINE (FAMOTIDINE ), 40MG, TABLET, ORAL, [employer], 100 ea. BOTTLE Cancele d [id number] : 2023 0 Pharmac y Data Transac tion Service Facilit y OSELTAMIVIR PHOSPHATE (oseltamivi r phosphate), 75 MG, CAPSULE, ORAL, AMNEAL PHARMACE, 10 ea. BLIST PACK Active [id number] 3 2023 10 Pharmac y Data Transac tion Service Facilit y SHINGRIX (varicella- zoster virus glycoprotei n E,rec/AS01B adjuvant/PF ), 50 MCG/0.5, KIT, INTRAMUSC, GLAXOSMITHK LINE, 1 ea. 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 Status Comments Source zoster recombinant 2023 () Not Given zoster recombina nt DoD COVID-19, mRNA, LNP-S, PF, 30 mcg/0.3 mL dose 2020 NZEOGU, [employer] [facility] (PFR) Not Given COVID-19, mRNA, LNP-S, PF, 30 mcg/0.3 mL dose DoD influenza, injectable, quadrivalent, preservative free 2020 NZEOGU, () Not Given influenza , injectabl e, quadrival ent, preservat sadiq free DoD SARS-COV-2 (COVID-19) vaccine, mRNA, spike protein, LNP, preservative free, 30 mcg/0.3mL dose [address] HERNÁNDEZ [id number] [employer] (PFR) complet ed SARS-COV- 2 (COVID-19 ) vaccine, mRNA, spike protein, LNP, preservat sadiq free, 30 mcg/0.3mL dose DoD SARS-COV-2 (COVID-19) vaccine, mRNA, spike protein, LNP, preservative free, 30 mcg/0.3mL dose 1 2020 TAMARA SPARKS [id number] [employer] (PFR) complet ed SARS-COV- 2 (COVID-19 ) vaccine, mRNA, spike protein, LNP, preservat sadiq free, 30 mcg/0.3mL dose DoD influenza, injectable, quadrivalent, preservative free 2019 NZEOGU, () Not Given influenza , injectabl e, quadrival ent, preservat sadiq free DoD measles, mumps, rubella, and varicella virus vaccine 1 2017 ROCIO HUITRON [id number] Merck (MSD) complet ed measles, mumps, rubella, and varicella virus vaccine DoD tetanus toxoid, reduced diphtheria toxoid, and acellular pertu is vaccine, adsorbed 1 2017 ROCIO HUITRON [id number] [place] [address] (SKB) complet ed tetanus toxoid, reduced diphtheri a toxoid, and acellular pertussis vaccine, adsorbed DoD pneumococcal conjugate vaccine, 13 valent 1 2017 ROCIO HUITRON N [id number] Other (OTH) complet ed pneumococ rubina conjugate vaccine, 13 valent DoD Influenza, injectable, quadrivalent, preservative free 1 2017 ROCIO HUITRON N [id number] 150 [employer] (SKB) complet ed Influenza , injectabl e, quadrival ent, preservat sadiq free DoD Influenza, seasonal, injectable, preservative free 7 2014 Unknown, Provider [id number] [employer], [employer]. (CSL) complet ed Influenza , seasonal, injectabl e, preservat sadiq free DoD measles, mumps and rubella virus vaccine 1 2014 [id number] Merck (MSD) complet ed measles, mumps and rubella virus vaccine DoD typhoid Vi capsular polysaccharid e vaccine 1 2014 [id number] 101 Sanofi Pasteur (PMC) complet ed typhoid Vi capsular polysacch aride vaccine DoD Influenza, seasonal, injectable 1 2013 141 Transcribed (TRS) complet ed Influenza , seasonal, injectabl e DoD hepatitis B vaccine, adult dosage 3 2012 [id number] 43 [employer] (SKB) complet ed hepatitis B vaccine, adult dosage DoD Influenza, injectable, Madin Walnut Canine Kidney, preservative free 1 2012 [id number] 153 [employer]. (NOV) complet ed Influenza , injectabl e, Madin Tori Canine Kidney, preservat sadiq free DoD influenza virus vaccine, whole virus 1 2012 DANAY VARGHESE [id number] 16 Sanofi Pasteur (PMC) complet ed influenza virus vaccine, whole virus DoD yellow fever vaccine 1 2012 DANAY VARGHESE [id number] Sanofi Pasteur (PMC) complet ed yellow fever vaccine DoD typhoid vaccine, unspecified formulation 1 2012 91 Transcribed (TRS) complet ed typhoid vaccine, unspecifi ed formulati on DoD typhoid Vi capsular polysaccharid e vaccine 1 2012 DANAY VARGHESE [id number] 101 Sanofi Pasteur (PMC) complet ed typhoid Vi capsular polysacch aride vaccine DoD hepatitis A and hepatitis B vaccine 1 2012 DANAY VARGHESE [id number] 104 Smithine (SKB) complet ed hepatitis A and hepatitis B vaccine DoD seasonal influenza, intradermal, preservative free 0 2012 [id number] 1A 144 Sanofi Pasteur ([facility]) complet ed seasonal influenza , intraderm al, preservat sadiq free DoD influenza nasal, unspecified formulation 1 2012 151 Transcribed (TRS) complet ed influenza nasal, unspecifi ed formulati on DoD influenza virus vaccine, split virus (incl. purified surface antigen)-reti red CODE 0 2009 [id number] 15 [employer]. ([facility]) complet ed influenza virus vaccine, split virus (incl. purified surface antigen)- retired CODE DoD hepatitis A and hepatitis B vaccine 1 2009 [id number] 104 [facility] ([facility]) complet ed hepatitis A and hepatitis B vaccine DoD tuberculin skin test; purified protein derivative solution, intradermal 1 2006 Unknown, Provider [id number] Sanofi Pasteur ([facility]) complet ed tuberculi n skin test; purified protein derivativ e solution, intraderm al DoD tetanus and diphtheria toxoids, adsorbed, preservative free, for adult use (2 Lf of tetanus toxoid and 2 Lf of diphtheria toxoid) 1 2006 [id number] 09 Sanofi Pasteur ([facility]) complet ed tetanus and diphtheri a toxoids, adsorbed, preservat sadiq free, for adult use (2 Lf of tetanus toxoid and 2 Lf of diphtheri a toxoid) DoD poliovirus vaccine, inactivated 1 2006 [id number] 10 Sanofi Pasteur ([facility]) complet ed polioviru s vaccine, inactivat ed DoD influenza virus vaccine, split virus (incl. purified surface antigen)-reti red CODE 1 2006 [id number] 15 [facility] ([facility]) complet ed influenza virus vaccine, split [...] (incl. purified surface antigen)-reti red CODE 0 [id number] 15 Mariza (WAL) complet ed influenza virus [...] ADM Date DC Date Status Disposition Source [facility](P [place] T[facility]) OUTPATIENT [id number] ANNUAL PAP [id number] MABEL BECERRA 07/02 Released w/o Limitations [facility](MHP [place] T1) [facility](Immuniz ation [place]) OUTPATIENT [id number] Notes Entered by: HECTOR SAM 05 Jul 2012 0710 ------- ------- ------- ------- -- DANAY Serrato 07/05 Released w/o Limitations [facility](Imm unizati on [place]) [facility](Immuniz ation [place]) OUTPATIENT [id number] Notes Entered by: TIRSO CASTELAN P 08 Jul 2012 1317 ------- ------- ------- ------- -- Review VIRGIE CASTELAN 07/08 Released w/o Limitations [facility](Imm unizati on [place]) [facility] [place]) OUTPATIENT [id number] VALENTÍN Avila 07/15 Released w/o Limitations [facility](Dep loyment Health [place]) [facility] [place] T1) TELE CONSULT [id number] Notes Entered by: Adiel GARRIDO 17 Jul 2012 1737 ------- ------- ------- ------- -- T-CON - Lab Result STERLING STROUD 07/17 [facility] [place] T[facility]) [facility] [place] T[facility]) TELE CONSULT [id number] Notes Entered by: Farooq MC 25 Jul 2012 1118 ------- ------- ------- ------- -- Mail out/pap JUWAN MC JULYKAILYN 07/25 [facility] [place] T[facility]) [facility] [place] T[facility]) TELE CONSULT [id number] Notes Entered by: PATRICIA ANDERS 01 Jan 2013 1718 ------- ------- ------- ------- -- labs? PATRICIA POWERS 01/01 [facility] [place] T1) [facility] [place] T[facility]) OUTPATIENT [id number] [place] [employer] [place] MABEL Nunez 01/03 Released w/o Limitations [facility](MHP [place] T1) [facility](Emergen cy Medicine [facility]) OUTPATIENT [id number] LAURA ANGELASailaja 05/02 Released w/o Limitations [facility](Julia rgency Medicin e [place]) [facility](Cardiol ogy [place]) TELE CONSULT [id number] Notes Entered by: ENRIQUE LEUNG 05 May 2013 0856 ------- ------- ------- ------- -- DARCY instruc VEL Bowman 05/05 [facility](Car diology [place]) [facility](Cardiol ogy [place]) OUTPATIENT [id number] ECHO STRESS ANDREA AGUILAR 05/08 Released w/o Limitations [facility](Car diology [place]) [facility](M[facility] [place] T[facility]) OUTPATIENT [id number] F/U CARDIOL OGY TEST MABEL BECERRA 06/02 Released w/o Limitations [facility](MHP [place] T[facility]) [facility] [place] [facility]) OUTPATIENT [id number] anxiety issues, possibl e medicat ion MABEL BECERRA 12/19 Released w/o Limitations [facility](MHP [place] T1) [facility] [place] [facility]) OUTPATIENT [id number] follow up on anti anxiety med/ct ght loss MABEL BECERRA 03/22 Released w/o Limitations [facility](MHP [place] T1) [facility] [place] T[facility]) TELE CONSULT [id number] Notes Entered by: Adiel GARRIDO 29 Mar 2014 1830 ------- ------- ------- ------- -- T-CON - Lab results STERLING STROUD 03/29 [facility](MHP [place] T1) [facility] [place](Health Promotion [place]) TELE CONSULT [id number] Notes Entered by: JESUS LE 17 May 2014 1247 ------- ------- ------- ------- -- Tel referra l assess ent EMIGDIO SANABRIA 05/17 Other Not Elsewhere Classified [facility]He[facility] [place] [facility] [place] T[facility]) TELE CONSULT [id number] JANA CRISTIANA M 05/17 [facility] [place] [facility] [place](Health Promotion NMCP) TELE CONSULT [id number] Notes Entered by: JESUS LE 22 May 2014 1201 ------- ------- ------- ------- -- Attempt ed to call for referra l follow up EMIGDIO SANABRIA 05/22 Other Not Elsewhere Classified [facility](Hea lth Promoti on NMCP) [facility] [place](Health Promotion NM[facility]) TELE CONSULT [id number] Notes Entered by: JESUS LE 23 May 2014 1332 ------- ------- ------- ------- -- Referra l follow up-requ ests EMIGDIO Panchal pe 05/23 Other Not Elsewhere Classified [facility](Hea lth Promoti on NMCP) [facility] [place]([facility] [place] [facility]) OUTPATIENT [id number] F/U MABEL PHILLIPS 05/27 Released w/o Limitations [facility] [place] [facility] [place] [facility] [place] [facility]) TELE CONSULT [id number] Notes Entered by: WILLIAM DELGADO 11 Jun 2014 0944 ------- ------- ------- ------- -- Message from WILLIAM Brooks 06/11 Referred for Appointment [facility] [place] T[facility]) [facility]) OUTPATIENT [id number] bilater al foot swellin adiel PAIGE JAILYN S 06/18 Released with Work/Duty Limitations [facility]) OUTPATIENT [id number] f/u per Dr. Garcia from bilat foot swephillipin DENIA Fitch 06/19 Released w/o Limitations [facility]) [facility] [place] T1) TELE CONSULT [id number] Notes Entered by: ED NICOLE 03 Jul 2014 1146 ------- ------- ------- ------- -- Pt of Mrs. Becerra, out of depress ion medicat ion FAITH MORENO 07/03 Referred for Appointment [facility] [place] T[facility]) [facility] [place] [facility]) OUTPATIENT [id number] R FOOT INJURY X 2 DAYS CRISTIANA BATES 07/16 Released w/o Limitations [facility] [place] T[facility]) [facility](Neurolo gy [place]) OUTPATIENT [id number] spec MARLEY CRESPO 08/02 Released w/o Limitations [facility](Mariya rology NMCP) [facility] [place] [facility]) OUTPATIENT [id number] F/U FOR LEFT SIDE FACE PAIN CRISTIANA BATES 08/12 Released w/o Limitations [facility] [place] T1) [facility](Orthope dic [place]CP) OUTPATIENT [id number] LIMB PAIN FOOT AND TOES TAYLOR AMBROCIO 08/28 Released w/o Limitations [facility](Ort hopedic [place]) [facility] Referral [facility]) TELE CONSULT [id number] Notes Entered by: JENNY THOMAS 02 Oct 2014 1035 ------- ------- ------- ------- -- NETWORK RESULTS -ENT F/U-09/06- 82514 CRISTIANA BATES Rebekah 10/02 [facility] P Referra l [facility]) [facility] [place]([facility] [place] [facility]) OUTPATIENT [id number] BONE GROWTH IN MOUTH X4MTHS MABEL BECERRA 10/03 Released w/o Limitations [facility](MHP [place] T1) [facility] [place](Neurolo gy [place]) OUTPATIENT [id number] F/U MARLEY CRESPO 10/22 Released w/o Limitations [facility](Mariya rology NMCP) [facility](MHP [place] T1) OUTPATIENT [id number] F/U ANXIETY MABEL BECERRA 11/21 Released w/o Limitations [facility](MHP [place] T1) [facility] [place] [facility] [id number] PAP EXAM -1971 MABEL BECERRA 01/01 Released w/o Limitations [facility](MHP [place] T1) [facility](Neurolo gy NMCP) TELE CONSULT [id number] Notes Entered by: IVET CHACKO 12 Mar 2015 1140 ------- ------- ------- ------- -- Pt states that she needs a consult for an mri ZAK, MARLEY 03/12 [facility](Mariya rology NMCP) [facility] [place] T1) TELE CONSULT [id number] Notes Entered by: PROMISE JESUS 22 May 2015 0823 ------- ------- ------- ------- -- Med refill MABEL BECERRA 05/21 [facility] [place] T[facility]) [facility](Neurolo gy [place]) OUTPATIENT [id number] fol/up NICOLE CRESPOINE 06/17 Released w/o Limitations [facility](Mariya rology [place]) [place]) OUTPATIENT [id number] EST PCM- F/U Anxiety taking Wellbut rin EZEQUIEL HUTCHINSON 09/10 Released w/o Limitations [place] ([facility]) [facility] [place] T[facility]) TELE CONSULT [id number] Notes Entered by: FAITH MORENO 15 Oct 2015 0945 ------- ------- ------- ------- -- Pop [facility] FAITH MORENO 10/14 Referred for Appointment [facility] [place] [facility]PATIENT [id number] cough and congest ion x 8 days OTCs not working . bilater al ear ache EZEQUIEL HUTCHINSON 01/12 Released w/o Limitations [place] [place] [place] OUTPATIENT [id number] acid reflux symptom s EZEQUIEL HUTCHINSON 02/16 Released w/o Limitations [place] [place] [place] TELE CONSULT [id number] Notes Entered by: ANDREW KAHN 31 Mar 2016 1337 ------- ------- ------- ------- -- Refill bupropr ion JULITO KAHN 03/31 [place] [facility] [facility] [id number] med refill EZEQUIEL HUTCHINSON 04/16 Released with Work/Duty Limitations [place] [place] [place] TELE CONSULT [id number] Notes Entered by: EZEQUIEL HUTCHINSON 05 May 2016 1317 ------- ------- ------- ------- -- lab EZEQUIEL HUTCHINSON 05/05 [place] [employer] [facility] [place] [facility] OUTPATIENT [id number] MED REFILL EZEQUIEL HUTCHINSON 06/05 Released w/o Limitations [place]) [place] [facility] OUTPATIENT [id number] [facility] MED EZEQUIEL HUTCHINSON 10/22 Released w/o Limitations [place] [employer] [facility] [place] [employer] [facility] [employer]) OUTPATIENT [id number] L Forearm pain x 3 weeks EZEQUIEL HUTCHINSON 12/17 [place]ased w/o Limitations [place] Family [place] [employer]) [place] [facility] OUTPATIENT [id number] Med refill EZEQUIEL HUTCHINSON 02/22 Released w/o Limitations [place] Family [place] [facility]) [place] [id number] Notes Entered by: LAURYN NUNN ON N 05 Apr 2017 1042 ------- ------- ------- ------- -- MMRV, TD, PCV13, FLU SHOT BELLO CAPPS 04/05 [place]ased [place]/o Limitations [place] Immun[place] [employer] OUTPATIENT [id number] Med Refill EZEQUIEL HUTCHINSON 05/07 [place]ased w/o Limitations [place] [facility] [facility] [place] OUTPATIENT [id number] well woman exam EZEQUIEL HUTCHINSON 06/14 Released w/o Limitations [place] Case Manag[place]) TELE CONSULT [id number] Notes Entered by: Nestor MCALLISTER 27 Sep 2017 1230 ------- ------- ------- ------- -- CM follow up MIKE MCALLISTER 09/27 [place] Case [facility] [place] OUTPATIENT [id number] medicat ion refill nexium EZEQUIEL HUTCHINSON 12/22 Released w/o Limitations [place] [facility] [place] [place] OUTPATIENT [id number] ERIKA ALCAZAR 12/29 [place]ased w/o Limitations [place] [facility] (PR[facility]) [facility] TELE CONSULT [id number] Notes Entered by: EZEQUIEL HUTCHINSON 21 Jan 2018 1247 ------- ------- ------- ------- -- labs- elevate d TSH EZEQUIEL HUTCHINSON 01/21 [place] TELE CONSULT [id number] Notes Entered by: EZEQUIEL HUTCHINSON 26 Jan 2018 0912 ------- ------- ------- ------- -- pt in for thryoid check EZEQUIEL HUTCHINSON 01/26 [place] [place] OUTPATIENT [id number] 2 referra l for neuro f/u EZEQUIEL HUTCHINSON 02/04 Released w/o Limitations [place] [facility] [place] OUTPATIENT [id number] 3 bite by cat yesterd ay, cat not up to date on shots GAYLE, HY G 06/02 Released w/o Limitations [place] [facility] [place]) [facility]([employer] General NMCP) TELE CONSULT [id number] Notes Entered by: MARY CARMENCHARLENE LING 10 Oct 2018 1534 ------- ------- ------- ------- -- Medicin e refill MIYA LENTZ ANURADHA 10/10 [facility]([employer] General [place]CP) [place] Family [place] TELE CONSULT [id number] Notes Entered by: Farooq VALDERRAMA 30 Jan 2020 1311 ------- ------- ------- ------- -- med request patient from out of town BILLY VALDERRAMA 01/29 [place] Family [place]) [facility]([employer] NMCP) OUTPATIENT [id number] - Pain In Right Shoulde IVIS Berry 06/03 Released w/o Limitations [facility](Spo rts Ortho NMCP) [facility](Immuniz ation [place]) OUTPATIENT [id number] Notes Entered by: RAJAN IKM 12 Jun 2020 0928 ------- ------- ------- ------- -- 1ST DOSE COVID VACCINE . TAMARA SPARKS 06/12 Released w/o Limitations [facility](Imm unizati on [place]) [facility](Immuniz ation [place]) OUTPATIENT [id number] Notes Entered by: RAJAN KIM 04 Jul 2020 1257 ------- ------- ------- ------- -- 2ND DOSE COVID VACCINE CHRIS GLOVER 07/04 Released w/o Limitations [facility](Imm unizati on [place]) [facility] Outpatient Encounter [id number] Danika GOVEA 12/15 [facility] Outpatient Encounter [id number] 12/17 [facility] Outpatient Encounter [id number] 05/26 [facility] Outpatient Encounter [id number] 09/13 [facility] Outpatient Encounter [id number] 01/11 [facility] [place] [facility] Outpatient Encounter [id number] 04/11 [place] [facility] [place] [facility] Procedures Combined list of: 1) Procedures from Department of Veterans Affairs facilities going back up to thelast 18 months, not all [place] non-surgical procedures are included; 2) All procedures from the Department of Defense facilities. Procedure Procedure Type Code Date Perfomer Comments Sourc e DETERMINATION OF REFRACTIVE STATE 018 [facility] CASE MANAGEMENT, EACH [address] [facility] IMMUNIZATION ADMINISTRATION (INCLUDES PERCUTANEOUS, INTRADERMAL, SUBCUTANEOUS, OR INTRAMUSCULAR INJECTIONS); EACH ADDITIONAL VACCINE (SINGLE OR COMBINATION VACCINE/TOXOID) 018 [facility] PSYCHIATRIC DIAGNOSTIC EVALUATION 017 [facility] OTHER BILATERAL ENDOSCOPIC DESTRUCTION OR OCCLUSION OF FALLOPIAN TUBES 995 [facility] LAPAROSCOPY 995 DoD CULDOCENTESIS 995 DoD [...] 24 HR/SOON APT;5-10 MIN MED DIS 015 [facility] ECG,TRANSTHOR,RT,IMG DOC (2D),INC M-MODE REC,WHEN PERFORM,DUR REST&CV STRES TEST USE TREADMILL,BICYCLE EXERC &/PHARMACOLOGICALLY IND STRES,INT&REP;INC PERF,CONT ECG MON,W SUPERVIS,A PHYS/OTH QUAL HCP 014 [facility] ELECTROCARDIOGRAM, ROUTINE ECG WITH AT LEAST 12 LEADS; WITH INTERPRETATION AND REPORT [facility] HEPATITIS A AND HEPATITIS B VACCINE (HEPA-HEPB), ADULT DOSAGE, FOR INTRAMUSCULAR USE [facility] ALL POTASSIUM HYDROXIDE (ERNIE) PREPARATIONS 013 [facility] Determination Of Refractive State Determination Of Refractive State [id number] ERIKA THOMASON Ophthalmological New Patient Start Comprehensive Care Ophthalmological New Patient Start Comprehensive Care [id number] ERIKA THOMASON Case Management, each [address] [facility] Coordinated care fee, maintenance rate MIKE MCALLISTER Influenza Split Virus Vaccine IM Preserv Free 0.5mL Dosage Quadrivalent Influenza Split Virus Vaccine IM Preserv Free 0.5mL Dosage Quadrivalent 70103 ROCIO HUITRON Influenza Seasonal, injectable quadrivalent - preservative free; Series #: 1; .5 mL; IM; Left Arm; Briligg: CodeBaby; Lot: [id number]; VIS given (Luis E: 10/12/2014). [facility] Immunization Administration By Injection, One Vaccine Immunization Administration By Injection, One Vaccine [address] [facility] Immunization Administration By Injection, Each Additional Vaccine Immunization Administration By Injection, Each Additional Vaccine [address] [facility] Tdap Vaccine Tdap Vaccine 30192 ROCIO HUITRON Tdap; Series #: 1; .5 mL; IM; Right Arm; Mfg: CodeBaby; Lot: [id number]; VIS given (Luis E: 05/01/14). [facility] Pneumococcal Conjugate Vaccine, 13-Valent, IM Use Pneumococcal Conjugate Vaccine, 13-Valent, IM Use 93455 018 ROCIO HUITRON Pneumococcal conjugate PCV 13; Series #: 1; .5 mL; IM; Right Arm; Mfg: Other; Lot: [id number]; VIS given (Luis E: 01/10/15). [facility] Vaccines Viral Measles, Mumps, Rubella, Varicella (Active) Vaccines Viral Measles, Mumps, Rubella, Varicella (Active) 25184 018 ROCIO HUITRON MMRV; Series #: 1; .5 mL; SC; Left Arm; Mfg: Merck; Lot: [id number]; VIS given (Luis E: 07/26/09). [facility] Psychiatric Diagnostic Evaluation Initial Psychiatric Diagnostic Evaluation Initial [id number] [facility] Non-Physician Phone Call To Patient/Provider Brief (5-10min) Non-Physician Phone Call To Patient/Provider Brief (5-10min) [id number] [facility] Echocardiogram Transthoracic 2-D During Stre Test Echocardiogram Transthoracic 2-D During Stress Test [id number] [facility] Influenza Split Virus Vaccine 0.5mL Dosage Intramuscular [address] [facility] Immunization Administration By Injection, One Vaccine Immunization Administration By Injection, One Vaccine 95501 013 DANAY VARGHESE Immunization Administration By Injection, Each Additional Vaccine Immunization Administration By Injection, Each Additional Vaccine [address] [facility] Vaccines Viral Yellow Fever Vaccines Viral Yellow Fever 62898 013 DANAY VARGHESE Yellow Fever; Series #: 1; .5 mL; SC; Left Arm; Mfg: Sanofi Pasteur; Lot: [id number]; VIS given (Luis E: 06/04/2010). [facility] Typhoid Vaccine Vi Capsular Polysaccharide, For Intramus Use Typhoid Vaccine Vi Capsular Polysaccharide, For Intramus Use 38986 DANAY JENSEN Typhoid, ViCPs; Series #: 1; .5 mL; IM; Left Arm; Mfg: Sanofi Pasteur; Lot: [id number]; VIS given (Luis E: 08/04/11). [facility] Hepatitis A And Hepatitis B (Intramuscular Use) Adult Dosage Hepatitis A And Hepatitis B (Intramuscular Use) Adult Dosage 93962 013 DANAY VARGHESE Hep A - Hep B (Twinrix); Series #: 1; 1.0 mL; IM; Right Arm; Mfg: CodeBaby; Lot: [id number]; VIS given (Luis E: 12/30/10; 04/19/11). [facility] All pota ium hydroxide (ernie) preparations 013 MABEL BECERRA Screening papanicolaou smear; obtaining, preparing and conveyance of cervical or vaginal smear to laboratory 013 MABEL BECERRA Wet betito, including preparations of vaginal, cervical or skin specimens [address] [facility] Physician Supervised Specimen Handling / Transfer: Office To Lab Physician Supervised Specimen Handling / Transfer: Office To Lab [id number] [facility] Vaccine SARS-CoV-2 mRNA-LNP Kkio Protein Preservative Free 30mcg/0.3mL Diluent Reconstituted IM Vaccine SARS-CoV-2 mRNA-LNP Kiko Protein Preservative Free 30mcg/0.3[place] [address] TAMARA SPARKS COVID-19 [employer]; Series #: 1; 0.3 mL; IM; Left Arm; Mfg: Yesmail; Lot: [id number]; VIS given (Luis E: 06/12/2020). [facility] Vacc SARS-CoV-2 mRNA-LNP Kiko Protein Preservative Free 30mcg/0.3mL Diluent Reconstituted IM First Dose Vacc SARS-CoV-2 mRNA-LNP Kiko Protein Preservative Free 30mcg/0.3mL Diluent Reconstituted IM First Dose 0001A TAMARA SPARKS [facility] Vaccine SARS-CoV-2 mRNA-LNP Kiko Protein Preservative Free 30mcg/0.3mL Diluent Reconstituted IM Vaccine SARS-CoV-2 mRNA-LNP Kiko Protein Preservative Free 30mcg/0.3[place] [address] [address] HERN[address]NDEZ COVID-19 Pfizer; Series #: 2; 0.3 mL; IM; Left Arm; Mfg: Pfizer, Inc; Lot: [id number]; VIS given (Luis E: 02/06/2020). [facility] Vacc [...]
== END 2024-05-03 08:34 | disposition home or self-care (01) ==
PROVIDERS: PCP Family Medicine; Visit Provider Psychiatry & Neurology Neurology
DX: R06.83 Snoring (principal); R06.81 Apnea, not elsewhere classified; R25.8 Other abnormal involuntary movements; G35 Multiple sclerosis
CPT/HCPCS: 99204

== ENCOUNTER → 2024-05-03 08:02 | Outpatient (BNVA) | payer OTHER, SELFPAY | PROVIDERS: PCP Family Medicine; Visit Provider Psychiatry & Neurology Neurology | DX: R06.83 Snoring (principal); R06.81 Apnea, not elsewhere classified; R25.8 Other abnormal involuntary movements; G35 Multiple sclerosis | CPT/HCPCS: 99202 ==

== ENCOUNTER 2024-07-04 07:42 | Day surgery (SDC) | payer OTHER, SELFPAY ==
--- OUTSIDE RECORDS SUMMARY | 2024-05-04 13:59 | XMS_ITS | Patient Health Record ---
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
[2024-06-30 14:30] VITALS: BMI 34.5
--- NOTE | 2024-07-03 09:06 | HO.ANESPROP2 ---
Documented by User: Joanie Bowers NP 07/03/24 09:06 HPI - Anesthesia Eval Consult details Narrative: 54yo F for Upper Endoscopy and Colonoscopy Anesthesia Pre-Procedure Meds Is the patient on any of the following meds?: GLP1/DPP4 PMFSH Active Problems Active Problems: All Active Problems Viral gastroenteritis (Acute) Cystic acne (Acute) Screening for skin cancer (Acute) Elevated LDL cholesterol level (Acute) Elevated fasting glucose (Acute) Adult general medical exam (Acute) Encounter for well woman exam with routine gynecological exam (Acute) Obesity (Acute) Sleep apnea (Acute) Breast cancer screening by mammogram (Acute) Screening for cervical cancer (Acute) Screening for colon cancer (Acute) Multiple sclerosis (Acute) Nocturnal leg movements (Acute) Witnessed episode of apnea (Acute) Snoring (Acute) Hx of discectomy (Acute) GERD (gastroesophageal reflux disease) (Acute) Depression with anxiety (Acute) Multiple sclerosis (Acute) Past Medical History Medical History (Updated 06/30/24 @ 14:24 by Tonya Luna RN) Multiple sclerosis Nocturnal leg movements Witnessed episode of apnea Snoring GERD (gastroesophageal reflux disease) Depression with anxiety Family History Family History Daughter Mental health disorder Surgical History Surgical History H/O tubal ligation Hx of discectomy H/O spinal fusion Social History Social History Household Members: None Housing: House Are you a primary direct care supervisor to a significant other at home: No Do you presently have visiting nurse or other home services: No Alcohol intake: current Alcohol intake frequency: holidays/special occasions only Alcohol type: wine Patient Tobacco Use Status: Former Tobacco user e-Cigarette/Vaping Use: Never Used Use of substances other than those prescribed or required for medical reasons: No Are you DNR?: No Advance Directives: No Advance Directives Information Provided: Yes service: Yes Current occupational status: employed 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 [employer] Cognitive needs: No Hearing needs: Yes (wears hearing aids for tinnitis) Vision needs: Yes (Patient wears glasses.) Meds Allergies Allergy/AdvReac Type Severity Reaction Status Date / Time No Known Allergies Allergy Verified 07/04/24 07:53 Home Medications ?Medication ?Instructions ?Recorded ?Confirmed ?Last Taken ?Type semaglutide 1 mg/dose (2 mg/1.5 0.15 mg subcut QWEEK 04/11/24 07/04/24 06/25/24 History mL) subcutaneous pen injector Exam Height,Weight and Vital Signs: Height 5 ft 7 in Weight 99.79 kg Assessment and Plan Assessment Anesthesia Assessment: Chart Reviewed Documented by User: Jorge Lanier MD 07/04/24 09:24 [facility] Past Medical History Medical History (Updated 06/30/24 @ 14:24 by Tonya Luna RN) Multiple sclerosis Nocturnal leg movements Witnessed episode of apnea Snoring GERD (gastroesophageal reflux disease) Depression with anxiety Family History Family History Daughter Mental health disorder Family history of problems with anesthesia: No Surgical History Surgical History H/O tubal ligation Hx of discectomy H/O spinal fusion History of Problems with Anesthesia: No Social History Social History Household Members: None Housing: House Are you a primary direct care supervisor to a significant other at home: No Do you presently have visiting nurse or other home services: No Alcohol intake: current Alcohol intake frequency: holidays/special occasions only Alcohol type: wine Patient Tobacco Use Status: Former Tobacco user e-Cigarette/Vaping Use: Never Used Use of substances other than those prescribed or required for medical reasons: No Are you DNR?: No Advance Directives: No Advance Directives Information Provided: Yes service: Yes Current occupational status: employed 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 [employer] Cognitive needs: No Hearing needs: Yes (wears hearing aids for tinnitis) Vision needs: Yes (Patient wears glasses.) Meds Allergies Allergy/AdvReac Type Severity Reaction Status Date / Time No Known Allergies Allergy Verified 07/04/24 07:53 Home Medications ?Medication ?Instructions ?Recorded ?Confirmed ?Last Taken ?Type semaglutide 1 mg/dose (2 mg/1.5 0.15 mg subcut QWEEK 04/11/24 07/04/24 06/25/24 History mL) subcutaneous pen injector Exam Airway Mallampati Class: II TM Dist: <=3cm Neck ROM: Full Loose/Missing/Broken Teeth: No Heart: ok Lungs: ok Assessment and Plan Assessment Anesthesia Assessment: Anesthesia Plan Discussed Final Anesthetic Review Family History of Problems with Anesthesia: No History of Problems with Anesthesia: No NPO: Yes ASA Class: III Final Preanesthetic Review: No Changes in Pt Med Stat, Meds/Allgs Chart Reviewed, Consent Obtained/Reviewed and Anes Risks/Benef Reviewed Patient Risk: Intermediate Procedure Risk: Intermediate Anesthetic Plan Anesthetic Plan: Agree w/ Assess. and Plan and TIVA Disposition: Standard PACU
[2024-07-04 08:02] VITALS: BP 108/71; PULSE 67; RESP 18; TEMP 36.4; O2SAT 95; BMI 29.5
[2024-07-04] MEDS: Lactated Ringers 1,000 ML 100 ML IVCONT (08:20)
--- NOTE | 2024-07-04 08:40 | MHC.SHP ---
Pre-Procedural Eval Section A - 24 Hr Update-Section A only Date of Service: 07/04/24 Section B - Complete if H&P > 30 days Chief Complaint: Encounter for screening for malignant neoplasm of Relevant Family History (Specify if Yes): No Relevant Social History: None Present Medications: see Short Stay Collaborative assessment Medical History: Significant History (Multiple sclerosis Nocturnal leg movements Witnessed episode of apnea Snoring GERD (gastroesophageal reflux disease) Depression with anxiety) History of Previous Operations: Relevant previous surgery/procedure and date(s) (H/O tubal ligation Hx of discectomy H/O spinal fusion) Allergies: Allergies Allergy/AdvReac Type Severity Reaction Status Date / Time No Known Allergies Allergy Verified 07/04/24 07:53 Review of Systems Sugical H&P ROS: Negative: Constitution, Cardiovascular, Respiratory, Neurological, Psychiatric, Hem-Onc, Allergic/Immunologic, Gastrointestinal, Genitourinary, Musculoskeletal, Integumentary, Endocrine and Eyes/Ears/Nose/Throat Exam Surgical H&P Exam: Normal: HEENT, Normal: Heart, Normal: Lungs, Normal: Extremities, Normal: Abdomen, Normal: Skin and Normal: Neurological Plan Diagnosis/Plan: Unchanged I have reviewed the history and physical and performed a pertinent physical examination on my patient. No changes have occurred unless specified. Time Spent With Patient Time: Total time managing care of this patient today ____ minutes.
--- NOTE | 2024-07-04 10:01 | P.OPN-COLO_ITS ---
Colonoscopy Operative Note Operative Note Date of Service: 07/04/24 Narrative: Operative Information Procedure Description: EGD, Colonoscopy Indication: GERD, colo screening Anesthesia: MAC FLEXIBLE TRANSORAL UPPER GASTROINTESTINAL ENDOSCOPY AND COLONOSCOPY PROCEDURE NOTE UPPER ENDOSCOPY Consent: Indications for the procedure and potential complications of bleeding, perforation, reaction to medications and missed diagnosis were discussed with the patient and informed consent was obtained. Instrument: Olympus GIF H 190 J mid size upper endoscope Monitoring: Vital signs and clinical assessment, continuous EKG monitoring, Pulse oximetry, Carbon Dioxide monitoring and blood pressure monitoring were done throughout the procedure. Procedure: The patient was placed in the left lateral decubitis position and pre-procedure medications were administered and a bite block was placed. The endoscope was inserted into the mouth and advanced under direct vision to the third part of duodenum. A careful inspection was made as the upper endoscope was withdrawn including a retroflexed examination of the proximal stomach; Findings and interventions are described below. Findings: Larynx:normal Esophagus: GE junction at 42 cm, diaphragm hiatus at 42 cm, bogginess at GEJ, possible short segment barretts, bx taken from here and distal esophagus Stomach: Mild erythema. Biopsies were obtained. Grade 2 flap valve on retroflexed examination of the cardia. Duodenum: Normal bulb and descending duodenum, bx taken, small diverticulum noted in second part Intervention: Biopsies as noted above, COLONOSCOPY Instrument: Olympus variable stiffness pediatric scope 190L Colonoscopy Monitoring: Vital signs and clinical assessment, continuous EKG monitoring, Pulse oximetry, Carbon Dioxide monitoring and blood pressure monitoring were done throughout the procedure. Colon withdrawal time was 9 minutes. Procedure: The patient was placed in the left lateral decubitis position and pre-procedure medications were administered. After a digital rectal examination of the ano-rectum, the video colonoscope was inserted into the rectum and advanced through the colon to the cecum/TI. The colonoscope was slowly withdrawn in a retrograde panoramic fashion and the colon mucosa was carefully examined including a retroflexed view of the rectum. Findings and interventions are described below. Procedure Difficulty:moderate due to redundant colon Findings: Terminal Ileum-normal Cecum:normal Right sided retroflexion- normal Ascending Colon: normal Transverse Colon -normal Descending Colon:normal Sigmoid Colon: normal Rectum: Retroflexion with small internal hemorrhoids, grade 1 Anorectum - normal Colon preparation: [place] Bowel Preparation Scale Right colon; 3 Transverse colon: 3 Left colon; 3 (0 = Unprepared colon segment with mucosa not seen due to solid stool that cannot be cleared. 1 = Portion of mucosa of the colon segment seen, but other areas of the colon segment not well seen due to staining, residual stool and/or opaque liquid. 2 = Minor amount of residual staining, small fragments of stool and/or opaque liquid, but mucosa of colon segment seen well. 3 = Entire mucosa of colon segment seen well with no residual staining, small fragments of stool or opaque liquid) Impression and Post Procedure Diagnosis: Endoscopy Findings: possible barretts esophagitis gastritis Colonoscopy Findings: tortuous, redundant colon internal hemorrhoids Plan: Await Pathology results Repeat Colonoscopy in 10 years or earlier if clinically indicated High fiber diet leaflet avoid straining at stool, epsom salts and sitz bath, anusol supps or cream consider changing to PPi if ongoing GERD sx Above findings were reviewed with the patient and relevant handouts were provided if indicated.
[2024-07-04 10:07] VITALS: BP 92/52; PULSE 57; RESP 17; TEMP 36.3; O2SAT 98
[2024-07-04 10:22] VITALS: BP 91/52; PULSE 58; RESP 16; TEMP 36.8; O2SAT 99
== END 2024-07-04 10:53 | disposition home or self-care (01) ==
PROVIDERS: PCP Family Medicine; Visit Provider Internal Medicine Gastroenterology
PROC: (CPT 45378; principal; 2024-07-04 09:20)
DX: Z12.11 Encounter for screening for malignant neoplasm of colon (principal); K57.90 Diverticulosis of intestine, part unspecified, without perforation or abscess without bleeding; K64.0 First degree hemorrhoids; K21.9 Gastro-esophageal reflux disease without esophagitis; K29.50 Unspecified chronic gastritis without bleeding; K20.80 Other esophagitis without bleeding; K57.10 Diverticulosis of small intestine without perforation or abscess without bleeding; K44.9 Diaphragmatic hernia without obstruction or gangrene; G35 Multiple sclerosis; F41.9 Anxiety disorder, unspecified; R06.83 Snoring; R06.81 Apnea, not elsewhere classified; G47.61 Periodic limb movement disorder; Z79.85 Long-term (current) use of injectable non-insulin antidiabetic drugs; Z79.899 Other long term (current) drug therapy; Z98.890 Other specified postprocedural states; Z98.1 Arthrodesis status; Z87.891 Personal history of nicotine dependence
CPT/HCPCS: 45378; 43239; 88305; 88313; 88342; J2003; J2704; J3010

== ENCOUNTER → 2024-07-04 07:42 | Outpatient (BNV) | payer OTHER, SELFPAY | PROVIDERS: PCP Family Medicine; Visit Provider Internal Medicine Gastroenterology | DX: Z12.11 Encounter for screening for malignant neoplasm of colon (principal); K64.0 First degree hemorrhoids; Q43.8 Other specified congenital malformations of intestine; K21.00 Gastro-esophageal reflux disease with esophagitis, without bleeding; K29.70 Gastritis, unspecified, without bleeding | CPT/HCPCS: 43239; 45378 ==

== ENCOUNTER 2024-07-18 07:50 | Outpatient (AMB) | payer OTHER, SELFPAY ==
--- OUTSIDE RECORDS SUMMARY | 2024-07-18 07:54 | XMS_ITS | Patient Health Record ---
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
--- OUTSIDE RECORDS SUMMARY | 2024-07-18 07:54 | XMS_ITS | Continuity of Care Document ---
Author Name [facility] Organization [facility] Care Team Providers Care Studio Artist Name Role Phone [facility] Unavailable Unavailable Problems Combined list of problems [...] Condition DoD Low back pain Active Condition [facility] Strain of muscle, fascia and tendon of other parts of biceps, right arm Active Condition [facility] DEPRESSION WITH ANXIETY Active Condition [facility] anxiety Active Condition DoD visit for: screening exam Inactive Condition DoD ATYPICAL CHEST PAIN Inactive Condition D oD Administrative Evaluation Services Inactive Condition DoD visit for: examination Inactive Condition [facility] visit for: administrative purpose Inactive Condition [facility] Patient Counseling: Inactive Condition D oD visit for: services physical Inactive Condition [facility] Vaccines Prophylactic Need Against Influenza Inactive Condition DoD Need For Vaccination Hepatitis A And Hepatitis B Inactive Condition DoD Need For Vaccination Yellow Fever Inactive Condition DoD Need For Vaccination Typhoid Inactive Condition [facility] visit for: screening exam for malignant neoplasm cervix Inactive Condition [facility] ROUTINE GYNECOLOGICAL EXAM WITH CERVICAL PAP SMEAR Inactive Condition [facility] Medications Combined list of outpatient medications from Department of Defense and Veterans Affairs facilities.Medications provided include 1) outpatient medications from the last 15 months, and 2) patient-reported medications. Medication Details Route Status Patient Instructions Prescription Expires Prescription Number Last Dispense Date Ordering Provider Order Date Order Qty Source ESCITALOPRA M OXALATE (escitalopr am oxalate), 20 MG, TABLET, ORAL, CIPLA [employer] 90 ea. BOTTLE Active [id number] 2023 90 Pharmac y Data Transac tion Service Facilit y ESCITALOPRA M OXALATE (escitalopr am oxalate), 20 MG, TABLET, ORAL, [employer], 100 ea. BOTTLE Active [id number] 06/26/ 2024 90 Pharmac y Data Transac tion Service Facilit y ESCITALOPRA M OXALATE (escitalopr am oxalate), 20 MG, TABLET, ORAL, [facility] [facility], 100 ea. BOTTLE Cancele d [id number] : 2023 0 Pharmac y Data Transac tion Service Facilit y FAMOTIDINE (FAMOTIDINE ), 40MG, TABLET, ORAL, IVAX PHARMACEUT, 100 ea. BOTTLE Active [id number] 2023 90 Pharmac y Data Transac tion Service Facilit y Allergies, Adverse Reactions, Alerts Combined list of allergies from Department of Defense and Veterans Affairs facilities. It does not include entries that were removed or entered in error. Substance Category Reaction Severity Reaction type Status Date Reported Comments Source No Known Allergies Drug allergy (disorder) active 3 [facility] Immunizations Combined list of available immunizations from the Department of Defense and Veterans Affairs facilities. 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 Comments Source zoster recombinant 2023 () Not Given zoster recombina nt DoD COVID-19, mRNA, LNP-S, PF, 30 mcg/0.3 mL dose 2020 NZEOGU, [employer] [place] (PFR) Not Given COVID-19, mRNA, LNP-S, PF, 30 mcg/0.3 mL dose [facility] influenza, injectable, quadrivalent, preservative free 2020 NZEOGU, () Not Given influenza , injectabl e, quadrival ent, preservat sadiq free [facility] SARS-COV-2 (COVID-19) vaccine, mRNA, spike protein, LNP, preservative free, 30 mcg/0.3mL dose [address] HERNÁNDEZ [id number] [employer], [employer] (PFR) complet ed SARS-COV- 2 (COVID-19 ) vaccine, mRNA, spike protein, LNP, preservat sadiq free, 30 mcg/0.3mL dose DoD SARS-COV-2 (COVID-19) vaccine, mRNA, spike protein, LNP, preservative free, 30 mcg/0.3mL dose 1 2020 TAMARA SPARKS [id number] 208 [employer], Inc (PFR) complet ed SARS-COV- 2 (COVID-19 ) vaccine, mRNA, spike protein, LNP, preservat sadiq free, 30 mcg/0.3mL dose DoD influenza, injectable, quadrivalent, preservative free 2019 NZEOGU, () Not Given influenza , injectabl e, quadrival ent, preservat sadiq free DoD measles, mumps, rubella, and varicella virus vaccine 1 2017 ROCIO HUITRON [id number] 94 Merck (MSD) complet ed measles, mumps, rubella, and varicella virus vaccine DoD tetanus toxoid, reduced diphtheria toxoid, and acellular pertu is vaccine, adsorbed 1 2017 ROCIO HUITRON [id number] 115 SmithKline (SKB) complet ed tetanus toxoid, reduced diphtheri a toxoid, and acellular pertussis vaccine, adsorbed DoD pneumococcal conjugate vaccine, 13 valent 1 2017 ROCIO HUITRON [id number] 133 Other (OTH) complet ed pneumococ rubina conjugate vaccine, 13 valent DoD Influenza, injectable, quadrivalent, preservative free 1 2017 ROCIO HUITRON [id number] 150 SmithKline (SKB) complet ed Influenza , injectabl e, quadrival ent, preservat sadiq free DoD Influenza, seasonal, injectable, preservative free 7 2014 Unknown, Provider [id number] [employer], Inc. (CSL) complet ed Influenza , seasonal, injectabl e, preservat sadiq free DoD measles, mumps and rubella virus vaccine 1 2014 [id number] Merck (MSD) complet ed measles, mumps and rubella virus vaccine DoD typhoid Vi capsular polysaccharid e vaccine 1 2014 [id number] 101 Sanofi Pasteur (PMC) complet ed typhoid Vi capsular polysacch aride vaccine DoD Influenza, seasonal, injectable 1 2013 141 Transcribed (TRS) complet ed Influenza , seasonal, injectabl e DoD hepatitis B vaccine, adult dosage 3 2012 [id number] 43 SmithKline (SKB) complet ed hepatitis B vaccine, adult dosage DoD Influenza, injectable, Madin Tori Canine Kidney, preservative free 1 2012 [id number] 153 Novartis Pharmaceutica l Viktoria. (NOV) complet ed Influenza , injectabl e, Madin Tori Canine Kidney, preservat sadiq free DoD influenza virus vaccine, whole virus 1 2012 DNAAY VARGHESE [id number] 16 Sanofi Pasteur (PMC) complet ed influenza virus vaccine, whole virus DoD yellow fever vaccine 1 2012 DANAY VARGHESE [id number] Sanofi Pasteur (PMC) complet ed yellow fever vaccine DoD typhoid vaccine, unspecified formulation 1 2012 91 Transcribed (TRS) complet ed typhoid vaccine, unspecifi ed formulati on DoD typhoid Vi capsular polysaccharid e vaccine 1 2012 DANAY VARGHESE [id number] 101 Sanofi Pasteur (PMC) complet ed typhoid Vi capsular polysacch aride vaccine DoD hepatitis A and hepatitis B vaccine 1 2012 DANAY VARGHESE [id number] 104 Retrieve[employer] (SKB) complet ed hepatitis A and hepatitis B vaccine DoD seasonal influenza, intradermal, preservative free 0 2012 [id number] [id number] 144 Sanofi Pasteur (PMC) complet ed seasonal influenza , intraderm al, preservat sadiq free DoD influenza nasal, unspecified formulation 1 2012 151 Transcribed (TRS) complet ed influenza nasal, unspecifi ed formulati on DoD influenza virus vaccine, split virus (incl. purified surface antigen)-reti red CODE 0 2009 [id number] 15 Xigen, Inc. (MED) complet ed influenza virus vaccine, split virus (incl. purified surface antigen)- retired CODE DoD hepatitis A and hepatitis B vaccine 1 2009 [id number] 104 Razor InsightsKline (SKB) complet ed hepatitis A and hepatitis B vaccine DoD tuberculin skin test; purified protein derivative solution, intradermal 1 2006 Unknown, Provider [id number] 96 Sanofi Pasteur (PMC) complet ed tuberculi n skin test; purified protein derivativ e solution, intraderm al DoD tetanus and diphtheria toxoids, adsorbed, preservative free, for adult use (2 Lf of tetanus toxoid and 2 Lf of diphtheria toxoid) 1 2006 [id number] 09 Sanofi Pasteur (PMC) complet ed tetanus and diphtheri a toxoids, [...] red CODE 1 2006 [id number] 15 [facility] (SKB) complet ed influenza virus vaccine, split virus [...] (incl. purified surface antigen)-reti red CODE 0 [id number] 15 Mariza (NEHEMIAH) complet ed influenza virus vaccine, split virus (incl. purified surface antigen)- retired CODE DoD typhoid vaccine, parenteral, other than acetone-kille d, dried 0 1997 [id number] 41 Sanofi Pasteur ([facility]) complet ed typhoid vaccine, parentera l, other [...] ADM Date DC Date Status Disposition Source [facility] [place] [place] [facility] OUTPATIENT [id number] ANNUAL PAP [id number] MABEL BECERRA 07/02 Released w/o Limitations [facility] [place] [facility]) [facility] [place] [facility](Immuniz [facility]ion [place]) OUTPATIENT [id number] Notes Entered by: HECTOR SAM 05 Jul 2012 0710 ------- ------- ------- ------- -- DANAY Serrato 07/05 Released w/o Limitations [facility] [place] OUT[facility] [id number] Notes Entered by: TIRSO CASTELAN P 08 Jul 2012 1317 ------- ------- ------- ------- -- Review VIRGIE CASTELAN 07/08 [facility]ased w/o Limitations [facility] [place]) [facility] [place](Deploy ent [facility] [place]) OUTPATIENT [id number] VALENTÍN Avila 07/15 Released w/o Limitations [facility](Dep loyment [facility] [place]) [facility] [place] [facility] [place] [facility]) TELE CONSULT [id number] Notes Entered by: Rahat GARRIDO 17 Jul 2012 1737 ------- ------- ------- ------- -- T-CON - Lab Result STERLING STROUD 07/17 [facility] [place] [facility]) [facility] [place] [facility] [place] [facility]) TELE CONSULT [id number] Notes Entered by: Farooq MC 25 Jul 2012 1118 ------- ------- ------- ------- -- Mail out/pap JUWAN MC 07/25 [facility] [place] [facility]) [facility] [place] [facility]) TELE CONSULT [id number] Notes Entered by: PATRICIA ANDERS 01 Jan 2013 1718 ------- ------- ------- ------- -- labs? PATRICIA POWERS 01/01 [facility] [place] T[facility]) [facility] [place] [facility]) OUTPATIENT [id number] [place] [employer] ent MABEL BECERRA 01/03 Released w/o Limitations [facility] [place] [facility]) [facility](Emergen cy Medicine NMCP) OUTPATIENT [id number] TAYLA ANGELA 05/02 Released w/o Limitations [facility](Julia rgency Medicin e NMCP) [facility](Cardiol ogy NMCP) TELE CONSULT [id number] Notes Entered by: ENRIQUE LEUNG 05 May 2013 0856 ------- ------- ------- ------- -- VEL Frances 05/05 [facility](Car diology NMCP) [facility](Cardiol ogy NMCP) OUTPATIENT [id number] ECHO STRESS ANDREA AGUILAR 05/08 Released w/o Limitations [facility](Car diology NMCP) [facility](P [place] T1) OUTPATIENT [id number] F/U CARDIOL OGY TEST MABEL BECERRA 06/02 Released w/o Limitations [facility] [place] T[facility]) [facility](P [place] T1) OUTPATIENT [id number] anxiety issues, possibl e medicat ion MEGANMABEL Zara 12/19 Released w/o Limitations [facility] [place] T1) [facility](P [place] T1) OUTPATIENT [id number] follow up on anti anxiety med/ct ght loss MEGANMABEL S 03/22 Released w/o Limitations [facility](P [place] T1) [facility](P [place] T1) TELE CONSULT [id number] Notes Entered by: Rahat GARRIDO 29 Mar 2014 1830 ------- ------- ------- ------- -- T-CON - Lab results STERLING STROUD 03/29 [facility](P [place] T1) [facility](Health Promotion NMCP) TELE CONSULT [id number] Notes Entered by: JESUS LE 17 May 2014 1247 ------- ------- ------- ------- -- Tel referra l assessm ent EMIGDIO SANABRIA 05/17 Other Not Elsewhere Classified [facility] Promoti on NMCP) [facility](P [place] T1) TELE CONSULT [id number] CRISTIANA BATES 05/17 [facility](P [place] T1) [facility](Health Promotion NMCP) TELE CONSULT [id number] Notes Entered by: JESUS LE 22 May 2014 1201 ------- ------- ------- ------- -- Attempt ed to call for referra l follow up EMIGDIO SANABRIA 05/22 Other Not Elsewhere Classified [facility](Hea lth Promoti on NMCP) [facility](Health Promotion NMCP) TELE CONSULT [id number] Notes Entered by: JESUS LE 23 May 2014 1332 ------- ------- ------- ------- -- Refer l follow up-requ ests EMIGDIO Panchal pe 05/23 Other Not Elsewhere Classified [facility](a [facility] Promoti on NMCP) [facility] [place] T1) OUTPATIENT [id number] F/U ANXIETY MEGANMABEL Zara 05/27 Released w/o Limitations [facility] [place] T1) [facility](P [place] T1) TELE CONSULT [id number] Notes Entered by: WILLIAM DELGADO 11 Jun 2014 0944 ------- ------- ------- ------- -- Message from WILLIAM Brooks 06/11 Referred for Appointment [facility](P [place] T1) [facility] OUTPATIENT [id number] bilater al JAILYN Dawson 06/18 Released with Work/Duty Limitations [facility]) [facility]) OUTPATIENT [id number] f/u per Dr. Garcia from bilDENIA Ly 06/19 Released w/o Limitations [facility]) [facility](P [place] T1) TELE CONSULT [id number] Notes Entered by: ED NICOLE 03 Jul 2014 1146 ------- ------- ------- ------- -- Pt of Mrs. Becerra, out of depress ion medicat ion FAITH MORENO 07/03 Referred for Appointment [facility] [place] T1) [facility](P [place] T1) OUTPATIENT [id number] R FOOT INJURY X 2 DAYS CRISTIANA BATES Rebekah 07/16 Released w/o Limitations [facility] [place] T1) [facility](Neurolo gy NMCP) OUTPATIENT [id number] spec MARLEY CRESPO 08/02 Released w/o Limitations [facility](Mariya rology NMCP) [facility] [place] T1) OUTPATIENT [id number] F/U FOR LEFT SIDE FACE PAIN CRISTIANA BATES Rebekah 08/12 Released w/o Limitations [facility] [place] T1) [facility](Orthope dic NMCP) OUTPATIENT [id number] LIMB PAIN FOOT AND TOES TAYLOR AMBROCIO 08/28 Released w/o Limitations [facility](Ort hopedic NMCP) [facility](NMCP Referral [facility]) TELE CONSULT [id number] Notes Entered by: JENNY THOMAS 02 Oct 2014 1035 ------- ------- ------- ------- -- NETWORK RESULTS -ENT F/U-09/06- 84430 CRISTIANA BATES Rebekah 10/02 [facility] Ref[facility]) [facility] [place] T1) OUTPATIENT [id number] BONE GROWTH IN MOUTH X4MTHS MABEL BECERRA 10/03 Released w/o Limitations [facility](M[facility] [place] T1) [facility](Neurolo gy NMCP) OUTPATIENT [id number] F/U MARLEY CRESPO 10/22 Released w/o Limitations [facility](Mariya rology NMCP) [facility] [place] T1) OUTPATIENT [id number] F/U ANXIETY MABEL BECERRA 11/21 Released w/o Limitations [facility] [place] T1) [facility] [place] T1) OUTPATIENT [id number] PAP EXAM -1971 MEGANMABEL S 01/01 Released w/o Limitations [facility] [place] T1) [facility](Neurolo gy NMCP) TELE CONSULT [id number] Notes Entered by: IVET CHACKO 12 Mar 2015 1140 ------- ------- ------- ------- -- Pt states that she needs a consult for an mri MARLEY CRESPO 03/12 [facility](Mariya rology NMCP) [facility] [place] T1) TELE CONSULT [id number] Notes Entered by: PROMISE JESUS 22 May 2015 0823 ------- ------- ------- ------- -- Med refill MEGANMABEL S 05/21 [facility](P [place] T1) [facility](Neurolo gy NMCP) OUTPATIENT [id number] fol/up MARLEY CRESPO 06/17 Released w/o Limitations [facility](Mariya rology [facility]CP) [facility] [id number] EST PCM- F/U Anxiety taking Wellbut EZEQUIEL Cline 09/10 [facility](P [place] T1) TELE CONSULT [id number] Notes Entered by: FAITH MORENO 15 Oct 2015 0945 ------- ------- ------- ------- -- Pop [facility] FAITH MORENO 10/14 Referred for Appointment [facility] [place] [facility] OUTPAT[facility] [id number] cough and congest ion x 8 days OTCs not working . bilater al ear ache EZEQUIEL HUTCHINSON 01/12 Released w/o Limitations [facility] PIN[place] agu[place]([employer]) [place] [facility] OUTPATIENT [id number] acid reflux symptom s EZEQUIEL HUTCHINSON 02/16 Released w/o Limitations [place] [facility] [place] TELE CONSULT [id number] Notes Entered by: ANDREW KAHN 31 Mar 2016 1337 ------- ------- ------- ------- -- Refill bupropr ion JULITO KAHN 03/31 [place] [place] OUTPATIENT [id number] med refill EZEQUIEL HUTCHINSON 04/16 Released with Work/Duty Limitations [place] [place] TELE CONSULT [id number] Notes Entered by: EZEQUIEL HUTCHINSON 05 May 2016 1317 ------- ------- ------- ------- -- lab EZEQUIEL HUTCHINSON 05/05 [place] [place] [facility] [place] OUTPATIENT [id number] MED REFILL EZEQUIEL HUTCHINSON 06/05 Released w/o Limitations [place] [place] [facility] [place] OUTPATIENT [id number] [facility] NS REGARDI NG MED JASPER EZEQUIEL E 10/22 Released w/o Limitations [place] [place] [facility] [place] OUTPATIENT [id number] L Forearm pain x 3 weeks EZEQUIEL HUTCHINSON 12/17 Released w/o Limitations [place] [place] [facility] [place] OUTPATIENT [id number] Med refill EZEQUIEL HUTCHINSON E 02/22 Released w/o Limitations [place] [place] OUT[place]IENT [id number] Notes Entered by: LAURYN NUNN ON N 05 Apr 2017 1042 ------- ------- ------- ------- -- MMRV, TD, PCV13, FLU SHOT BELLO CAPPS 04/05 Released w/o Limitations [place] OUTPATIENT [id number] Med Refill EZEQUIEL HUTCHINSON 05/07 Released w/o Limitations [place] OUTPATIENT [id number] well woman exam EZEQUIEL HUTCHINSON 06/14 Released w/o Limitations [place] [employer] [place] Case [place]) TELE CONSULT [id number] Notes Entered by: Nestor MCALLISTER 27 Sep 2017 1230 ------- ------- ------- ------- -- CM follow up MIKE MCALLISTER 09/27 [place] [facility] OUTPATIENT [id number] medicat ion refill nexium EZEQUIEL HUTCHINSON 12/22 Released w/o Limitations [place] [facility] [place] [place] [id number] ERIKA ALCAZAR 12/29 Released w/o Limitations [place] [place] [facility] [employer] [facility] [place] TELE CONSULT [id number] Notes Entered by: EZEQUIEL HUTCHINSON 21 Jan 2018 1247 ------- ------- ------- ------- -- labs- elevate d TSH EZEQUIEL HUTCHINSON 01/21 [place] [employer] [place] TELE CONSULT [id number] Notes Entered by: JASPER EZEQUIEL Oscar 26 Jan 2018 0912 ------- ------- ------- ------- -- pt in for thryoid check JASPEREZEQUIEL Oscar 01/26 [place] [facility] [place] [facility] [place] OUTPATIENT [id number] 2 referra l for neuro f/u JASPER, JUDY Oscar 02/04 Released w/o Limitations [place] [facility] [place] OUTPATIENT [id number] 3 bite by cat twan gómez, cat not up to date on shots ALVIN GAYLE 06/02 Released w/o Limitations [place] [facility] [place] [facility](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) TELE CONSULT [id number] Notes Entered by: CHARLENE LENTZ 10 Oct 2018 1534 ------- ------- ------- ------- -- Medicin e refill MIYA LENTZ 10/10 [facility](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) [place] TELE CONSULT [id number] Notes Entered by: Farooq VALDERRAMA 30 Jan 2020 1311 ------- ------- ------- ------- -- med request patient from out of town BILLY VALDERRAMA 01/29 [place] [facility]([employer] NMCP) OUTPATIENT [id number] - Pain In Right Shoulde IVIS Berry 06/03 Released w/o Limitations [facility](Spo rts Ortho NMCP) [facility](Immuniz ation [place]) OUTPATIENT [id number] Notes Entered by: RAJAN KIM 12 Jun 2020 0928 ------- ------- ------- ------- -- 1ST DOSE COVID VACCINE . TAMARA SPARKS 06/12 Released w/o Limitations [facility] [place] [facility] [place] OUT[facility] [id number] Notes Entered by: RAJAN KIM 04 Jul 2020 1257 ------- ------- ------- ------- -- 2ND DOSE COVID VACCINE CHRIS GLOVER 07/04 Released w/o Limitations [facility](Imm unizati on [place]) [facility] Outpatient Encounter [id number] 05/26 [facility] Outpatient Encounter [id number] 09/13 [facility] Outpatient Encounter [id number] 01/11 [facility] [place] [facility] Outpatient Encounter [id number] 04/11 [place] [facility] [facility] [facility] Procedures Combined list of: 1) Procedures from Department of [facility] Affairs facilities going back up to thelast 18 months, not all [place] non-surgical procedures are included; 2) All procedures from the Department of Defense facilities. Procedure Procedure Type Code Date Perfomer Comments [facility] e DETERMINATION OF REFRACTIVE STATE [facility] CASE MANAGEMENT, EACH 15 MINUTES [facility] IMMUNIZATION ADMINISTRATION (INCLUDES PERCUTANEOUS, INTRADERMAL, SUBCUTANEOUS, OR INTRAMUSCULAR INJECTIONS); EACH ADDITIONAL VACCINE (SINGLE OR COMBINATION VACCINE/TOXOID) [facility] PSYCHIATRIC DIAGNOSTIC EVALUATION 017 [facility] OTHER BILATERAL ENDOSCOPIC DESTRUCTION OR OCCLUSION OF FALLOPIAN TUBES 995 [facility] LAPAROSCOPY 995 [facility] CULDOCENTESIS 995 [facility] IMMUNIZATION ADM,INTRAMUSCULAR INJ,SEVERE AC RESPIRATORY SYNDROME CORONAVIR 2 (SARSCOV-2) (CORONAVIR DIS [COVID-19]) VACC,MRNALNP,SPIKE PROT,PRESRV FREE,30 MCG/0.3ML DOS,DILUENT RECONSTITUT;2ND DOSE DoD IMMUNIZATION ADM,INTRAMUSCULAR INJ,SEVERE AC RESPIRATORY SYNDROME CORONAVIR 2 (SARSCOV-2) (CORONAVIR DIS [COVID-19]) VACC,MRNALNP,SPIKE PROT,PRESRV FREE,30 MCG/0.3ML DOS,DILUENT RECONSTITUT;1ST DOSE [facility] TELE ASSESS & MGT SRV PROV QUAL NONPHYS HLTH CARE PRO TO EST PAT,PARENT,GUARD NOT ORIG REL ASSESS & MGT SRV PROV W/IN PREV 7 DAYS NOR LEAD ASSESS & MGT SRV/PX W/IN NXT 24 HR/SOON APT;5-10 MIN MED DIS 015 [facility] ECG,TRANSTHOR,RT,IMG DOC (2D),INC M-MODE REC,WHEN PERFORM,DUR REST&CV STRES TEST USE TREADMILL,BICYCLE EXERC &/PHARMACOLOGICALLY IND STRES,INT&REP;INC PERF,CONT ECG MON,W SUPERVIS,A PHYS/OTH QUAL HCP 014 [facility] ELECTROCARDIOGRAM, ROUTINE ECG WITH AT LEAST 12 LEADS; WITH INTERPRETATION AND REPORT [facility] HEPATITIS A AND HEPATITIS B VACCINE (HEPA-HEPB), ADULT DOSAGE, FOR INTRAMUSCULAR USE [facility] ALL POTASSIUM HYDROXIDE (PATRICK) PREPARATIONS 013 [facility] Determination Of Refractive State Determination Of Refractive State [id number] ERIKA THOMASON Ophthalmological New Patient Start Comprehensive Care Ophthalmological New Patient Start Comprehensive Care [id number] ERIKA THOMASON Case Management, each 15 minutes MIKE MCALLISTER Coordinated care fee, maintenance rate MIKE MCALLISTER Immunization Administration One Vaccine Immunization Administration One Vaccine 10511 ROCIO HUITRON Immunization Administration Each Additional Vaccine Immunization Administration Each Additional Vaccine 93528 ROCIO HUITRON Tdap Vaccine Tdap Vaccine 14519 ROCIO HUITRON Tdap; Series #: 1; .5 mL; IM; Right Arm; Mfg: Marco Vasco; Lot: [id number]; VIS given (Luis E: 05/01/14). [facility] Pneumococcal Conjugate Vaccine, 13-Valent, IM Use Pneumococcal Conjugate Vaccine, 13-Valent, IM Use 89822 018 ROCIO HUITRON Pneumococcal conjugate PCV 13; Series #: 1; .5 mL; IM; Right Arm; Mfg: Other; Lot: [id number]; VIS given (Luis E: 01/10/15). [facility] Vaccines Viral Measles, Mumps, Rubella, Varicella (Active) Vaccines Viral Measles, Mumps, Rubella, Varicella (Active) 16670 018 ROCIO HUITRON MMRV; Series #: 1; .5 mL; SC; Left Arm; Mfg: Merck; Lot: [id number]; VIS given (Luis E: 07/26/09). [facility] Non-Physician Phone Call To Patient/Provider Brief (5-10min) Non-Physician Phone Call To Patient/Provider Brief (5-10min) [id number] WILLIAM PELAEZ [facility] Influenza Split Virus Vaccine Age 3+ Years Intramuscular DANAY JENSEN [facility] Immunization Administration One Vaccine Immunization Administration One Vaccine 64141 013 DANAY VARGHESE [facility] Immunization Administration Each Additional Vaccine Immunization Administration Each Additional Vaccine 75392 DANAY JENSEN [facility] Vaccines Viral Yellow Fever Vaccines Viral Yellow Fever 36280 DANAY JENSEN Yellow Fever; Series #: 1; .5 mL; SC; Left Arm; Mfg: Sanofi Pasteur; Lot: [id number]; VIS given (Luis E: 06/04/2010). [facility] Typhoid Vaccine Vi Capsular Polysaccharide, For Intramus Use Typhoid Vaccine Vi Capsular Polysaccharide, For Intramus Use 89913 DANAY JENSEN Typhoid, ViCPs; Series #: 1; .5 mL; IM; Left Arm; Mfg: Sanofi Pasteur; Lot: [id number]; VIS given (Luis E: 08/04/11). [facility] Hepatitis A And Hepatitis B (Intramuscular Use) Adult Dosage Hepatitis A And Hepatitis B (Intramuscular Use) Adult Dosage 45780 DANAY VARGHESE Hep A - Hep B (Twinrix); Series #: 1; 1.0 mL; IM; Right Arm; Mfg: Marco Vasco; Lot: [id number]; VIS given (Luis E: 12/30/10; 04/19/11). [facility] All pota ium hydroxide (patrick) preparations MABEL BECERRA [facility] Screening papanicolaou smear; obtaining, preparing and conveyance of cervical or vaginal smear to laboratory MABEL BECERRA [facility] Wet betito, including preparations of vaginal, cervical or skin specimens MABEL BECERRA Dr.-Supervised Specimen Handling / Transfer: Office To Lab -Supervised Specimen Handling / Transfer: Office To Lab [id number] MABEL BECERRA [facility] Social History Combined list of available smoking, tobacco, and other social history from Department of Defense and Veterans Affairs facilities. Social History Type Response Date Comment Sour e This section is an empty social history section. [facility]
[2024-07-18 08:07] VITALS: BP 114/57; PULSE 73; O2SAT 97; BMI 29.6
--- NOTE | 2024-07-18 08:07 | A.OFFVIS_ITS ---
Vital Signs 07/18/24 08:07 Height 5 ft 7 in Weight 189 lb 2.506 oz BMI 29.6 BP 114/57 L Blood Pressure Location Lt brachial Position Sitting Pulse 73 Pulse Source Pulse Oximeter Pulse Oximetry (%) 97 Oxygen Delivery Method Room Air Intake Visit Reasons: s/p colo,egd Sheridan Intake Note: Pt presents to the office today for a s/p colo,egd. Allergies No Known Allergies Allergy (Verified 07/18/24 08:08) HPI HPI s/p colo,egd Sheridan: Details: LAST VISIT: Screening for colon cancer GERD (gastroesophageal reflux disease) Plan Patient denies any cardiac or respiratory symptoms.? Denies any issues with anesthesia in the past.? Possible sleep apnea will be going for sleep study next month.? No history infectious diseases in the past or present.? Not on any anticoagulation therapy.? No family or personal history of colon cancer or polyps.? Patient denies melena, hematochezia, unintentional weight loss or ribbon like stools.? Patient reports acid reflux for over 2 years. Currently she is on famotidine 40 mg. Patient does experience occasional acid reflux even when she is taking the medication. Will send for upper endoscopy to rule out gastritis, esophagitis, Barretts, gastric or peptic ulcers, H pylori. Discussed at length the pre-procedure,? prep, diet & medications as well as what to expect prior, during and after the procedure.?? Stressed the importance of good bowel prep.? Recommended the use of Vaseline or Calmoseptine OTC & baby wipes with bowel movements to promote comfort.? ?Patient verbalizes understanding and agrees to plan of care.? She was given the opportunity to ask questions and all questions answered.? We will see her after the procedure.? Medications New bisacodyl (Dulcolax (bisacodyl)) take 4 tabs at noon the day before your colonoscopy 20 mg (4 x 5 mg) PO ONCE 1 day 4 tabs 0RF Z12.11 polyethylene glycol 3350 (Miralax) As directed by gastro[facility]ology department at [facility] 238 grams PO ONCE 238 grams 0RF Z12.11 UPPER ENDOSCOPY AND COLONOSCOPY Findings: Larynx:normal Esophagus: GE junction at 42 cm, diaphragm hiatus at 42 cm, bogginess at GEJ, possible short segment barretts, bx taken from here and distal esophagus Stomach: Mild erythema. Biopsies were obtained. Grade 2 flap valve on retroflexed examination of the cardia. Duodenum: Normal bulb and descending duodenum, bx taken, small diverticulum noted in second part Intervention: Biopsies as noted above, COLONOSCOPY Instrument: Olympus variable stiffness pediatric scope 190L Colonoscopy Monitoring: Vital signs and clinical assessment, continuous EKG monitoring, Pulse oximetry, Carbon Dioxide monitoring and blood pressure monitoring were done throughout the procedure. Colon withdrawal time was 9 minutes. Procedure: The patient was placed in the left lateral decubitis position and pre-procedure medications were administered. After a digital rectal examination of the ano-rectum, the video colonoscope was inserted into the rectum and advanced through the colon to the cecum/TI. The colonoscope was slowly withdrawn in a retrograde panoramic fashion and the colon mucosa was carefully examined including a retroflexed view of the rectum. Findings and interventions are described below. Procedure Difficulty:moderate due to redundant colon Findings: Terminal Ileum-normal Cecum:normal Right sided retroflexion- normal Ascending Colon: normal Transverse Colon -normal Descending Colon:normal Sigmoid Colon: normal Rectum: Retroflexion with small internal hemorrhoids, grade 1 Anorectum - normal Colon preparation: [place] Bowel Preparation Scale Right colon; 3 Transverse colon: 3 Left colon; 3 (0 = Unprepared colon segment with mucosa not seen due to solid stool that cannot be cleared. 1 = Portion of mucosa of the colon segment seen, but other areas of the colon segment not well seen due to staining, residual stool and/or opaque liquid. 2 = Minor amount of residual staining, small fragments of stool and/or opaque liquid, but mucosa of colon segment seen well. 3 = Entire mucosa of colon segment seen well with no residual staining, small fragments of stool or opaque liquid) Impression and Post Procedure Diagnosis: Endoscopy Findings: possible barretts esophagitis gastritis Colonoscopy Findings: tortuous, redundant colon internal hemorrhoids Plan: Await Pathology results Repeat Colonoscopy in 10 years or earlier if clinically indicated High fiber diet leaflet avoid straining at stool, epsom salts and sitz bath, anusol supps or cream consider changing to PPi if ongoing GERD sx Above findings were reviewed with the patient and releva PATHOLOGY RESULTS Diagnosis A. Duodenum, biopsy: Duodenal mucosa within normal limits. B. Stomach, biopsy: Antral-type and oxyntic mucosa with mild chronic inactive inflammation; no Helicobacter organisms seen. C. GE junction, biopsy: - Cardiofundic-type mucosa with moderate chronic inactive inflammation; no intestinal metaplasia seen. - Squamous epithelium within normal limits. D. Esophagus, distal, biopsy: Squamous epithelium within normal limits; no inflammation seen TODAY'S VISIT: Patient is here today for follow-up and to discuss upper endoscopy and colonoscopy results. Patient denies any ill effects from the prep, anesthesia or procedure itself. Patient reports that she has been doing well after the procedure. Colonoscopy normal next screening in 10 years, sooner if clinically necessary. Patient denies any melena, hematochezia. Denies any family history of CRC. Patient reports that her acid reflux is controlled with famotidine. Patient reports that she tries to change her diet to avoid symptoms. Patient denies acid reflux, dyspepsia, dysphagia or odynophagia. [facility] Medical History Multiple sclerosis Nocturnal leg movements Witnessed episode of apnea Snoring GERD (gastroesophageal reflux disease) Depression with anxiety Surgical History H/O tubal ligation Hx of discectomy H/O spinal fusion Family History Daughter Mental health disorder Social History Household Members: None Both parents involved: No Caregiver staying overnight: No Housing: House Are you a primary critical care unit manager to a significant other at home: No Do you presently have visiting nurse or other home services: No 75 years or older and lives alone: No Alcohol intake: current Alcohol intake frequency: holidays/special occasions only Alcohol type: wine Patient Tobacco Use Status: Former Tobacco user e-Cigarette/Vaping Use: Never Used service: Yes Current occupational status: employed Current occupation: [employer] at [employer] Cognitive needs: No Hearing needs: Yes (wears hearing aids for tinnitis) Vision needs: Yes (Patient wears glasses.) Review of Systems Const Denies weight gain and Denies weight loss ENT Reports no additional complaints, Denies dysphagia and Denies odynophagia Card Reports no additional complaints Resp Reports no additional complaints GI Denies abdominal pain, Denies belching, Denies melena, Denies bloating, Denies change in bowel habits, Denies dysphagia, Denies excessive flatus, Denies dyspepsia, Reports heartburn (Occasional), Denies diarrhea, Denies loose stools, Denies nausea, Denies odynophagia and Denies vomiting Reports no additional complaints Musc Reports no additional complaints Neuro Reports no additional complaints Psych Reports no additional complaints Endo Reports no additional complaints Physical Exam Vital Signs: Last Vital Signs Pulse 73 07/18/24 08:07 BP 114/57 L 07/18/24 08:07 Pulse Ox 97 07/18/24 08:07 Oxygen Delivery Method Room Air 07/18/24 08:07 BMI result Body Mass Index 29.6 Const General: healthy appearing and no acute distress Nutritional Appearance: obese Orientation/consciousness: patient oriented x3 Resp Effort & Inspection: normal respiratory effort, able to speak in complete sentences, no tracheal deviation and symmetric chest movement Auscultation: clear to auscultation bilaterally Cardio Rate: regular rate GI Inspection: Yes normal to inspection, No distended and Yes obesity Palpation (GI): Soft to palpation, not firm, nontender and No hepatosplenomegaly present Auscultation: normal bowel sounds General: Yes no CVA tenderness Back/Spine/Pelvis Back: no CVA tenderness Skin General skin exam: elasticity normal, turgor normal and dry skin Neuro General: patient oriented x3 Psych Appearance: grossly normal Mental Status: mental status grossly normal Assessment & Plan Assessment & Plan (1) GERD (gastroesophageal reflux disease): Code(s): K21.9 - Gastro-esophageal reflux disease without esophagitis Category: Medical Qualifiers: Esophagitis presence: esophagitis presence not specified Qualified Code(s): K21.9 - Gastro-esophageal reflux disease without esophagitis (2) Status post colonoscopy: Code(s): Z98.890 - Other specified postprocedural states Plan Patient will continue famotidine for another couple months. Patient is going to change her diet and avoid spicy food. She will decrease the dose to 20 mg daily. Patient will call our office if her symptoms will come back we will send her script for PPI. Continue avoiding dietary triggers and late night snacking. Staying upright for minimum 3 hours after meals discussed with patient. Colonoscopy in 10 years, sooner if clinically necessary. Patient is agreeable to current plan of care and verbalizes understanding of instructions. She was given the opportunity to ask questions and all questions answered. Thank you for allowing me to participate in her care Coding Level of Care Code Est Pt Level 3 (69556) Diagnoses Gastroesophageal reflux disease, unspecified whether esophagitis present K21.9 Esophagitis presence: esophagitis presence not specified Status post colonoscopy Z98.890 Time Spent (min) 25 Comment 15 minutes spent with patient and additional 10 minutes spent reviewing her records
== END 2024-07-18 08:23 | disposition home or self-care (01) ==
LOC: HO.HGI 07:51
PROVIDERS: PCP Family Medicine; Visit Provider Nurse Practitioner Family
DX: K21.9 Gastro-esophageal reflux disease without esophagitis (principal); Z98.890 Other specified postprocedural states
CPT/HCPCS: 99213

== ENCOUNTER → 2024-07-18 07:50 | Outpatient (BNVA) | payer OTHER, SELFPAY | PROVIDERS: PCP Family Medicine; Visit Provider Nurse Practitioner Family | DX: K21.9 Gastro-esophageal reflux disease without esophagitis (principal); Z98.890 Other specified postprocedural states | CPT/HCPCS: 99212 ==

== ENCOUNTER → 2024-10-09 08:25 | Outpatient (BNV) | payer OTHER, SELFPAY | PROVIDERS: PCP Family Medicine; Visit Provider Radiology Diagnostic Radiology | DX: D33.0 Benign neoplasm of brain, supratentorial (principal) | CPT/HCPCS: 70553 ==

== ENCOUNTER 2024-10-09 08:29 | Outpatient (REF) | payer OTHER, SELFPAY ==
--- NOTE | ~2024-10-09 | MR_ITS ---
EXAMINATION: MR BRAIN WITHOUT AND WITH CONTRAST CLINICAL INFORMATION: Multiple sclerosis. COMPARISON: None available. TECHNIQUE: Multiplanar, multisequence MRI of the brain was obtained before and after the intravenous administration of 7.5 mL gadolinium based (Gadavist) without reported immediate complications.. FINDINGS: No restricted diffusion. No abnormal enhancement within the intra-axial or the extra-axial compartment. Bilateral, multifocal patchy and punctate subcortical deep white matter hyperintense T2 FLAIR signal abnormality is involving centrum semiovale and danielle radiata. The most confluent in involving the subcortical white matter, left frontal pole. No signal abnormality in the posterior cranial fossa contents/brainstem. Flow-void signal within the main cerebral vessels is normal. Sellar/suprasellar region demonstrated no signal abnormality or masses. Craniocervical junction demonstrates normal position of the cerebellar tonsils. MR/MR head/brain wo/w con IMPRESSION: Supratentorial nonenhancing no restricted diffusion the malalignment plaques, the most confluent in the left frontal lobe. No acute brain abnormality. Electronically signed by: Humberto Galloway MD 10/09/2024 10:28 AM EDT
--- OUTSIDE RECORDS SUMMARY | 2024-10-09 08:50 | XMS_ITS | Patient Health Record ---
Author Organization [facility] GABRIEL Wallace Address [address] [place] [phone] Support Name Relationship Address Phone ABHIJEET CHET Guarantor Unknown [phone] Allergies No Known Allergies Reason For Referral [...] Insured Coverage Start Date Coverage End Date [facility] [address] [place] [phone] [id number] CHET JHA Self - patient is the insured
== END 2024-10-09 08:30 | disposition home or self-care (01) ==
LOC: HO.MRI 08:29
PROVIDERS: PCP Family Medicine; Visit Provider Psychiatry & Neurology Neurology
DX: G35 Multiple sclerosis (principal)
CPT/HCPCS: 70553; A9585

== ENCOUNTER 2024-12-08 07:42 | Outpatient (AMB) | payer OTHER, SELFPAY ==
--- NOTE | 2024-12-08 07:43 | MHC.OFFVIS ---
Vital Signs 12/08/24 07:44 Height 5 ft 7 in Weight 159 lb 2 oz BMI 24.9 BP 98/62 Blood Pressure Location Rt brachial Position Sitting Pulse 70 Pulse Source Pulse Oximeter Pulse Oximetry (%) 96 Oxygen Delivery Method Room Air Intake Visit Reasons: Follow up Intake Note: Follow up MS, snoring and Abnormal involuntary movements, MRI results Jewel Oliving Machine Operator Required: No Accompanied by: Self / Same As Patient Allergies No Known Allergies Allergy (Verified 12/08/24 07:44) HPI Comments Details: 54y/o female with Multiple Sclerosis comes for follow up. MRI brain - showed old plaques but no enhancing leisons she denies any new symptoms she could do the sleep study due to her work schedule. still has lot of sleep issues. History from initial visit- 05/02 she was diagnosed with MS 5-6 years ago in [place] - she had heat intolerance and had falls. MRI showed some MS changes which did not change . she is not any medications now . Her repeat MRI 2 years ago did not show any changes . LP was normal but had post LP headache. she was trialed on Avonex but did not tolerate. Main complaints-snoring, witnessed apneas, gasping arousals, sleep paralysis ? ( usually during stress , she also feels like someone is in the room) Sleep questionnaire- Difficulty falling asleep-no Difficulty staying asleep-yes Number of arousals-2 Snoring-yes Witnessed apneas-yes Gasping arousals-yes Nocturia-no GERD-yes Vivid dreams-yes Acting out dreams -no Abnormal behavior in sleep-/no ABnormal movements in sleep-yes Morning headaches-yes Excessive daytime sleepiness-yes Daytime naps- yes restless legs- no Hallucinations- no sleep paralysis- no Drop attacks- no Sleep study-no Sleep Hygiene- Sleep time- 9pm Wake time - 4.30 am coffee/stimulant use- 1 cup Phone Electronics use-checks the news Exercise- yes Bedroom comfort-yes [facility] Medical History Multiple sclerosis Nocturnal leg movements Witnessed episode of apnea Snoring GERD (gastroesophageal reflux disease) Depression with anxiety Surgical History H/O tubal ligation Hx of discectomy H/O spinal fusion Family History Daughter Mental health disorder Social History Household Members: None Both parents involved: No Caregiver staying overnight: No Housing: House Are you a primary child day care teacher to a significant other at home: No Do you presently have visiting nurse or other home services: No 75 years or older and lives alone: No Alcohol intake: current Alcohol intake frequency: holidays/special occasions only Alcohol type: wine Patient Tobacco Use Status: Former Tobacco user e-Cigarette/Vaping Use: Never Used service: Yes Current occupational status: employed 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 [employer] Cognitive needs: No Hearing needs: Yes (wears hearing aids for tinnitis) Vision needs: Yes (Patient wears glasses.) Physical Exam Vital Signs: Last Vital Signs Pulse 70 12/08/24 07:44 BP 98/62 12/08/24 07:44 Pulse Ox 96 12/08/24 07:44 Oxygen Delivery Method Room Air 12/08/24 07:44 BMI result Body Mass Index 24.9 Const General: cooperative, healthy appearing and comfortable Nutritional Appearance: overweight Orientation/consciousness: patient oriented x3 Eyes Pupils: Equal, round and reactive pupils present Neuro Other: Mallampatti grade 4 Neck- decreased range of motion General: patient oriented x3, gait normal, tone normal, moves all extremities and no focal motor deficits Cranial nerves: Yes Facial sensation intact/muscles of mastication intact, Yes Equal, round and reactive pupils present, Yes Bilaterally intact EOM present, Yes Nystagmus not present, Yes Normal facial strength present, Yes Midline tongue present and Yes Symmetric palate elevation present Cognition (Neuro): normal cognition Gait exam (Neuro): Normal gait present Motor exam (neuro): 5/5 motor strength present throughout and Normal motor muscle tone present throughout Deep tendon reflexes (DTR's): Right triceps reflex intensity grade: 2+, Left triceps reflex intensity grade: 2+, Rt Biceps (C5, C6): 2+, Left biceps reflex intensity grade: 2+, Right brachioradialis reflex intensity grade: 2+, Left brachioradialis reflex intensity grade: 2+, Right patellar reflex intensity grade: 2+ and Left patellar reflex intensity grade: 2+ Coordination: ashole-[id number] test normal Assessment & Plan Assessment & Plan (1) Snoring: Code(s): R06.83 - Snoring Category: Medical (2) Witnessed episode of apnea: Code(s): R06.81 - Apnea, not elsewhere classified Category: Medical (3) Nocturnal leg movements: Code(s): R25.8 - Other abnormal involuntary movements Category: Medical (4) Multiple sclerosis: Code(s): G35 - Multiple sclerosis Category: Medical Plan I will evaluate her with an in lab sleep study to r/o sleep apnea, sleep related movement disorders, parasomnias MRI brain - results reviewed Coding Level of Care Code Est Pt Level 4 (02166) Diagnoses Snoring R06.83 Witnessed episode of apnea R06.81 Nocturnal leg movements R25.8 Multiple sclerosis G35
[2024-12-08 07:44] VITALS: BP 98/62; PULSE 70; O2SAT 96; BMI 24.9
--- OUTSIDE RECORDS SUMMARY | 2024-12-08 07:46 | XMS_ITS | Patient Health Record ---
Author Organization [facility] GABRIEL Wallace Address [address] [place] [phone] Support Name Relationship Address Phone ABHIJEET CHET Guarantor Unknown [phone] Allergies No Known Allergies Reason For Referral No Information Medications Medication SIG (Take, Route, Frequency, Duration) Notes Start Date End Date Status Albuterol Sulfate HFA 108 (90 Base) MCG/ACT Aerosol Solution 2 puffs every 4 hours as needed Inhalation every 4 hrs; Duration: 30 days 03/14/2022 Active Famotidine Active Citalopram Hydrobromide Active Problems Problem Type SNOMED Code ICD Code Onset Dates Problem Status W/U Status Risk Notes Problem Chronic rhinitis (92865062) Rhinitis, 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
== END 2024-12-08 08:02 | disposition home or self-care (01) ==
LOC: HO.HSMS 07:43
PROVIDERS: PCP Family Medicine; Visit Provider Psychiatry & Neurology Neurology
DX: R06.83 Snoring (principal); R06.81 Apnea, not elsewhere classified; R25.8 Other abnormal involuntary movements; G35.D Multiple sclerosis, unspecified
CPT/HCPCS: 99214

== ENCOUNTER → 2024-12-08 07:42 | Outpatient (BNVA) | payer OTHER, SELFPAY | PROVIDERS: PCP Family Medicine; Visit Provider Psychiatry & Neurology Neurology | DX: R06.83 Snoring (principal); R06.81 Apnea, not elsewhere classified; R25.8 Other abnormal involuntary movements; G35.D Multiple sclerosis, unspecified | CPT/HCPCS: 99212 ==

== ENCOUNTER 2025-01-29 11:52 | Outpatient (REF) | payer OTHER, SELFPAY ==
--- NOTE | ~2025-01-29 | MM_ITS ---
EXAMINATION: MM SCREENING DIGITAL BREAST TOMOSYNTHESIS, BILATERAL CLINICAL INFORMATION: Screening. Asymptomatic. COMPARISON: Mammography: Comparison is made with available priors TECHNIQUE: Digital breast mammography with tomosynthesis is performed in both the craniocaudal and mediolateral oblique views along with computer-aided detection (CAD). FINDINGS: There are scattered areas of fibroglandular density. There are no significant masses, abnormal calcifications, or other abnormalities. MM/MM tomosynthesis screening BI IMPRESSION: No mammographic evidence of malignancy. ASSESSMENT: BI-RADS Category 1: Negative RECOMMENDATION: Routine annual mammography screening. 1 year F/U This examination should not preclude the clinical evaluation of a suspicious palpable abnormality. This patient's information was entered into a reminder system with a target due date for their next mammogram. Electronically signed by: Pati Del Rio DO 01/30/2025 05:17 PM [facility]
== END 2025-01-29 11:53 | disposition home or self-care (01) ==
LOC: HO.MAMMO 11:52
PROVIDERS: PCP Family Medicine; Visit Provider Family Medicine
DX: Z12.31 Encounter for screening mammogram for malignant neoplasm of breast (principal)
CPT/HCPCS: 77063; 77067

== ENCOUNTER → 2025-01-29 12:00 | Outpatient (BNV) | payer OTHER, SELFPAY | PROVIDERS: PCP Family Medicine; Visit Provider Internal Medicine | DX: Z12.31 Encounter for screening mammogram for malignant neoplasm of breast (principal) | CPT/HCPCS: 77063; 77067 ==

== ENCOUNTER 2025-02-08 08:03 | Outpatient (AMB) | payer OTHER, SELFPAY ==
--- OUTSIDE RECORDS SUMMARY | 2025-02-08 08:11 | XMS_ITS | Patient Health Record ---
Author Organization [facility] GABRIEL Wallace Address [address] [place] [phone] Support Name Relationship Address Phone ABHIJEET CHET Guarantor Unknown [phone] Allergies No Known Allergies Reason For Referral [...] W/U Status Risk Notes Problem Chronic rhinitis (25711043) Rhinitis, nonallergic (J31.0) Active confirmed Plan Of Treatment No Information Insurance Providers Payer Name Payer Address Payer Phone Subscriber Number Group Number Insured Name Patient Relationship to Insured Coverage Start Date Coverage End Date [facility] [address] [place] [phone] [id number] CHET JHA Self - patient is the insured
[2025-02-08 08:28] VITALS: BP 90/62; PULSE 60; O2SAT 96; BMI 27.2
--- NOTE | 2025-02-08 08:28 | MHC.OFFVIS ---
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 She denies any new symptoms. she could not do the sleep study due to her work schedule, and has still has multiple sleep issues. She has vision difficulties, now bilateral lasix correction in December 2024, Marli Cruz, [facility], floaters at baseline. She has flashes of light with lateral movements of eyes, has 1 headache a week, with pulsating throbbing 6/10pain, lasting for one hour. She deneis n/v vertigo, dizziness, diplopia with lateral gaze, balance and gait issues, denies falls. She feels clumsy when exercising, walking running on treadmill has to be very mindful, strength training help with coordination of balance and gait. She has bilateral uppper extremity paresthesias, l. arm has pins, needles, and low grade pain 3/4 when extending her arms it radiatates in to the thumb an dfirst digit, and r. leg, has lower back pain radiating pain into the r. leg. behind the buttocks, pt sneezed loudly months ago and her back went out due to the vigorous shaking of her back. She has r. foot drop, for years now she has been unable to lift the left foot properly. Her memory is poor, difficulty with processing of words and articulating what she is saying or thinking. She exercises daily, eats a well balanced diet, hydrates and mindful of her own tolerance. She snores gasps, has bruxism, headaches, bleeding from nares from being dried out, vivid dreams, fear inducing, acid reflux improved with weight loss and famotidine. Anxiety managed with lexapro 20mg po daily. SHe goes to bed at 9pm and wakes up at 4am. 2 arousals. Sleep hygiene provided re bedroom environment: Bedroom must be 68 degrees or cooler, dark shades, no blue light or devices in bed, no tv/,or phones. History from initial visit- 05/02 she was diagnosed with MS 5-6 years ago in [place] - she had heat intolerance and had falls. MRI showed some MS changes which did not change . she is not any medications now . Her repeat MRI 2 years ago did not show any changes . LP was normal but had post LP headache. she was trialed on Avonex but did not tolerate. Main complaints-snoring, witnessed apneas, gasping arousals, sleep paralysis ? ( usually during stress , she also feels like someone is in the room) [facility] Medical History Multiple sclerosis Nocturnal leg movements Witnessed episode of apnea Snoring GERD (gastroesophageal reflux disease) Depression with anxiety Surgical History H/O tubal ligation Hx of discectomy H/O spinal fusion Family History Daughter Mental health disorder Social History Household Members: None Both parents involved: No Caregiver staying overnight: No Housing: House Are you a primary critical care physician to a significant other at home: No Do you presently have visiting nurse or other home services: No 75 years or older and lives alone: No Alcohol intake: current Alcohol intake frequency: holidays/special occasions only Alcohol type: wine Patient Tobacco Use Status: Former Tobacco user e-Cigarette/Vaping Use: Never Used service: Yes Current occupational status: employed 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 [employer] Cognitive needs: No Hearing needs: Yes (wears hearing aids for tinnitis) Vision needs: Yes (Patient wears glasses.) Physical Exam Vital Signs: Last Vital Signs Pulse 60 02/08/25 08:28 BP 90/62 02/08/25 08:28 Pulse Ox 96 02/08/25 08:28 Oxygen Delivery Method Room Air 02/08/25 08:28 BMI result Body Mass Index 27.2 Const General: cooperative, comfortable and no acute distress Nutritional Appearance: average body habitus Orientation/consciousness: patient oriented x3 HEENT Face and sinus: Yes face symmetric Teeth and gingiva: other (mallampti score is 3) Eyes Pupils: Equal, round and reactive pupils present Neck Neck: Yes full ROM Resp Effort & Inspection: normal respiratory effort and able to speak in complete sentences Neuro Other: gait is off balance General: patient oriented x3 and moves all extremities Cranial nerves: Yes Equal, round and reactive pupils present, Yes Normal accommodation reflex present, Yes Normal facial strength present, Yes Midline tongue present, Yes Ability to bilaterally rotate head present and Yes Ability to bilaterally elevate shoulders present Cognition (Neuro): normal cognition Motor exam (neuro): Abnormal motor strength present and Abnormal muscle tone present Deep tendon reflexes (DTR's): Right triceps reflex intensity grade: 2+, Left triceps reflex intensity grade: 2+, Rt Biceps (C5, C6): 2+, Left biceps reflex intensity grade: 2+, Right brachioradialis reflex intensity grade: 2+, Left brachioradialis reflex intensity grade: 2+, Right patellar reflex intensity grade: 2+ and Left patellar reflex intensity grade: 2+ Coordination: [id number] test normal Psych Appearance: grossly normal Speech and movement: Normal speech and movement present Affect: normal affect Attitude: cooperative Thought process: Normal thought process present Results Reviewed Results Reviewed: MR/MR head/brain wo/w con IMPRESSION: Supratentorial nonenhancing no restricted diffusion the malalignment plaques, the most confluent in the left frontal lobe. No acute brain abnormality. Assessment & Plan Assessment & Plan (1) Excessive daytime sleepiness: Code(s): G47.19 - Other hypersomnia Category: Medical (2) Snoring: Code(s): R06.83 - Snoring Category: Medical (3) Witnessed episode of apnea: Code(s): R06.81 - Apnea, not elsewhere classified Category: Medical (4) Nocturnal leg movements: Code(s): R25.8 - Other abnormal involuntary movements Category: Medical (5) Multiple sclerosis: Code(s): G35 - Multiple sclerosis Category: Medical (6) Foot drop, bilateral: Comment: AFO bilateral Code(s): M21.371 - Foot drop, right foot; M21.372 - Foot drop, left foot Category: Medical (7) Multiple sclerosis: Code(s): G35 - Multiple sclerosis Category: Medical Plan PSG submitted, I will evaluate her with an in lab sleep study to r/o sleep apnea, sleep related movement disorders, parasomnias MRI brain - results reviewed mri lumbar spine? Referral to [facility] for evaluation and treatment. Foot Drop Bilateral AFO PT declines today. Magnesium 200-400mg PO daily at bedtime. Will f/u in 3 months. Orders: Orders RT PSG in-lab sleep study Today G47.19 - Other hypersomnia, R25.8 - Other abnormal involuntary movements Referrals Neurology Referral G35.D - Multiple sclerosis, unspecified Medications: New [foot braces] As directed 2 ea 0RF foot drop G35 - Multiple sclerosis, M21.371 - Foot drop, right foot, M21.372 - Foot drop, left foot Patient Instructions: Please complete the following fasting labs to rule out deficiencies. CBC/CMP/ B12/ Vit D/ TSH/ Homocysteine and MMA/ Ferritin. Sleep Hygiene provided: set a scheduled bedtime and wake time to help regulate the circadian rhythm and balance the release of pituitary hormones. Sleep in a dark room, temperatures below 68 degrees, and no devices n bed. Limit caffeinated products 6 hours prior to bed, and limit fluids 2-4 hours prior to bed. Gentle night yoga, diffusing essential oils, and playing soft music can be relaxing. Coding Level of Care Code Est Pt Level 4 (02480) Diagnoses Excessive daytime sleepiness G47.19 Snoring R06.83 Witnessed episode of apnea R06.81 Nocturnal leg movements R25.8 Multiple sclerosis G35 Foot drop, bilateral M21.371; M21.372
== END 2025-02-08 09:18 | disposition home or self-care (01) ==
LOC: HO.HSMS 08:03
PROVIDERS: PCP Family Medicine; Visit Provider Physician Assistant Medical
DX: G47.19 Other hypersomnia (principal); R06.83 Snoring; R06.81 Apnea, not elsewhere classified; R25.8 Other abnormal involuntary movements; G35.D Multiple sclerosis, unspecified; M21.371 Foot drop, right foot; M21.372 Foot drop, left foot
CPT/HCPCS: 99214

== ENCOUNTER → 2025-02-08 08:03 | Outpatient (BNVA) | payer OTHER, SELFPAY | PROVIDERS: PCP Family Medicine; Visit Provider Physician Assistant Medical | DX: G47.19 Other hypersomnia (principal); R06.83 Snoring; R06.81 Apnea, not elsewhere classified; R25.8 Other abnormal involuntary movements; M21.371 Foot drop, right foot; M21.372 Foot drop, left foot; G35.D Multiple sclerosis, unspecified | CPT/HCPCS: 99212 ==